=== PATIENT | male | born 1955 | race African-American/Black ===

== ENCOUNTER 2016-10-22 15:59 | Inpatient (IN) | payer OTHER ==
--- NOTE | 2016-10-22 18:45 | PDOC ---
History of Present Illness - History of Present Illness Initial Comments: 10/22/16 18:47 Patient is a 61 year old male with significant medical hx of DM, HLD, and HTN who is presenting to the ED with left second toe ulceration that he noticed today. The patient went to a clinic where he sees his chief communications officer and PCP to get his toenails clipped. When the chief communications officer found the ulcer, he referred the patient to the ED for possible IV abx. Denies fever, chills, or recent abx use. Patient does not remember his podiatrists name. PMD: Zac Encarnacion MD <Talita Valladares - Last Filed: 10/22/16 18:57> <Lizy Cullen - Last Filed: 10/22/16 23:02> - General Chief Complaint: Wound Stated Complaint: WOUND Past History <Talita Valladares - Last Filed: 10/22/16 18:57> - Past Medical History Anemia: No Asthma: No Cancer: No Cardiac Disorders: No CVA: No COPD: No CHF: No Dementia: No Diabetes: Yes GI Disorders: No Disorders: No HTN: Yes Hypercholesterolemia: Yes Liver Disease: No Seizures: No Thyroid Disease: No - Surgical History Abdominal Surgery: No Appendectomy: No Cardiac Surgery: No Cholecystectomy: No Lung Surgery: No Neurologic Surgery: No Orthopedic Surgery: No - Immunization History Immunization Up to Date: Yes - Psycho/Social/Smoking Cessation Hx Anxiety: No Suicidal Ideation: No Smoking History: Former smoker Have you smoked in the past 12 months: No Information on smoking cessation initiated: No Hx Alcohol Use: No Drug/Substance Use Hx: No Substance Use Type: Alcohol, Cocaine, Marijuana Hx Substance Use Treatment: No <Lizy Cullen - Last Filed: 10/22/16 23:02> - Past Medical History Allergies/Adverse Reactions: Allergies Allergy/AdvReac Type Severity Reaction Status Date / Time No Known Allergies Allergy Verified 10/22/16 16:01 Home Medications: Ambulatory Orders Insulin (Levemir) [Levemir Flexpen -] 6 units SQ BID 01/23/14 Aspirin [ASA -] 81 mg PO DAILY 10/22/16 Atorvastatin Ca [Lipitor] 40 mg PO HS 10/22/16 Hydrochlorothiazide [Hctz -] 25 mg PO DAILY 10/22/16 Ibuprofen [Motrin -] 400 mg PO PRN PRN 10/22/16 Losartan Potassium 50 mg PO DAILY 10/22/16 Metformin HCl [Glucophage] 1,000 mg PO BID 10/22/16 Metoprolol Succinate [Toprol Xl -] 25 mg PO DAILY 10/22/16 Review of Systems - Review of Systems Comments:: 10/22/16 18:48 GENERAL/CONSTITUTIONAL: No fever or chills. No weakness. HEAD, EYES, EARS, NOSE AND THROAT: No change in vision. No ear pain or discharge. No sore throat. CARDIOVASCULAR: No chest pain or shortness of breath. RESPIRATORY: No cough, wheezing, or hemoptysis. GASTROINTESTINAL: No nausea, vomiting, diarrhea or constipation. GENITOURINARY: No dysuria, frequency, or change in urination. MUSCULOSKELETAL: Left second toe ulcer. No joint or muscle swelling or pain. No neck or back pain. ENDOCRINE: No increased thirst. No abnormal weight change. SKIN: No rash NEUROLOGIC: No headache, vertigo, loss of consciousness, or change in strength/ sensation. <Talita Valladares - Last Filed: 10/22/16 18:57> *Physical Exam - Vital Signs Last Vital Signs Temp Pulse Resp BP Pulse Ox 97.9 F 95 H 20 151/88 100 10/22/16 16:03 10/22/16 16:03 10/22/16 16:03 10/22/16 16:03 10/22/16 16:03 - Physical Exam Comments: 10/22/16 18:51 GENERAL: Awake, alert, and fully oriented, in no acute distress HEAD: No signs of trauma EYES: PERRLA, EOMI, sclera anicteric, conjunctiva clear ENT: Auricles normal inspection, hearing grossly normal, nares patent, oropharynx clear without exudates. Moist mucosa NECK: Normal ROM, supple, no lymphadenopathy, JVD, or masses LUNGS: Breath sounds equal, clear to auscultation bilaterally. No wheezes, and no crackles HEART: Regular rate and rhythm, normal S1 and S2, no murmurs, rubs or gallops ABDOMEN: Soft, nontender, normoactive bowel sounds. No guarding, no rebound. No masses EXTREMITIES: Left second toe dorsal ulceration with some full erythema and warmth. Bilateral non-pitting pedal edema. 2+ pulses DP and PT bilaterally. Normal range of motion. No clubbing or cyanosis. NEUROLOGICAL: Cranial nerves II through XII grossly intact. Normal speech, normal gait SKIN: Warm, Dry, normal turgor, no rashes or lesions noted. HEMATOLOGIC/LYMPHATIC: No anemia, easy bleeding, or history of blood clots. ALLERGIC/IMMUNOLOGIC: No hives or skin allergy. <Talita Valladares - Last Filed: 10/22/16 18:57> - Vital Signs Last Vital Signs Temp Pulse Resp BP Pulse Ox 97.9 F 95 H 20 151/88 100 10/22/16 16:03 10/22/16 16:03 10/22/16 16:03 10/22/16 16:03 10/22/16 16:03 <Lizy Cullen - Last Filed: 10/22/16 23:02> ED Treatment Course - LABORATORY CBC & Chemistry Diagram: 10/22/16 19:05 10/22/16 19:05 <Lizy Cullen - Last Filed: 10/22/16 23:02> Medical Decision Making - Medical Decision Making 10/22/16 18:44 61 yo M with h/o DM, prior right foot great toe amputation, here today sent from chief communications officer office for concerns for left second toe with small foot ulcer. has had some foot redness and swelling. no feve or chills. no current antiobiotics. on exam small foot ulcer 0.5 x 0.5 cm, mild foot erythema, good pulses. plan : labs, abx, xray foot, will discuss with chief communications officer possible admittion. 10/22/16 22:34 d/w dr. aguilera, covering for dr encarnacion, unsure name of chief communications officer will provide in am. told to admit to hopsitalist. <Lizy Cullen - Last Filed: 10/22/16 23:02> *DC/Admit/Observation/Transfer - Attestations Scribe Attestion: 10/22/16 18:53 Documentation prepared by Talita Valladares, acting as medical doctor nuclear medicine for Lizy Cullen MD. <Talita Valladares - Last Filed: 10/22/16 18:57> - Discharge Dispostion Admit: Yes <Lizy Cullen - Last Filed: 10/22/16 23:02> Diagnosis at time of Disposition: Cellulitis, Ulcer of foot - Referrals Referrals: Zac Encarnacion [Primary Care Provider] -
[2016-10-22 19:14] LABS: EOSINOPHIL 1.3 % (0-4.5); MCH 28.1 pg (25.7-33.7); MCHC 32.6 g/dl (32.0-35.9); MEAN CELL VOLUME 86.3 fl (80-96); MEAN PLT VOLUME 8.4 fl (7.5-11.1); NEUTROPHILS 62.2 % (42.8-82.8); PLATELET COUNT 281 K/MM3 (134-434); RDW 12.6 % (11.9-15.9); WHITE BLOOD COUNT 7.6 K/mm3 (4.0-10.0)
[2016-10-22 19:48] LABS: ALBUMIN 3.3 g/dl (3.4-5.0); BILIRUBIN,TOTAL 0.4 mg/dL (0.2-1.0); CALCIUM 8.7 mg/dL (8.5-10.1); COCKROFT - GAULT 98.75; CREATININE 1.4 mg/dL (0.7-1.3); TOT PROT 6.9 g/dl (6.4-8.2)
[2016-10-22] MEDS ORDERED: VANCOMYCIN 1,000 MG in DEXTROSE 5%-WATER - 250 ML IVPB ONE (20:45)
[2016-10-22] MEDS ORDERED: PIPERACILLIN/TAZOB 3.375 GM/50 ML PRE-DOCKED IV ONE (20:45)
[2016-10-22] MEDS ORDERED: PIPERACILLIN/TAZOB 3.375 GM 50 ML IVPB ONE (21:01)
[2016-10-22] MEDS ORDERED: VANCOMYCIN 1 GRAM (PRE-DOCKED) 250 ML IVPB ONE (21:01)
--- NOTE | 2016-10-23 01:49 | HP ---
CHIEF COMPLAINT: Diabetic Ulcer to L- 2nd toe PCP: HISTORY OF PRESENT ILLNESS: This is a 61 y/o male with a PMHx of: HTN, HLD, DM, OA. Who presents to the ED with a diabetic ulcer to L- 2nd digit x? several days. Patient was sent in from the associate quality engineer's office for admission for IV ABX for a diabetic ulcer. Patient states" I'm on my feet a lot and my sneakers and shoes are a little tight." Patient reports having diabetic ulcer's in the past, which resulted in an amputation of his R- great toe. Patient denies fever, chills, SOB, CP, AP, N/V/D , dysuria. ER course was notable for: (1) No leukocytosis, afebrile (2) Glucose 126 (3) Recent Travel: None PAST MEDICAL HISTORY: See HPI PAST SURGICAL HISTORY: Amputation of R- Great Toe Social History: Smoking: Former 30 yrs ago Alcohol: Occasional- Beer Drugs: None Lives Independently, employed [employer] Family History: Father: Cardiac, Ulcer, Mother: Brain Tumor, DM Brother: DM Daughter: Bipolar, Anxiety Allergies No Known Allergies Allergy (Verified 10/22/16 16:01) HOME MEDICATIONS: Home Medications Medication Instructions Recorded Insulin (Levemir) [Levemir Flexpen 6 units SQ BID 01/23/14 -] Aspirin [ASA -] 81 mg PO DAILY 10/22/16 Atorvastatin Ca [Lipitor] 40 mg PO HS 10/22/16 Hydrochlorothiazide [Hctz -] 25 mg PO DAILY 10/22/16 Ibuprofen [Motrin -] 400 mg PO PRN PRN 10/22/16 Losartan Potassium 50 mg PO DAILY 10/22/16 Metformin HCl [Glucophage] 1,000 mg PO BID 10/22/16 Metoprolol Succinate [Toprol Xl -] 25 mg PO DAILY 10/22/16 REVIEW OF SYSTEMS CONSTITUTIONAL: Absent: fever, chills, diaphoresis, generalized weakness, malaise, loss of appetite, weight change HEENT: Absent: rhinorrhea, nasal congestion, throat pain, throat swelling, difficulty swallowing, mouth swelling, ear pain, eye pain, visual changes CARDIOVASCULAR: peripheral edema Absent: chest pain, syncope, palpitations, irregular heart rate, lightheadedness RESPIRATORY: Absent: cough, shortness of breath, dyspnea with exertion, orthopnea, wheezing, stridor, hemoptysis GASTROINTESTINAL: Absent: abdominal pain, abdominal distension, nausea, vomiting, diarrhea, constipation, melena, hematochezia GENITOURINARY: Absent: dysuria, frequency, urgency, hesitancy, hematuria, flank pain, genital pain MUSCULOSKELETAL: Absent: myalgia, arthralgia, joint swelling, back pain, neck pain SKIN: diabetic ulcer to Left toe #2 Absent: rash, itching, pallor HEMATOLOGIC/IMMUNOLOGIC: Absent: easy bleeding, easy bruising, lymphadenopathy, frequent infections ENDOCRINE: Absent: unexplained weight gain, unexplained weight loss, heat intolerance, cold intolerance NEUROLOGIC: Absent: headache, focal weakness or paresthesias, dizziness, unsteady gait, seizure, mental status changes, bladder or bowel incontinence PSYCHIATRIC: Absent: anxiety, depression, suicidal or homicidal ideation, hallucinations. PHYSICAL EXAMINATION GENERAL: Awake, alert, and fully oriented, in no acute distress. HEAD: Normal with no signs of trauma. EYES: Pupils equal, round and reactive to light, extraocular movements intact, sclera anicteric, conjunctiva clear. No lid lag. EARS, NOSE, THROAT: Ears normal, nares patent, oropharynx clear without exudates. Moist mucous membranes. NECK: Normal range of motion, supple without lymphadenopathy, JVD, or masses. LUNGS: Breath sounds equal, clear to auscultation bilaterally. No wheezes, and no crackles. No accessory muscle use. HEART: Regular rate and rhythm, normal S1 and S2 without murmur, rub or gallop. ABDOMEN: Soft, nontender, not distended, normoactive bowel sounds, no guarding, no rebound, no masses. No hepatomegaly or splenomegaly. MUSCULOSKELETAL: Normal range of motion at all joints. No bony deformities or tenderness. No CVA tenderness. UPPER EXTREMITIES: 2+ pulses, warm, well-perfused. No cyanosis. No clubbing. No peripheral edema. LOWER EXTREMITIES: 2+ pulses, warm, well-perfused. No calf tenderness. +2 pitting edema bilaterally below knee- feet NEUROLOGICAL: Cranial nerves II-XII intact. Normal speech. Gait not observed. PSYCHIATRIC: Cooperative. Good eye contact. Appropriate mood and affect. SKIN: Warm, dry, normal turgor, no rashes. Left second toe dorsal ulceration with some full erythema and warmth. Normal capillary refill. Laboratory Results - last 24 hr 10/22/16 10/22/16 10/22/16 19:05 19:05 19:05 WBC 7.6 RBC 3.97 L Hgb 11.2 L Hct 34.3 L MCV 86.3 MCHC 32.6 RDW 12.6 Plt Count 281 D MPV 8.4 Neutrophils % 62.2 Lymphocytes % 27.7 D Monocytes % 7.8 Eosinophils % 1.3 Basophils % 1.0 Sodium 139 Potassium 4.4 Chloride 106 Carbon Dioxide 23 Anion Gap 10 BUN 27 H D Creatinine 1.4 H Creat Clearance w eGFR 51.18 Random Glucose 126 H D Lactic Acid 1.239 Calcium 8.7 Total Bilirubin 0.4 AST 17 No NALT 29 Alkaline Phosphatase 86 Total Protein 6.9 Albumin 3.3 L ASSESSMENT/PLAN: This is a 61 y/o male with a PMHx of HTN,HLD, DM, OA. Admitted for Cellulitis Left 2nd toe, Diabetic Ulcer for further evaluation of their emergent condition. Plan: 1. ID: Cellulitis/ Diabetic Ulcer Left 2nd Toe - Blood Culture - No leukocytosis, afebrile - Started on Vancomycin, Zosyn in ED - Will continue - Appreciate ID consult - Monitor CBC - Monitor vitals - Wound care nurse 2. Card: HTN/HLD - Monitor BP - Continue home meds - Monitor renal function - Monitor LFTs 3. Endo: Diabetes Mellitus - Not Controlled - BGMs - ISS - HgbA1C in am 4. Musc: OA - Tylenol prn 5. FEN - Patient tolerates PO fluids - Replete lytes prn - Diabetic, Cardiac Prudent Diet 6. DVT Prophylaxis - OOB - SCDs - Heparin SQ Problem List - Problem (1) Cellulitis Code(s): L03.90 - CELLULITIS, UNSPECIFIED (2) Foot ulcer Code(s): L97.509 - NON-PRESSURE CHRONIC ULCER OTH PRT UNSP FOOT W UNSP SEVERITY (3) Diabetes Code(s): E11.9 - TYPE 2 DIABETES MELLITUS WITHOUT COMPLICATIONS (4) Diabetic foot Code(s): E11.8 - TYPE 2 DIABETES MELLITUS WITH UNSPECIFIED COMPLICATIONS (5) Hypertension Code(s): I10 - ESSENTIAL (PRIMARY) HYPERTENSION (6) HLD (hyperlipidemia) Code(s): E78.5 - HYPERLIPIDEMIA, UNSPECIFIED (7) DVT prophylaxis Code(s): UNZ6575 - Visit type - Emergency Visit Emergency Visit: Yes ED Registration Date: 10/22/16 Care time: The patient presented to the Emergency Department on the above date and was hospitalized for further evaluation of their emergent condition. - New Patient This patient is new to me today: Yes Date on this admission: 10/23/16 - Critical Care Critical Care patient: No
[2016-10-23 05:25] VITALS: BMI 40.0
[2016-10-23] MEDS ORDERED: VANCOMYCIN 1,000 MG in DEXTROSE 5%-WATER - 250 ML IVPB SCH (06:00)
[2016-10-23] MEDS ORDERED: VANCOMYCIN 1 GRAM (PRE-DOCKED) 1,000 MG/250 ML BAG IVPB ONE (06:15)
[2016-10-23] MEDS: HEPARIN NA (PORCINE) 5,000 UNITS/ML 1ML VIAL SQ SCH ×3 (06:21→21:34)
[2016-10-23] MEDS: INSULIN SLIDING SCALE (NOVOLOG) 1 VIAL SQ SCH ×3 (06:23→17:57)
[2016-10-23] MEDS ORDERED: PIPERACILLIN/TAZOB 3.375 GM/50 ML PRE-DOCKED IVPB ONE ×2 (06:45→10:00)
[2016-10-23 07:34] LABS: BASOPHIL 0.8 % (0-2.0); EOSINOPHIL 1.6 % (0-4.5); MCH 28.4 pg (25.7-33.7); MCHC 33.1 g/dl (32.0-35.9); MEAN CELL VOLUME 85.6 fl (80-96); MEAN PLT VOLUME 8.3 fl (7.5-11.1); NEUTROPHILS 65.6 % (42.8-82.8); PLATELET COUNT 259 K/MM3 (134-434); RDW 12.4 % (11.9-15.9); WHITE BLOOD COUNT 8.7 K/mm3 (4.0-10.0)
--- NOTE | 2016-10-23 09:40 | CONSULT ---
Consult Consult Specialty:: infectious diseases Reason for Consultation:: infected left foot 2nd toe - History of Present Illness Chief Complaint: pain and swelling of the toe History of Present Illness: This is a 61 y/o male with a PMHx of: HTN, HLD, DM, OA. Who presents to the admitted with a diabetic ulcer to L- 2nd digit several days. Patient was sent in from the body worker's office for admission for IV ABX for a diabetic ulcer. Patient states" I'm on my feet a lot and my sneakers and shoes are a little tight." Patient reports having diabetic ulcer's in the past, which resulted in an amputation of his R- great toe. according to the patient he has this problems of he leg since a long time also patient had issues with his right leg also patient has chronic venous insufficiency and has had leg issues off and on he always has edema over both his feet - History Source History Provided By: Patient Limitations to Obtaining History: No Limitations - Alcohol/Substance Use Hx Alcohol Use: No - Smoking History Smoking history: Former smoker Have you smoked in the past 12 months: No Home Medications - Allergies Allergies/Adverse Reactions: Allergies Allergy/AdvReac Type Severity Reaction Status Date / Time No Known Allergies Allergy Verified 10/22/16 16:01 - Home Medications Home Medications: Ambulatory Orders Insulin (Levemir) [Levemir Flexpen -] 6 units SQ BID 01/23/14 Aspirin [ASA -] 81 mg PO DAILY 10/22/16 Atorvastatin Ca [Lipitor] 40 mg PO HS 10/22/16 Hydrochlorothiazide [Hctz -] 25 mg PO DAILY 10/22/16 Ibuprofen [Motrin -] 400 mg PO PRN PRN 10/22/16 Losartan Potassium 50 mg PO DAILY 10/22/16 Metformin HCl [Glucophage] 1,000 mg PO BID 10/22/16 Metoprolol Succinate [Toprol Xl -] 25 mg PO DAILY 10/22/16 Review of Systems - Review of Systems Constitutional: reports: No Symptoms Eyes: reports: No Symptoms HENT: reports: No Symptoms Neck: reports: No Symptoms Cardiovascular: reports: No Symptoms Respiratory: reports: No Symptoms Gastrointestinal: reports: No Symptoms Genitourinary: reports: No Symptoms Musculoskeletal: reports: Other Integumentary: reports: Erythema, Wound Neurological: reports: No Symptoms Endocrine: reports: No Symptoms Hematology/Lymphatic: reports: No Symptoms Psychiatric: reports: No Symptoms Physical Exam Vital Signs: Vital Signs Temperature 98.0 F 10/23/16 05:20 Pulse Rate 80 10/23/16 05:20 Respiratory Rate 18 10/23/16 05:20 Blood Pressure 156/69 10/23/16 05:20 O2 Sat by Pulse Oximetry (%) 96 10/23/16 05:04 Constitutional: Yes: No Distress, Calm, Obese HENT: Yes: Atraumatic Neck: Yes: Supple Cardiovascular: Yes: Regular Rate and Rhythm Respiratory: Yes: Regular, CTA Bilaterally Gastrointestinal: Yes: Normal Bowel Sounds, Soft Musculoskeletal: Yes: Other Extremities: Yes: Other Edema: LLE: 2+, RLE: 2+ Peripheral Pulses WNL: (could not feel dp on both sides) Integumentary: Yes: Venous Stasis Changes, Other (ulcer on the 2nd toe left foot ,minimal erythema and draiange) Wound/Incision: Yes: Open to air Neurological: Yes: Alert, Oriented Psychiatric: Yes: Alert, Oriented Labs: CBC, BMP 10/23/16 06:30 Imaging - Results X-ray: Report Reviewed (official result awaited) Assessment/Plan Diabetic Ulcer Left 2nd Toe HTN/HLD : Diabetes Mellitus OA obesity plan started patient on unasyn wound care vascular should see the patient for blood supply rest as per primary team
[2016-10-23] MEDS ORDERED: HYDROCHLOROTHIAZIDE 25 MG TABLET (FP) PO SCH (10:00)
[2016-10-23] MEDS ORDERED: PIPERACILLIN/TAZOB 3.375 GM/50 ML PRE-DOCKED IVPB SCH (10:00)
[2016-10-23] MEDS: LOSARTAN POTASSIUM 50 MG TABLET (FP) PO SCH (10:13)
[2016-10-23] MEDS: METOPROLOL SUCCINATE 25 MG TAB.SR.24H (FP) PO SCH (10:13)
[2016-10-23] MEDS: ASPIRIN 81 MG CHEWABLE TABLETS PO SCH (10:13)
[2016-10-23] MEDS: AMPICILLIN NA/SULBACTAM NA 3 GM in SODIUM CHLORIDE 100 ML IVPB SCH ×2 (12:15→19:58)
--- NOTE | 2016-10-23 16:14 | EKG ---
Test Reason : Blood Pressure : / mmHG Vent. Rate : 078 BPM Atrial Rate : 078 BPM P-R Int : 208 ms QRS Dur : 084 ms QT Int : 400 ms P-R-T Axes : 082 -45 051 degrees QTc Int : 456 ms POOR DATA QUALITY, INTERPRETATION MAY BE ADVERSELY AFFECTED NORMAL SINUS RHYTHM LEFT AXIS DEVIATION PULMONARY DISEASE PATTERN SEPTAL INFARCT , AGE UNDETERMINED INFERIOR INFARCT , AGE UNDETERMINED ABNORMAL ECG WHEN COMPARED WITH ECG OF 15-NOV-2013 17:48, SEPTAL INFARCT IS NOW PRESENT NO SIGNIFICANT CHANGE WAS FOUND Confirmed by MIKAL CHILDS MD ([id number]) on 10/23/2016 4:14:38 PM Referred By: Confirmed By:MIKAL CHILDS MD
--- NOTE | 2016-10-23 17:19 | PN ---
Physical Exam: SUBJECTIVE: Patient seen and examined. He was sitting up in bed, denies any pain to his left second toe. OBJECTIVE: Vital Signs Period Temp Pulse Resp BP Sys/Herron Pulse Ox Last 24 Hr 97.6 F-98.0 F 79-80 18-18 152-158/69-100 96-96 GENERAL: Awake, alert, and fully oriented, in no acute distress. HEAD: Normal with no signs of trauma. EYES: Pupils equal, round and reactive to light, extraocular movements intact, sclera anicteric, conjunctiva clear. No lid lag. EARS, NOSE, THROAT: Ears normal, nares patent, oropharynx clear without exudates. Moist mucous membranes. NECK: Normal range of motion, supple without lymphadenopathy, JVD, or masses. LUNGS: Breath sounds equal, clear to auscultation bilaterally. No wheezes, and no crackles. No accessory muscle use. HEART: Regular rate and rhythm ABDOMEN: Soft, nontender, not distended, normoactive bowel sounds, no guarding, no rebound, no masses. No hepatomegaly or splenomegaly. MUSCULOSKELETAL: Normal range of motion at all joints. No bony deformities or tenderness. No CVA tenderness. LOWER EXTREMITIES: +2 pitting edema bilaterally below knee>feet - diabetic discolored ulceration on left second toe NEUROLOGICAL: Normal speech. Gait not observed. PSYCHIATRIC: Cooperative. Good eye contact. Appropriate mood and affect. Laboratory Results - last 24 hr 10/23/16 10/23/16 10/23/16 06:21 06:30 12:09 WBC 8.7 RBC 3.83 L Hgb 10.8 L Hct 32.8 L MCV 85.6 MCHC 33.1 RDW 12.4 Plt Count 259 MPV 8.3 Neutrophils % 65.6 Lymphocytes % 23.2 Monocytes % 8.8 Eosinophils % 1.6 Basophils % 0.8 POC Glucometer 132 161 Active Medications Generic Name Dose Route Start Last Admin Trade Name Freq PRN Reason Stop Dose Admin Aspirin 81 mg 10/23/16 10:00 10/23/16 10:13 Asa - PO 81 mg DAILY GERARDO Administration Atorvastatin Calcium 40 mg 10/23/16 22:00 Lipitor - PO HS GERARDO Heparin Sodium (Porcine) 5,000 unit 10/23/16 06:00 10/23/16 06:21 Heparin - SQ 5,000 unit TID GERARDO Administration Ampicillin Sodium/Sulbactam 100 mls @ 200 mls/hr 10/23/16 10:00 10/23/16 12:15 Sodium 3 gm/ Sodium Chloride IVPB 200 mls/hr Q8H-IV GERARDO Administration Insulin Aspart 1 vial 10/23/16 07:00 10/23/16 12:14 Novolog Vial Sliding Scale - SQ 2 units TIDAC GERARDO Administration Protocol Losartan Potassium 50 mg 10/23/16 10:00 10/23/16 10:13 Cozaar - PO 50 mg DAILY GERARDO Administration Metoprolol Succinate 25 mg 10/23/16 10:00 10/23/16 10:13 Toprol Xl - PO 25 mg DAILY GERARDO Administration ASSESSMENT/PLAN: Patient is a 61 year old male with a significant medical history of hypertension , hyperlipidemia, diabetes and right great toe amputation. He was sent from his accredited pharmacy technician office for admission for antibiotics for a left second toe ulcer and discoloration. Patient reports having diabetic ulcer's in the past, with amputation of his right great toe. Patient denies fever, chills or shortness of breath. ID: Left second diabetic toe ulceration and cellulitis, +slough Assessment/Plan: Started on Unasyn by ID Monitor vitals and WBC Given Vanco and Zosyn in ED Fast Food Cashier and vascular consulted Left great toe with discoloration Cardiology: Hypertension Assessment/Plan: monitor BP On Cozaar 50mg daily, Metoprolol 25mg daily Hyperlipidemia Assessment/Plan: On Lipitor Endocrine: Diabetes Mellitus Assessment/Plan: Novolog sliding scale Will order [id number] Renal: CHARLES - Creat 1.4, baseline 1.1 Will hydrate with NS @75cc and monitor F.E.N. Fluids: tolerating PO. on ivf for CHARLES Electrolytes: monitor lytes Nutrition: diabetic diet Prophylaxis: DVT Prophy: Heparin BID GI: Protonix 40mg daily Dispositon: Requires inpatient hospitalization. Full Code. Visit type - Emergency Visit Emergency Visit: Yes ED Registration Date: 10/22/16 Care time: The patient presented to the Emergency Department on the above date and was hospitalized for further evaluation of their emergent condition. - New Patient This patient is new to me today: Yes Date on this admission: 10/23/16 - Critical Care Critical Care patient: No - Discharge Referral Referred to [facility] Med P.C.: No
--- NOTE | 2016-10-23 17:53 | CONSULT ---
Consult - Alcohol/Substance Use Hx Alcohol Use: No - Smoking History Smoking history: Former smoker Have you smoked in the past 12 months: No Home Medications - Allergies Allergies/Adverse Reactions: Allergies Allergy/AdvReac Type Severity Reaction Status Date / Time No Known Allergies Allergy Verified 10/22/16 16:01 - Home Medications Home Medications: Ambulatory Orders Insulin (Levemir) [Levemir Flexpen -] 6 units SQ BID 01/23/14 Aspirin [ASA -] 81 mg PO DAILY 10/22/16 Atorvastatin Ca [Lipitor] 40 mg PO HS 10/22/16 Hydrochlorothiazide [Hctz -] 25 mg PO DAILY 10/22/16 Ibuprofen [Motrin -] 400 mg PO PRN PRN 10/22/16 Losartan Potassium 50 mg PO DAILY 10/22/16 Metformin HCl [Glucophage] 1,000 mg PO BID 10/22/16 Metoprolol Succinate [Toprol Xl -] 25 mg PO DAILY 10/22/16 Physical Exam Vital Signs: Vital Signs Temperature 98.5 F 10/23/16 17:36 Pulse Rate 83 10/23/16 17:36 Respiratory Rate 20 10/23/16 17:36 Blood Pressure 151/88 10/23/16 17:36 O2 Sat by Pulse Oximetry (%) 96 10/23/16 05:04 Labs: CBC, BMP 10/23/16 06:30 Assessment/Plan Vascular Surgery Patient is a 61 year old male with significant medical hx of DM, HLD, and HTN who is presenting to the ED with left second toe ulceration that he noticed today. The patient went to a clinic where he sees his crowning hammer operator and PCP to get his toenails clipped. When the crowning hammer operator found the ulcer, he referred the patient to the ED for possible IV abx. Denies fever, chills, or recent abx use. Patient does not remember his podiatrists name. PMD: Zac Encarnacion MD PE Head - NC/AT Lung - CTA heart - RRR abd - soft,nt,nd, ext - left second toe ulcer with slough No palpable pulses. A/P Left second toe ulcer with slough No palpable pulses. Currently the Cr is 1.4. Please hydrate and we can either get a CTA or do a angiogram with intervention. Will see ang to see if the Cr is improving. Emma to ulcer daily Esa Mead DO
[2016-10-23] MEDS ORDERED: SODIUM CHLORIDE 1,000 ML IV SCH (18:45)
[2016-10-23] MEDS: COLLAGENASE CLOSTRIDIUM HIST. 30 GRAMS TUBE TP SCH (19:59)
[2016-10-23] MEDS: SODIUM CHLORIDE 1,000 ML IV SCH (20:01)
[2016-10-23] MEDS: ATORVASTATIN CA 40 MG TABLET (FP) PO SCH (21:32)
[2016-10-24] MEDS: AMPICILLIN NA/SULBACTAM NA 3 GM in SODIUM CHLORIDE 100 ML IVPB SCH ×3 (01:17→17:34)
[2016-10-24] MEDS: HEPARIN NA (PORCINE) 5,000 UNITS/ML 1ML VIAL SQ SCH ×3 (06:02→21:28)
[2016-10-24] MEDS: INSULIN SLIDING SCALE (NOVOLOG) 1 VIAL SQ SCH ×3 (06:04→17:33)
[2016-10-24 08:44] LABS: ANION GAP 11 (8-16); CALCIUM 8.7 mg/dL (8.5-10.1); CO2 25 mmol/L (21-32); COCKROFT - GAULT 122.66; CREATININE 1.2 mg/dL (0.7-1.3); GLUCOSE,RANDOM 141 mg/dL (74-106)
[2016-10-24] MEDS ORDERED: PT OWN MED DRAWER 7, Y5N ONE ×2 (09:22→17:23)
[2016-10-24] MEDS: PANTOPRAZOLE 40 MG TABLET (FP) PO SCH (09:24)
[2016-10-24] MEDS: LOSARTAN POTASSIUM 50 MG TABLET (FP) PO SCH (09:24)
[2016-10-24] MEDS: METOPROLOL SUCCINATE 25 MG TAB.SR.24H (FP) PO SCH (09:24)
[2016-10-24] MEDS: ASPIRIN 81 MG CHEWABLE TABLETS PO SCH (09:24)
[2016-10-24] MEDS: COLLAGENASE CLOSTRIDIUM HIST. 30 GRAMS TUBE TP SCH (09:25)
[2016-10-24 10:08] LABS: BASOPHIL 0.6 % (0-2.0); EOSINOPHIL 1.3 % (0-4.5); MCH 28.7 pg (25.7-33.7); MCHC 33.8 g/dl (32.0-35.9); MEAN PLT VOLUME 8.6 fl (7.5-11.1); NEUTROPHILS 68.8 % (42.8-82.8); PLATELET COUNT 285 K/MM3 (134-434); RDW 12.6 % (11.9-15.9); WHITE BLOOD COUNT 8.4 K/mm3 (4.0-10.0)
--- NOTE | 2016-10-24 10:09 | PN ---
Physical Exam: SUBJECTIVE: Patient seen and examined. State that he is starting to have pain, discomfort of the left foot. As per patient, tylenol is not relieving his pain/discomfort OBJECTIVE: Will order Motrin x 1 and monitor Left lower ext +edema, no redness. Right ankle with more edema Doppler for bilateral lower ext to rule out DVT Creatinine improved with hydration 1.7>1.2 Vital Signs Period Temp Pulse Resp BP Sys/Herron Pulse Ox Last 24 Hr 97.7 F-98.5 F 80-83 18-20 137-151/70-88 GENERAL: Awake, alert, and fully oriented, in no acute distress. HEAD: Normal with no signs of trauma. EYES: Pupils equal, round and reactive to light, extraocular movements intact, sclera anicteric, conjunctiva clear. No lid lag. EARS, NOSE, THROAT: Ears normal, nares patent, oropharynx clear without exudates. Moist mucous membranes. NECK: Normal range of motion, supple without lymphadenopathy, JVD, or masses. LUNGS: Breath sounds equal, clear to auscultation bilaterally. No wheezes, and no crackles. No accessory muscle use. HEART: Regular rate and rhythm ABDOMEN: Soft, nontender, not distended, normoactive bowel sounds, no guarding, no rebound, no masses. No hepatomegaly or splenomegaly. MUSCULOSKELETAL: Normal range of motion at all joints. No bony deformities or tenderness. No CVA tenderness. LOWER EXTREMITIES: +3 pitting edema of right leg>foot, +2 pitting edema of left leg >foot. +diabetic discolored ulceration on left second toe, amputation of right foot great toe. NEUROLOGICAL: Normal speech. Gait not observed. PSYCHIATRIC: Cooperative. Good eye contact. Appropriate mood and affect. Laboratory Results - last 24 hr 10/23/16 10/23/16 10/24/16 12:09 17:56 05:47 Sodium Potassium Chloride Carbon Dioxide Anion Gap BUN Creatinine POC Glucometer 161 164 154 Random Glucose Calcium 10/24/16 07:30 Sodium 140 Potassium 4.1 Chloride 104 Carbon Dioxide 25 Anion Gap 11 BUN 19 H D Creatinine 1.2 POC Glucometer Random Glucose 141 H Calcium 8.7 Active Medications Generic Name Dose Route Start Last Admin Trade Name Freq PRN Reason Stop Dose Admin Aspirin 81 mg 10/23/16 10:00 10/24/16 09:24 Asa - PO 81 mg DAILY GERARDO Administration Atorvastatin Calcium 40 mg 10/23/16 22:00 10/23/16 21:32 Lipitor - PO 40 mg HS GERARDO Administration Collagenase 1 applic 10/23/16 18:00 10/24/16 09:25 Santyl - TP 1 applic DAILY GERARDO Administration Heparin Sodium (Porcine) 5,000 unit 10/23/16 06:00 10/24/16 06:02 Heparin - SQ 5,000 unit TID GERARDO Administration Ampicillin Sodium/Sulbactam 100 mls @ 200 mls/hr 10/23/16 10:00 10/24/16 09:24 Sodium 3 gm/ Sodium Chloride IVPB 200 mls/hr Q8H-IV GERARDO Administration Sodium Chloride 1,000 mls @ 75 mls/hr 10/23/16 18:45 10/23/16 20:01 Normal Saline - IV 75 mls/hr ASDIR GERARDO Administration Insulin Aspart 1 vial 10/23/16 07:00 10/24/16 06:04 Novolog Vial Sliding Scale - SQ 2 units TIDAC GERARDO Administration Protocol Losartan Potassium 50 mg 10/23/16 10:00 10/24/16 09:24 Cozaar - PO 50 mg DAILY GERARDO Administration Metoprolol Succinate 25 mg 10/23/16 10:00 10/24/16 09:24 Toprol Xl - PO 25 mg DAILY GERARDO Administration Pantoprazole Sodium 40 mg 10/24/16 10:00 10/24/16 09:24 Protonix - PO 40 mg DAILY GERARDO Administration ASSESSMENT/PLAN: Patient is a 61 year old male with a significant medical history of hypertension , hyperlipidemia, diabetes and right great toe amputation. He was sent from his osteologist office for admission for antibiotics for a left second toe ulcer and discoloration. Patient reports having diabetic ulcer's in the past, with amputation of his right great toe. Patient denies fever, chills or shortness of breath. Imaging: Vascular studty: DVT of bilateral lower ext. negative ID: Left second diabetic toe ulceration and cellulitis, +slough Assessment/Plan: Left foot 2nd toe with discoloration, diabetic ulcer, on Santyl Amputated great toe of the right foot Started on Unasyn by ID on 10/23 WBC within normal limits, remains afebrile Negative for DVT of bilateral lower extremities Vice President [employer] consulted Vascular following Cardiology: Hypertension Assessment/Plan: monitor BP On Cozaar 50mg daily, Metoprolol 25mg daily Hyperlipidemia Assessment/Plan: On Lipitor Endocrine: Diabetes Mellitus Assessment/Plan: Novolog sliding scale Will order [id number] Renal: CHARLES - Creat 1.2, baseline 1.1 Will hydrate with NS @75cc and monitor F.E.N. Fluids: tolerating PO. on ivf for CHARLES Electrolytes: monitor lytes Nutrition: diabetic diet Prophylaxis: DVT Prophy: Heparin BID GI: Protonix 40mg daily Dispositon: Requires inpatient hospitalization. Full Code. Visit type - Emergency Visit Emergency Visit: Yes ED Registration Date: 10/22/16 Care time: The patient presented to the Emergency Department on the above date and was hospitalized for further evaluation of their emergent condition. - New Patient This patient is new to me today: No - Critical Care Critical Care patient: No - Discharge Referral Referred to [facility] Med P.C.: No
[2016-10-24] MEDS ORDERED: IBUPROFEN 400 MG TABLET (FP) PO ONE ×2 (10:45→14:00)
[2016-10-24 10:53] LABS: ALBUMIN 3.2 g/dl (3.4-5.0); ALK PHOS 87 U/L (45-117); BILIRUBIN,TOTAL 0.7 mg/dL (0.2-1.0); SGOT/AST 15 U/L (15-37); SGPT/ALT 21 U/L (12-78); TOT PROT 6.8 g/dl (6.4-8.2)
--- NOTE | 2016-10-24 17:14 | PN ---
Progress Note, Physician History of Present Illness: stable no new issues - Current Medication List Current Medications: Active Medications Aspirin (Asa -) 81 mg PO DAILY [facility] Last Admin: 10/24/16 09:24 Dose: 81 mg Atorvastatin Calcium (Lipitor -) 40 mg PO HS [facility] Last Admin: 10/23/16 21:32 Dose: 40 mg Collagenase (Santyl -) 1 applic TP DAILY [facility] Last Admin: 10/24/16 09:25 Dose: 1 applic Heparin Sodium (Porcine) (Heparin -) 5,000 unit SQ TID [facility] Last Admin: 10/24/16 13:43 Dose: 5,000 unit Ampicillin Sodium/Sulbactam (Sodium 3 gm/ Sodium Chloride) 100 mls @ 200 mls/ hr IVPB Q8H-IV [facility] Last Admin: 10/24/16 09:24 Dose: 200 mls/hr Sodium Chloride (Normal Saline -) 1,000 mls @ 75 mls/hr IV ASDIR [facility] Last Admin: 10/23/16 20:01 Dose: 75 mls/hr Insulin Aspart (Novolog Vial Sliding Scale -) 1 vial SQ TIDAC [facility] PRN Reason: Protocol Last Admin: 10/24/16 12:40 Dose: Not Given Losartan Potassium (Cozaar -) 50 mg PO DAILY [facility] Last Admin: 10/24/16 09:24 Dose: 50 mg Metoprolol Succinate (Toprol Xl -) 25 mg PO DAILY [facility] Last Admin: 10/24/16 09:24 Dose: 25 mg Pantoprazole Sodium (Protonix -) 40 mg PO DAILY [facility] Last Admin: 10/24/16 09:24 Dose: 40 mg - Objective Vital Signs: Vital Signs Temperature 97.9 F 10/24/16 16:45 Pulse Rate 76 10/24/16 16:45 Respiratory Rate 18 10/24/16 16:45 Blood Pressure 141/89 10/24/16 16:45 O2 Sat by Pulse Oximetry (%) 96 10/23/16 10:00 Constitutional: Yes: No Distress, Calm Cardiovascular: Yes: Regular Rate and Rhythm Respiratory: Yes: Regular, CTA Bilaterally Gastrointestinal: Yes: Normal Bowel Sounds, Soft Musculoskeletal: Yes: Other Extremities: Yes: Other Edema: LLE: 1+, RLE: 1+ Peripheral Pulses: Left Doralis Pedis: 0, Right Dorsalis Pedis: 0 Wound/Incision: Yes: Other Neurological: Yes: Alert, Oriented Psychiatric: Yes: Alert, Oriented Labs: CBC, BMP 10/24/16 07:00 10/24/16 07:30 Assessment/Plan Diabetic Ulcer Left 2nd Toe HTN/HLD : Diabetes Mellitus OA obesity pvd plan vascular note noted agree with the plan continue abx for now rest as per primary team
[2016-10-24] MEDS: ATORVASTATIN CA 40 MG TABLET (FP) PO SCH (21:28)
[2016-10-25] MEDS ORDERED: PT OWN MED DRAWER 7, Y5N ONE ×3 (00:59→16:59)
[2016-10-25] MEDS: AMPICILLIN NA/SULBACTAM NA 3 GM in SODIUM CHLORIDE 100 ML IVPB SCH ×3 (01:08→17:01)
[2016-10-25] MEDS: INSULIN SLIDING SCALE (NOVOLOG) 1 VIAL SQ SCH ×3 (06:07→16:56)
[2016-10-25] MEDS: SODIUM CHLORIDE 1,000 ML IV SCH (06:32)
[2016-10-25] MEDS: HEPARIN NA (PORCINE) 5,000 UNITS/ML 1ML VIAL SQ SCH ×3 (06:32→23:02)
[2016-10-25 07:52] LABS: BASOPHIL 0.8 % (0-2.0); EOSINOPHIL 2.5 % (0-4.5); MCH 28.5 pg (25.7-33.7); MCHC 33.3 g/dl (32.0-35.9); MEAN CELL VOLUME 85.5 fl (80-96); MEAN PLT VOLUME 8.6 fl (7.5-11.1); NEUTROPHILS 59.4 % (42.8-82.8); PLATELET COUNT 275 K/MM3 (134-434); RDW 12.4 % (11.9-15.9); WHITE BLOOD COUNT 6.4 K/mm3 (4.0-10.0)
[2016-10-25 08:32] LABS: BILIRUBIN,TOTAL 0.5 mg/dL (0.2-1.0); SGOT/AST 12 U/L (15-37); SGPT/ALT 19 U/L (12-78); TOT PROT 6.4 g/dl (6.4-8.2)
[2016-10-25 08:35] LABS: ALK PHOS 80 U/L (45-117); ANION GAP 14 (8-16); CALCIUM 8.2 mg/dL (8.5-10.1); CO2 23 mmol/L (21-32); COCKROFT - GAULT 133.81; CREATININE 1.1 mg/dL (0.7-1.3); GLUCOSE,RANDOM 140 mg/dL (74-106)
[2016-10-25] MEDS: PANTOPRAZOLE 40 MG TABLET (FP) PO SCH (09:48)
[2016-10-25] MEDS: LOSARTAN POTASSIUM 50 MG TABLET (FP) PO SCH (09:48)
[2016-10-25] MEDS: ASPIRIN 81 MG CHEWABLE TABLETS PO SCH (09:48)
[2016-10-25] MEDS: METOPROLOL SUCCINATE 50 MG TAB.SR.24H (FP) PO SCH ×2 (09:49→11:34)
[2016-10-25] MEDS: COLLAGENASE CLOSTRIDIUM HIST. 30 GRAMS TUBE TP SCH (09:49)
--- NOTE | 2016-10-25 10:15 | PN ---
Physical Exam: SUBJECTIVE: Patient seen and examined. States he is feeling down since being hospitalized. "i cant provided for my family being in here" Wants to go home tomorrow. OBJECTIVE: Creatinine improved with IVF IVF stopped secondary to hypertension Assured patient we are working on a safe d/c plan for him but he will need to have vascular and ID clearance prior to d/c Vital Signs Period Temp Pulse Resp BP Sys/Herron Pulse Ox Last 24 Hr 97 F-98.7 F 76-90 18-20 131-161/71-105 99 GENERAL: Awake, alert, and fully oriented, in no acute distress. HEAD: Normal with no signs of trauma. EYES: Pupils equal, round and reactive to light, extraocular movements intact, sclera anicteric, conjunctiva clear. No lid lag. EARS, NOSE, THROAT: Ears normal, nares patent, oropharynx clear without exudates. Moist mucous membranes. NECK: Normal range of motion, supple without lymphadenopathy, JVD, or masses. LUNGS: Breath sounds equal, clear to auscultation bilaterally. No wheezes, and no crackles. No accessory muscle use. HEART: Regular rate and rhythm ABDOMEN: Soft, nontender, not distended, normoactive bowel sounds, no guarding, no rebound, no masses. No hepatomegaly or splenomegaly. MUSCULOSKELETAL: Normal range of motion at all joints. No bony deformities or tenderness. No CVA tenderness. LOWER EXTREMITIES: +3 pitting edema of right leg>foot, +2 pitting edema of left leg >foot. +diabetic discolored ulceration on left second toe, amputation of right foot great toe. NEUROLOGICAL: Normal speech. Gait not observed. PSYCHIATRIC: Cooperative. Good eye contact. Appropriate mood and affect. Laboratory Results - last 24 hr 10/24/16 10/24/16 10/24/16 07:00 07:30 12:39 WBC 8.4 RBC 4.13 Hgb 11.9 D Hct 35.1 L MCV 85.0 MCHC 33.8 RDW 12.6 Plt Count 285 MPV 8.6 Neutrophils % 68.8 Lymphocytes % 22.0 Monocytes % 7.3 Eosinophils % 1.3 Basophils % 0.6 Sodium Potassium Chloride Carbon Dioxide Anion Gap BUN Creatinine Creat Clearance w eGFR Y POC Glucometer 149 Random Glucose Hemoglobin A1c % Calcium Total Bilirubin 0.7 D AST 15 ALT 21 D Alkaline Phosphatase 87 Total Protein 6.8 Albumin 3.2 L 10/24/16 10/25/16 10/25/16 16:51 05:54 07:00 WBC 6.4 RBC 3.98 L Hgb 11.3 L Hct 34.0 L MCV 85.5 MCHC 33.3 RDW 12.4 Plt Count 275 MPV 8.6 Neutrophils % 59.4 Lymphocytes % 28.4 D Monocytes % 8.9 Eosinophils % 2.5 D Basophils % 0.8 Sodium Potassium Chloride Carbon Dioxide Anion Gap BUN Creatinine Creat Clearance w eGFR POC Glucometer 194 145 Random Glucose Hemoglobin A1c % Calcium Total Bilirubin AST ALT Alkaline Phosphatase Total Protein Albumin 10/25/16 10/25/16 07:00 07:00 WBC RBC Hgb Hct MCV MCHC RDW Plt Count MPV Neutrophils % Lymphocytes % Monocytes % Eosinophils % Basophils % Sodium 141 Potassium 4.1 Chloride 104 Carbon Dioxide 23 Anion Gap 14 BUN 17 Creatinine 1.1 Creat Clearance w eGFR > 60 POC Glucometer Random Glucose 140 H Hemoglobin A1c % 8.6 H D Calcium 8.2 L Total Bilirubin 0.5 D AST 12 L ALT 19 Alkaline Phosphatase 80 Total Protein 6.4 Albumin 3.0 L Active Medications Generic Name Dose Route Start Last Admin Trade Name Freq PRN Reason Stop Dose Admin Aspirin 81 mg 10/23/16 10:00 10/25/16 09:48 Asa - PO 81 mg DAILY GERARDO Administration Atorvastatin Calcium 40 mg 10/23/16 22:00 10/24/16 21:28 Lipitor - PO 40 mg HS GERARDO Administration Collagenase 1 applic 10/23/16 18:00 10/25/16 09:49 Santyl - TP 1 applic DAILY GERARDO Administration Heparin Sodium (Porcine) 5,000 unit 10/23/16 06:00 10/25/16 06:32 Heparin - SQ 5,000 unit TID GERARDO Administration Ampicillin Sodium/Sulbactam 100 mls @ 200 mls/hr 10/23/16 10:00 10/25/16 09:48 Sodium 3 gm/ Sodium Chloride IVPB 200 mls/hr Q8H-IV GERARDO Administration Insulin Aspart 1 vial 10/23/16 07:00 10/25/16 06:07 Novolog Vial Sliding Scale - SQ Not Given TIDAC [facility] Protocol Losartan Potassium 50 mg 10/23/16 10:00 10/25/16 09:48 Cozaar - PO 50 mg DAILY GERARDO Administration Metoprolol Succinate 50 mg 10/25/16 08:30 10/25/16 09:49 Toprol Xl - PO 50 mg DAILY GERARDO Administration Pantoprazole Sodium 40 mg 10/24/16 10:00 10/25/16 09:48 Protonix - PO 40 mg DAILY GERARDO Administration ASSESSMENT/PLAN: Patient is a 61 year old male with a significant medical history of hypertension , hyperlipidemia, diabetes and right great toe amputation. 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 Patient reports having diabetic ulcer's in the past, with amputation of his right great toe. Patient denies fever, chills or shortness of breath. Imaging: Vascular studty: DVT of bilateral lower ext. negative ID: Left second diabetic toe ulceration and cellulitis, +slough Assessment/Plan: Left foot 2nd toe with discoloration, anterior toe diabetic ulcer, on Santyl BID Amputated great toe of the right foot Started on Unasyn by ID on 10/23 WBC within normal limits, remains afebrile Negative for DVT of bilateral lower extremities Hydroelectric Plant Maintainer consulted and saw patient Vascular following for possible CTA/angio Cardiology: Hypertension - chronic Assessment/Plan: Elevated BP On Cozaar 50mg daily, Metoprolol increased [id number] to 50mg daily Monitor BP, IVF discontinued Hyperlipidemia Assessment/Plan: On Lipitor Endocrine: Diabetes Mellitus Assessment/Plan: Novolog sliding scale HmgA1c 8.6 Renal: CHARLES - Creat 1.2, baseline 1.1 Assessment/Plan: d/c ivf secondary to hypertension Renal function stable F.E.N. Fluids: tolerating PO. on ivf for CHARLES Electrolytes: monitor lytes Nutrition: diabetic diet Prophylaxis: DVT Prophy: Heparin BID GI: Protonix 40mg daily Dispositon: Requires inpatient hospitalization. Full Code. Visit type - Emergency Visit Emergency Visit: Yes ED Registration Date: 10/22/16 Care time: The patient presented to the Emergency Department on the above date and was hospitalized for further evaluation of their emergent condition. - New Patient This patient is new to me today: No - Critical Care Critical Care patient: No - Discharge Referral Referred to [facility] Med P.C.: No
--- NOTE | 2016-10-25 10:52 | CONSULT ---
Consult - text type - Consultation Consultation Note: Podiatry Consult: Pleasant 61 year old DM M presents for admission from PCP's office for L 2nd toe ulcer non-healing. Patient is a former smoker. Denies F/V/N/C/SOB. Does not recall how long ulcer has been there. Has a history of R great toe amputation. Does not he has element of circulation problems. PMHx: DM, HTN, HLP, former smoker Meds: noted in chart ALL: NKMA MARLENI: L foot: pedal pulses non-palpable, TG wnl, CFT brisk to toes. L 2nd toe dorsal IPJ ulcer with fibrotic base, no probing to bone, no purulence, no fluctuance, no erythema, no ascending cellulitis, no signs of active infection. WBC: 6.4 L foot XR: no bony destruction to suggest OM Imp: 61 year old DM M with L 2nd toe ulcer, PVD 1. Continue local wound care with santyl daily to L 2nd toe 2. For vascular intervention 3. No podiatric surgical intervention needed, should heal well once circulation addressed 4. Thank you for the courtesy of this consultation. Shahnaz Mueller DPM
[2016-10-25] MEDS: ATORVASTATIN CA 40 MG TABLET (FP) PO SCH (23:02)
[2016-10-26] MEDS ORDERED: PT OWN MED DRAWER 7, Y5N ONE ×3 (02:24→17:31)
[2016-10-26] MEDS: AMPICILLIN NA/SULBACTAM NA 3 GM in SODIUM CHLORIDE 100 ML IVPB SCH ×3 (02:37→17:36)
[2016-10-26] MEDS: INSULIN SLIDING SCALE (NOVOLOG) 1 VIAL SQ SCH ×3 (06:08→17:35)
[2016-10-26] MEDS: HEPARIN NA (PORCINE) 5,000 UNITS/ML 1ML VIAL SQ SCH ×3 (06:09→21:24)
[2016-10-26 07:53] LABS: BASOPHIL 0.8 % (0-2.0); EOSINOPHIL 1.8 % (0-4.5); MCH 28.5 pg (25.7-33.7); MCHC 33.4 g/dl (32.0-35.9); MEAN CELL VOLUME 85.3 fl (80-96); MEAN PLT VOLUME 8.6 fl (7.5-11.1); NEUTROPHILS 64.4 % (42.8-82.8); PLATELET COUNT 272 K/MM3 (134-434); RDW 12.5 % (11.9-15.9); WHITE BLOOD COUNT 7.6 K/mm3 (4.0-10.0)
[2016-10-26 08:39] LABS: ALK PHOS 78 U/L (45-117); ANION GAP 12 (8-16); BILIRUBIN,TOTAL 0.5 mg/dL (0.2-1.0); CALCIUM 8.3 mg/dL (8.5-10.1); CO2 24 mmol/L (21-32); COCKROFT - GAULT 133.81; CREATININE 1.1 mg/dL (0.7-1.3); GLUCOSE,RANDOM 139 mg/dL (74-106); SGOT/AST 16 U/L (15-37); SGPT/ALT 20 U/L (12-78); TOT PROT 6.5 g/dl (6.4-8.2)
[2016-10-26] MEDS: LOSARTAN POTASSIUM 50 MG TABLET (FP) PO SCH (09:42)
[2016-10-26] MEDS: ASPIRIN 81 MG CHEWABLE TABLETS PO SCH (09:42)
[2016-10-26] MEDS: POLYETHYLENE GLYCOL 3350 119 GM BTL PO SCH (09:44)
[2016-10-26] MEDS: METOPROLOL SUCCINATE 50 MG TAB.SR.24H (FP) PO SCH (09:44)
[2016-10-26] MEDS: PANTOPRAZOLE 40 MG TABLET (FP) PO SCH (09:44)
[2016-10-26] MEDS: COLLAGENASE CLOSTRIDIUM HIST. 30 GRAMS TUBE TP SCH (10:49)
--- NOTE | 2016-10-26 13:39 | PN ---
Physical Exam: SUBJECTIVE: Patient seen and examined. Denies pain, discomfort, states he feels well. OBJECTIVE: patient anxious about how long he will be on antibiotics, has had PICC line before Appears well Left second toe wrapped in sterile dressing bun/creat stable off IVF Vital Signs Period Temp Pulse Resp BP Sys/Herron Pulse Ox Last 24 Hr 98.1 F-98.7 F 82-96 16-18 141-161/84-100 99 GENERAL: Awake, alert, and fully oriented, in no acute distress. HEAD: Normal with no signs of trauma. EYES: Pupils equal, round and reactive to light, extraocular movements intact, sclera anicteric, conjunctiva clear. No lid lag. EARS, NOSE, THROAT: Ears normal, nares patent, oropharynx clear without exudates. Moist mucous membranes. NECK: Normal range of motion, supple without lymphadenopathy, JVD, or masses. LUNGS: Breath sounds equal, clear to auscultation bilaterally. No wheezes, and no crackles. No accessory muscle use. HEART: Regular rate and rhythm ABDOMEN: Soft, nontender, not distended, normoactive bowel sounds, no guarding, no rebound, no masses. No hepatomegaly or splenomegaly. MUSCULOSKELETAL: Normal range of motion at all joints. No bony deformities or tenderness. No CVA tenderness. LOWER EXTREMITIES: +3 pitting edema of right leg>foot, +2 pitting edema of left leg >foot. +diabetic discolored ulceration on left second toe, amputation of right foot great toe. NEUROLOGICAL: Normal speech. Gait not observed. PSYCHIATRIC: Cooperative. Good eye contact. Appropriate mood and affect. Laboratory Results - last 24 hr 10/25/16 10/26/16 10/26/16 16:36 05:45 06:30 WBC 7.6 RBC 3.90 L Hgb 11.1 L Hct 33.3 L MCV 85.3 MCHC 33.4 RDW 12.5 Plt Count 272 MPV 8.6 Neutrophils % 64.4 Lymphocytes % 24.1 Monocytes % 8.9 Eosinophils % 1.8 Basophils % 0.8 Sodium Potassium Chloride Carbon Dioxide Anion Gap BUN Creatinine Creat Clearance w eGFR POC Glucometer 138 134 Random Glucose Calcium Total Bilirubin AST ALT Alkaline Phosphatase Total Protein Albumin 10/26/16 10/26/16 06:30 11:24 WBC RBC Hgb Hct MCV MCHC RDW Plt Count MPV Neutrophils % Lymphocytes % Monocytes % Eosinophils % Basophils % Sodium 141 Potassium 4.0 Chloride 105 Carbon Dioxide 24 Anion Gap 12 BUN 16 Creatinine 1.1 Creat Clearance w eGFR > 60 POC Glucometer 198 Random Glucose 139 H Calcium 8.3 L Total Bilirubin 0.5 AST 16 D ALT 20 Alkaline Phosphatase 78 Total Protein 6.5 Albumin 3.0 L Active Medications Generic Name Dose Route Start Last Admin Trade Name Mkq PRN Reason Stop Dose Admin Aspirin 81 mg 10/23/16 10:00 10/26/16 09:42 Asa - PO 81 mg DAILY GERARDO Administration Atorvastatin Calcium 40 mg 10/23/16 22:00 10/25/16 23:02 Lipitor - PO 40 mg HS GERARDO Administration Collagenase 1 applic 10/23/16 18:00 10/26/16 10:49 Santyl - TP 1 applic DAILY GERARDO Administration Heparin Sodium (Porcine) 5,000 unit 10/23/16 06:00 10/26/16 06:09 Heparin - SQ 5,000 unit TID GERARDO Administration Ampicillin Sodium/Sulbactam 100 mls @ 200 mls/hr 10/23/16 10:00 10/26/16 09:44 Sodium 3 gm/ Sodium Chloride IVPB 200 mls/hr Q8H-IV GERARDO Administration Insulin Aspart 1 vial 10/23/16 07:00 10/26/16 11:27 Novolog Vial Sliding Scale - SQ 2 units TIDAC GERARDO Administration Protocol Losartan Potassium 50 mg 10/23/16 10:00 10/26/16 09:42 Cozaar - PO 50 mg DAILY GERARDO Administration Metoprolol Succinate 50 mg 10/25/16 08:30 10/26/16 09:44 Toprol Xl - PO 50 mg DAILY GERARDO Administration Pantoprazole Sodium 40 mg 10/24/16 10:00 10/26/16 09:44 Protonix - PO 40 mg DAILY GERARDO Administration Polyethylene Glycol 17 gm 10/26/16 10:00 10/26/16 09:44 Miralax (For Daily Use) - PO 17 gm DAILY GERARDO Administration ASSESSMENT/PLAN: Patient is a 61 year old male with a significant medical history of hypertension , hyperlipidemia, diabetes and right great toe amputation. 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 Patient reports having diabetic ulcer's in the past, with amputation of his right great toe. Patient denies fever, chills or shortness of breath. Imaging: Vascular studty: DVT of bilateral lower ext. negative ID: Left second diabetic toe ulceration and cellulitis, +slough Assessment/Plan: Left foot 2nd toe with discoloration, anterior toe diabetic ulcer, on Santyl BID Amputated great toe of the right foot Started on Unasyn by ID on 10/23 WBC within normal limits, remains afebrile Negative for DVT of bilateral lower extremities Director [employer] consulted and saw patient Vascular following for possible CTA/angio Cardiology: Hypertension - chronic Assessment/Plan: Elevated BP On Cozaar 50mg daily, Metoprolol increased [id number] to 50mg daily Monitor BP, IVF discontinued Hyperlipidemia Assessment/Plan: On Lipitor Endocrine: Diabetes Mellitus Assessment/Plan: Novolog sliding scale HmgA1c 8.6 Renal: CHARLES - Creat 1.1 @ baseline Assessment/Plan: d/c ivf secondary to hypertension Renal function stable F.E.N. Fluids: tolerating PO Electrolytes: monitor lytes Nutrition: diabetic diet Prophylaxis: DVT Prophy: Heparin BID GI: Protonix 40mg daily Dispositon: Requires inpatient hospitalization. Full Code. Visit type - Emergency Visit Emergency Visit: Yes ED Registration Date: 10/22/16 Care time: The patient presented to the Emergency Department on the above date and was hospitalized for further evaluation of their emergent condition. - New Patient This patient is new to me today: No - Critical Care Critical Care patient: No - Discharge Referral Referred to [facility] Med P.C.: No
--- NOTE | 2016-10-26 15:51 | PN ---
Progress Note, Physician History of Present Illness: stable no new issue podiatry note noted - Current Medication List Current Medications: Active Medications Aspirin (Asa -) 81 mg PO DAILY [facility] Last Admin: 10/26/16 09:42 Dose: 81 mg Atorvastatin Calcium (Lipitor -) 40 mg PO HS [facility] Last Admin: 10/25/16 23:02 Dose: 40 mg Collagenase (Santyl -) 1 applic TP DAILY [facility] Last Admin: 10/26/16 10:49 Dose: 1 applic Heparin Sodium (Porcine) (Heparin -) 5,000 unit SQ TID [facility] Last Admin: 10/26/16 13:47 Dose: 5,000 unit Ampicillin Sodium/Sulbactam (Sodium 3 gm/ Sodium Chloride) 100 mls @ 200 mls/ hr IVPB Q8H-IV [facility] Last Admin: 10/26/16 09:44 Dose: 200 mls/hr Insulin Aspart (Novolog Vial Sliding Scale -) 1 vial SQ TIDAC [facility] PRN Reason: Protocol Last Admin: 10/26/16 11:27 Dose: 2 units Losartan Potassium (Cozaar -) 50 mg PO DAILY [facility] Last Admin: 10/26/16 09:42 Dose: 50 mg Metoprolol Succinate (Toprol Xl -) 50 mg PO DAILY [facility] Last Admin: 10/26/16 09:44 Dose: 50 mg Pantoprazole Sodium (Protonix -) 40 mg PO DAILY [facility] Last Admin: 10/26/16 09:44 Dose: 40 mg Polyethylene Glycol (Miralax (For Daily Use) -) 17 gm PO DAILY [facility] Last Admin: 10/26/16 09:44 Dose: 17 gm - Objective Vital Signs: Vital Signs Temperature 98.3 F 10/26/16 14:00 Pulse Rate 83 10/26/16 14:00 Respiratory Rate 18 10/26/16 14:00 Blood Pressure 149/88 10/26/16 14:00 O2 Sat by Pulse Oximetry (%) 99 10/25/16 21:00 Constitutional: Yes: No Distress, Calm HENT: Yes: Atraumatic Cardiovascular: Yes: Regular Rate and Rhythm Respiratory: Yes: Regular, CTA Bilaterally Gastrointestinal: Yes: Normal Bowel Sounds, Soft Musculoskeletal: Yes: Other Extremities: Yes: Other Integumentary: Yes: Venous Stasis Changes, Other Wound/Incision: Yes: Open to air, Other Neurological: Yes: Alert, Oriented Psychiatric: Yes: Alert, Oriented Labs: CBC, BMP 10/26/16 06:30 10/26/16 06:30 Assessment/Plan Diabetic Ulcer Left 2nd Toe HTN/HLD : Diabetes Mellitus OA obesity pvd plan final plan awaited agree with the plan will change to oral tomorrow rest as per primary
[2016-10-26] MEDS: ATORVASTATIN CA 40 MG TABLET (FP) PO SCH (21:24)
[2016-10-27] MEDS ORDERED: PT OWN MED DRAWER 7, Y5N ONE ×3 (01:41→17:23)
[2016-10-27] MEDS: AMPICILLIN NA/SULBACTAM NA 3 GM in SODIUM CHLORIDE 100 ML IVPB SCH ×3 (01:48→18:38)
[2016-10-27] MEDS: INSULIN SLIDING SCALE (NOVOLOG) 1 VIAL SQ SCH ×3 (06:25→17:34)
[2016-10-27] MEDS: HEPARIN NA (PORCINE) 5,000 UNITS/ML 1ML VIAL SQ SCH ×2 (06:25→14:21)
[2016-10-27 08:23] LABS: BASOPHIL 0.7 % (0-2.0); EOSINOPHIL 1.6 % (0-4.5); MCH 28.3 pg (25.7-33.7); MCHC 32.7 g/dl (32.0-35.9); MEAN CELL VOLUME 86.5 fl (80-96); MEAN PLT VOLUME 8.7 fl (7.5-11.1); NEUTROPHILS 68.1 % (42.8-82.8); PLATELET COUNT 278 K/MM3 (134-434); RDW 12.8 % (11.9-15.9); WHITE BLOOD COUNT 7.8 K/mm3 (4.0-10.0)
[2016-10-27 08:50] LABS: ALBUMIN 3.1 g/dl (3.4-5.0); ALK PHOS 82 U/L (45-117); ANION GAP 10 (8-16); BILIRUBIN,TOTAL 0.6 mg/dL (0.2-1.0); CALCIUM 8.5 mg/dL (8.5-10.1); CO2 24 mmol/L (21-32); COCKROFT - GAULT 122.66; CREATININE 1.2 mg/dL (0.7-1.3); GLUCOSE,RANDOM 140 mg/dL (74-106); SGOT/AST 18 U/L (15-37); SGPT/ALT 23 U/L (12-78); TOT PROT 6.6 g/dl (6.4-8.2)
--- NOTE | 2016-10-27 08:54 | PN ---
Progress Note (short form) - Note Progress Note: Vascular Surgery Pt seen and examined. Cr now 1.1 Will do left lower ext angiogram, angioplasty ang at 11am. NPO past midnight Esa jones DO
--- NOTE | 2016-10-27 09:06 | PN ---
Progress Note, Physician History of Present Illness: stable no new issues plan for angio tomorrow - Current Medication List Current Medications: Active Medications Aspirin (Asa -) 81 mg PO DAILY [facility] Last Admin: 10/26/16 09:42 Dose: 81 mg Atorvastatin Calcium (Lipitor -) 40 mg PO HS [facility] Last Admin: 10/26/16 21:24 Dose: 40 mg Collagenase (Santyl -) 1 applic TP DAILY [facility] Last Admin: 10/26/16 10:49 Dose: 1 applic Heparin Sodium (Porcine) (Heparin -) 5,000 unit SQ TID [facility] Last Admin: 10/27/16 06:25 Dose: 5,000 unit Ampicillin Sodium/Sulbactam (Sodium 3 gm/ Sodium Chloride) 100 mls @ 200 mls/ hr IVPB Q8H-IV [facility] Last Admin: 10/27/16 01:48 Dose: 200 mls/hr Insulin Aspart (Novolog Vial Sliding Scale -) 1 vial SQ TIDAC [facility] PRN Reason: Protocol Last Admin: 10/27/16 06:25 Dose: Not Given Losartan Potassium (Cozaar -) 50 mg PO DAILY [facility] Last Admin: 10/26/16 09:42 Dose: 50 mg Metoprolol Succinate (Toprol Xl -) 50 mg PO DAILY [facility] Last Admin: 10/26/16 09:44 Dose: 50 mg Pantoprazole Sodium (Protonix -) 40 mg PO DAILY [facility] Last Admin: 10/26/16 09:44 Dose: 40 mg Polyethylene Glycol (Miralax (For Daily Use) -) 17 gm PO DAILY [facility] Last Admin: 10/26/16 09:44 Dose: 17 gm - Objective Vital Signs: Vital Signs Temperature 97.9 F 10/27/16 05:00 Pulse Rate 83 10/27/16 05:00 Respiratory Rate 18 10/27/16 05:00 Blood Pressure 165/96 10/27/16 05:00 O2 Sat by Pulse Oximetry (%) 99 10/26/16 21:00 Constitutional: Yes: No Distress, Calm Cardiovascular: Yes: Regular Rate and Rhythm Respiratory: Yes: Regular, CTA Bilaterally Gastrointestinal: Yes: Normal Bowel Sounds, Soft Musculoskeletal: Yes: Other Extremities: Yes: Other Edema: LLE: 1+, RLE: 1+ Peripheral Pulses: Left Doralis Pedis: 0, Right Dorsalis Pedis: 0 Wound/Incision: Yes: Dressing Dry and Intact Neurological: Yes: Alert, Oriented Psychiatric: Yes: Alert, Oriented Labs: CBC, BMP 10/27/16 06:30 10/27/16 06:30 Assessment/Plan Diabetic Ulcer Left 2nd Toe HTN/HLD : Diabetes Mellitus OA obesity pvd plan patient for OR tomorrow continue current mgmt post OR will switch to oral abx rest as per primary team
[2016-10-27] MEDS: ASPIRIN 81 MG CHEWABLE TABLETS PO SCH (09:28)
[2016-10-27] MEDS: LOSARTAN POTASSIUM 50 MG TABLET (FP) PO SCH (09:28)
[2016-10-27] MEDS: POLYETHYLENE GLYCOL 3350 119 GM BTL PO SCH (09:29)
[2016-10-27] MEDS: PANTOPRAZOLE 40 MG TABLET (FP) PO SCH (09:30)
[2016-10-27] MEDS: METOPROLOL SUCCINATE 50 MG TAB.SR.24H (FP) PO SCH (09:30)
[2016-10-27] MEDS: COLLAGENASE CLOSTRIDIUM HIST. 30 GRAMS TUBE TP SCH (11:28)
--- NOTE | 2016-10-27 14:34 | PN ---
Physical Exam: SUBJECTIVE: Patient seen and examined. He denies any pain or shortness of breath. OBJECTIVE: For an angiogram/angioplasty with Dr. Mead tomorrow. Creatinine stable Heparin to be held tonight for anticipated procedure Will gently hydrate overnight while NPO Vital Signs Period Temp Pulse Resp BP Sys/Herron Pulse Ox Last 24 Hr 97.3 F-99.4 F 77-100 18-20 134-165/76-111 99 GENERAL: Awake, alert, and fully oriented, in no acute distress. HEAD: Normal with no signs of trauma. EYES: Pupils equal, round and reactive to light, extraocular movements intact, sclera anicteric, conjunctiva clear. No lid lag. EARS, NOSE, THROAT: Ears normal, nares patent, oropharynx clear without exudates. Moist mucous membranes. NECK: Normal range of motion, supple without lymphadenopathy, JVD, or masses. LUNGS: Breath sounds equal, clear to auscultation bilaterally. No wheezes, and no crackles. No accessory muscle use. HEART: Regular rate and rhythm ABDOMEN: Soft, nontender, not distended, normoactive bowel sounds, no guarding, no rebound, no masses. No hepatomegaly or splenomegaly. MUSCULOSKELETAL: Normal range of motion at all joints. No bony deformities or tenderness. No CVA tenderness. LOWER EXTREMITIES: +3 pitting edema of right leg>foot, +2 pitting edema of left leg >foot. +diabetic discolored ulceration on left second toe, amputation of right foot great toe. NEUROLOGICAL: Normal speech. Gait not observed. PSYCHIATRIC: Cooperative. Good eye contact. Appropriate mood and affect. Laboratory Results - last 24 hr 10/26/16 10/27/16 10/27/16 17:35 05:58 06:30 WBC 7.8 RBC 3.95 L Hgb 11.2 L Hct 34.2 L MCV 86.5 MCHC 32.7 RDW 12.8 Plt Count 278 MPV 8.7 Neutrophils % 68.1 Lymphocytes % 20.7 Monocytes % 8.9 Eosinophils % 1.6 Basophils % 0.7 Sodium Potassium Chloride Carbon Dioxide Anion Gap BUN Creatinine Creat Clearance w eGFR POC Glucometer 150 140 Random Glucose Calcium Total Bilirubin AST ALT Alkaline Phosphatase Total Protein Albumin 10/27/16 10/27/16 06:30 11:25 WBC RBC Hgb Hct MCV MCHC RDW Plt Count MPV Neutrophils % Lymphocytes % Monocytes % Eosinophils % Basophils % Sodium 139 Potassium 4.1 Chloride 105 Carbon Dioxide 24 Anion Gap 10 BUN 15 Creatinine 1.2 Creat Clearance w eGFR > 60 POC Glucometer 185 Random Glucose 140 H Calcium 8.5 Total Bilirubin 0.6 AST 18 ALT 23 Alkaline Phosphatase 82 Total Protein 6.6 Albumin 3.1 L Active Medications Generic Name Dose Route Start Last Admin Trade Name Mkq PRN Reason Stop Dose Admin Aspirin 81 mg 10/23/16 10:00 10/27/16 09:28 Asa - PO 81 mg DAILY [facility] Administration Atorvastatin Calcium 40 mg 10/23/16 22:00 10/26/16 21:24 Lipitor - PO 40 mg HS G[facility]O Administration Collagenase 1 applic 10/23/16 18:00 10/27/16 11:28 Santyl - TP 1 applic DAILY [facility] Administration Heparin Sodium (Porcine) 5,000 unit 10/23/16 06:00 10/27/16 14:21 Heparin - SQ 10/28/16 00:00 5,000 unit TID G[facility]O Administration Ampicillin Sodium/Sulbactam 100 mls @ 200 mls/hr 10/23/16 10:00 10/27/16 09:30 Sodium 3 gm/ Sodium Chloride IVPB 200 mls/hr Q8H-IV [facility] Administration Insulin Aspart 1 vial 10/23/16 07:00 10/27/16 11:28 Novolog Vial Sliding Scale - SQ 2 units TIDAC G[facility]O Administration Protocol Losartan Potassium 50 mg 10/23/16 10:00 10/27/16 09:28 Cozaar - PO 50 mg DAILY [facility] Administration Metoprolol Succinate 50 mg 10/25/16 08:30 10/27/16 09:30 Toprol Xl - PO 50 mg DAILY [facility]O Administration Pantoprazole Sodium 40 mg 10/24/16 10:00 10/27/16 09:30 Protonix - PO 40 mg DAILY [facility] Administration Polyethylene Glycol 17 gm 10/26/16 10:00 10/27/16 09:29 Miralax (For Daily Use) - PO 17 gm DAILY [facility] Administration ASSESSMENT/PLAN: Patient is a 61 year old male with a significant medical history of hypertension , hyperlipidemia, diabetes and right great toe amputation. He was sent from his [facility] office for admission for antibiotics for a left second toe ulcer and discoloration. Patient reports having diabetic ulcer's in the past, with amputation of his right great toe. Patient denies fever, chills or shortness of breath. Imaging: Vascular studty: DVT of bilateral lower ext. negative ID: Left second diabetic toe ulceration and cellulitis, +slough Assessment/Plan: Left foot 2nd toe with discoloration, anterior toe diabetic ulcer, on Santyl BID Amputated great toe of the right foot Started on Unasyn by ID on 10/23 WBC within normal limits, remains afebrile Negative for DVT of bilateral lower extremities Film Color Tester consulted and saw patient Vascular will proceed with angio in a.m. NPO @ midnight, please give cardiac meds with a sip of water in a.m. prior to procedure. Heparin held tonight Gentle hydration with NS @42cc/hr Cardiology: Hypertension - chronic Assessment/Plan: On Cozaar 50mg daily, Metoprolol increased from 25mg to 50mg daily Monitor BP Hyperlipidemia Assessment/Plan: On Lipitor Endocrine: Diabetes Mellitus Assessment/Plan: Novolog sliding scale HmgA1c 8.6 Renal: CHARLES - Creat 1.2 @ baseline Assessment/Plan: Renal function stable Will gently hydrate overnight F.E.N. Fluids: NS @ 42cc/hr Electrolytes: monitor lytes Nutrition: NPO @ midnight, otherwise; diabetic diet Prophylaxis: DVT Prophy: Heparin on hold for tonight, scds bilaterally GI: Protonix 40mg daily Dispositon: Requires inpatient hospitalization. Full Code. Visit type - Emergency Visit Emergency Visit: Yes ED Registration Date: 10/22/16 Care time: The patient presented to the Emergency Department on the above date and was hospitalized for further evaluation of their emergent condition. - New Patient This patient is new to me today: No - Critical Care Critical Care patient: No - Discharge Referral Referred to [facility] No
[2016-10-27] MEDS ORDERED: SODIUM CHLORIDE 1,000 ML IV SCH (14:45)
[2016-10-27] MEDS: ATORVASTATIN CA 40 MG TABLET (FP) PO SCH (21:53)
[2016-10-28] MEDS: AMPICILLIN NA/SULBACTAM NA 3 GM in SODIUM CHLORIDE 100 ML IVPB SCH ×3 (01:55→17:08)
[2016-10-28] MEDS: INSULIN SLIDING SCALE (NOVOLOG) 1 VIAL SQ SCH ×3 (06:51→21:19)
[2016-10-28 07:58] LABS: EOSINOPHIL 2.1 % (0-4.5); MCH 28.5 pg (25.7-33.7); MCHC 33.4 g/dl (32.0-35.9); MEAN CELL VOLUME 85.5 fl (80-96); MEAN PLT VOLUME 8.6 fl (7.5-11.1); PLATELET COUNT 285 K/MM3 (134-434); WHITE BLOOD COUNT 7.1 K/mm3 (4.0-10.0)
[2016-10-28] MEDS ORDERED: PT OWN MED DRAWER 7, Y5N ONE ×2 (09:12→16:40)
[2016-10-28] MEDS: METOPROLOL SUCCINATE 50 MG TAB.SR.24H (FP) PO SCH (09:14)
[2016-10-28] MEDS: ASPIRIN 81 MG CHEWABLE TABLETS PO SCH (09:14)
[2016-10-28] MEDS: LOSARTAN POTASSIUM 50 MG TABLET (FP) PO SCH (09:14)
[2016-10-28] MEDS: PANTOPRAZOLE 40 MG TABLET (FP) PO SCH (09:14)
[2016-10-28] MEDS: POLYETHYLENE GLYCOL 3350 119 GM BTL PO SCH (09:15)
[2016-10-28] MEDS: COLLAGENASE CLOSTRIDIUM HIST. 30 GRAMS TUBE TP SCH (09:16)
[2016-10-28 09:17] LABS: ALBUMIN 3.4 g/dl (3.4-5.0); ALK PHOS 98 U/L (45-117); ANION GAP 11 (8-16); BILIRUBIN,TOTAL 0.6 mg/dL (0.2-1.0); CO2 24 mmol/L (21-32); COCKROFT - GAULT 122.66; CREATININE 1.2 mg/dL (0.7-1.3); GLUCOSE,RANDOM 137 mg/dL (74-106); SGOT/AST 22 U/L (15-37); SGPT/ALT 31 U/L (12-78); TOT PROT 7.3 g/dl (6.4-8.2)
--- NOTE | 2016-10-28 10:28 | PN ---
Physical Exam: SUBJECTIVE: Patient seen and examined. He has no acute complaints, he is feeling tired. He is waiting for his procedure. OBJECTIVE: Vital Signs Period Temp Pulse Resp BP Sys/Herron Pulse Ox Last 24 Hr 98.0 F-98.9 F 74-100 18-20 134-152/79-97 99 PE Neuro: alert, awake, cn 2-12intact Pulm: CTAB CV: s1 s2 rrr no mrg Abd: s nt nd +bs Ext: + 3 pitting edema bilaterally, R great toe amputation, L second toe ulcer, dressing CDI CBCD WBC 7.1 K/mm3 (4.0-10.0) 10/28/16 06:00 RBC 4.03 M/mm3 (4.00-5.60) 10/28/16 06:00 Hgb 11.5 GM/dL (11.7-16.9) L 10/28/16 06:00 Hct 34.5 % (35.4-49) L 10/28/16 06:00 MCV 85.5 fl (80-96) 10/28/16 06:00 MCHC 33.4 g/dl (32.0-35.9) 10/28/16 06:00 RDW 13.0 % (11.9-15.9) 10/28/16 06:00 Plt Count 285 K/MM3 (134-434) 10/28/16 06:00 MPV 8.6 fl (7.5-11.1) 10/28/16 06:00 CMP Sodium 139 mmol/L (136-145) 10/28/16 06:00 Potassium 4.2 mmol/L (3.5-5.1) 10/28/16 06:00 Chloride 104 mmol/L (98-107) 10/28/16 06:00 Carbon Dioxide 24 mmol/L (21-32) 10/28/16 06:00 Anion Gap 11 (8-16) 10/28/16 06:00 BUN 15 mg/dL (7-18) 10/28/16 06:00 Creatinine 1.2 mg/dL (0.7-1.3) 10/28/16 06:00 Creat Clearance w eGFR > 60 (>60) 10/28/16 06:00 Calcium 9.0 mg/dL (8.5-10.1) 10/28/16 06:00 Total Bilirubin 0.6 mg/dL (0.2-1.0) 10/28/16 06:00 AST 22 U/L (15-37) D 10/28/16 06:00 ALT 31 U/L (12-78) D 10/28/16 06:00 Alkaline Phosphatase 98 U/L (45-117) 10/28/16 06:00 Total Protein 7.3 g/dl (6.4-8.2) 10/28/16 06:00 Albumin 3.4 g/dl (3.4-5.0) 10/28/16 06:00 10/25/16 07:00 Hemoglobin A1c % 8.6 H D Active Medications Generic Name Dose Route Start Last Admin Trade Name Freq PRN Reason Stop Dose Admin Aspirin 81 mg 10/23/16 10:00 10/28/16 09:14 Asa - PO 81 mg DAILY [facility] Administration Atorvastatin Calcium 40 mg 10/23/16 22:00 10/27/16 21:53 Lipitor - PO 40 mg HS G[facility]ARDO Administration Collagenase 1 applic 10/23/16 18:00 10/28/16 09:16 Santyl - TP 1 applic DAILY [facility] Administration Ampicillin Sodium/Sulbactam 100 mls @ 200 mls/hr 10/23/16 10:00 10/28/16 10:04 Sodium 3 gm/ Sodium Chloride IVPB 200 mls/hr Q8H-IV [facility] Administration Sodium Chloride 1,000 mls @ 42 mls/hr 10/27/16 14:45 10/27/16 15:34 Normal Saline - IV 42 mls/hr ASDIR GERARDO Administration Insulin Aspart 1 vial 10/23/16 07:00 10/28/16 06:51 Novolog Vial Sliding Scale - SQ Not Given TIDAC G[facility]O Protocol Losartan Potassium 50 mg 10/23/16 10:00 10/28/16 09:14 Cozaar - PO 50 mg DAILY GERARDO Administration Metoprolol Succinate 50 mg 10/25/16 08:30 10/28/16 09:14 Toprol Xl - PO 50 mg DAILY G[facility]ARDO Administration Pantoprazole Sodium 40 mg 10/24/16 10:00 10/28/16 09:14 Protonix - PO 40 mg DAILY G[facility]O Administration Polyethylene Glycol 17 gm 10/26/16 10:00 10/28/16 09:15 Miralax (For Daily Use) - PO Not Given DAILY [facility]O Assessment: 61 year old male with HTN, HLD, DM II, Right great toe amputation, admitted from [facility] for left second toe ulceration. Plan: 1. Left second toe diabetic ulceration/cellulitis - For angiogram/angioplasty today - Continue Ampicillin q8 (10/23-) - Santyl daily - ID to transition to PO following surgical procedure 2. HTN - Currently controlled - Cozaar 50mg daily - ASA daily - Continue increased dose Metoprolol 50mg daily 3. HLD - Lipitor 40mg HS 4. DM II - Levemir 6units BID - ISS, BGM ACHS - Hold PO metformin 5. PPX - DVT: hold heparin for angio - GI: stop protonix Visit type - Emergency Visit Emergency Visit: Yes ED Registration Date: 10/22/16 Care time: The patient presented to the Emergency Department on the above date and was hospitalized for further evaluation of their emergent condition. - New Patient This patient is new to me today: Yes Date on this admission: 10/28/16 - Critical Care Critical Care patient: No
[2016-10-28] MEDS ORDERED: HEPARIN NA (PORCINE) 5,000 UNITS/ML 1ML VIAL ONE (10:37)
[2016-10-28] MEDS ORDERED: LIDOCAINE HCL 1%, 10 MG/ML (20ML VIAL) ONE (10:37)
[2016-10-28] MEDS ORDERED: INSULIN SLIDING SCALE (NOVOLOG) 1 VIAL SQ SCH (11:00)
[2016-10-28] MEDS ORDERED: MIDAZOLAM HCL 2 MG/2 ML SINGLE DOSE VIAL ONE (11:32)
[2016-10-28] MEDS ORDERED: PROPOFOL 20 ML ONE ×4 (11:32→13:06)
[2016-10-28] MEDS ORDERED: ceFAZolin SODIUM 1 GM VIAL IVPB ONE (11:45)
[2016-10-28] MEDS ORDERED: LIDOCAINE HCL 1%, 10 MG/ML (20ML VIAL) IJ ONE (12:00)
--- NOTE | 2016-10-28 12:02 | PN ---
Progress Note, Physician History of Present Illness: stable no new issues patient going for angiogram angioplasty - Current Medication List Current Medications: Active Medications Aspirin (Asa -) 81 mg PO DAILY [facility] Last Admin: 10/28/16 09:14 Dose: 81 mg Atorvastatin Calcium (Lipitor -) 40 mg PO HS [facility] Last Admin: 10/27/16 21:53 Dose: 40 mg Collagenase (Santyl -) 1 applic TP DAILY [facility] Last Admin: 10/28/16 09:16 Dose: 1 applic Ampicillin Sodium/Sulbactam (Sodium 3 gm/ Sodium Chloride) 100 mls @ 200 mls/ hr IVPB Q8H-IV [facility] Last Admin: 10/28/16 10:04 Dose: 200 mls/hr Sodium Chloride (Normal Saline -) 1,000 mls @ 42 mls/hr IV [facility] Last Admin: 10/27/16 15:34 Dose: 42 mls/hr Insulin Aspart (Novolog Vial Sliding Scale -) 1 vial SQ ACHS [facility] PRN Reason: Protocol Insulin Detemir (Levemir Vial) 6 units SQ BID@0700,2200 [facility] Losartan Potassium (Cozaar -) 50 mg PO DAILY [facility] Last Admin: 10/28/16 09:14 Dose: 50 mg Metoprolol Succinate (Toprol Xl -) 50 mg PO DAILY [facility] Last Admin: 10/28/16 09:14 Dose: 50 mg Polyethylene Glycol (Miralax (For Daily Use) -) 17 gm PO DAILY [facility] Last Admin: 10/28/16 09:15 Dose: Not Given - Objective Vital Signs: Vital Signs Temperature 98.9 F 10/28/16 07:08 Pulse Rate 82 10/28/16 07:08 Respiratory Rate 20 10/28/16 07:08 Blood Pressure 152/97 10/28/16 07:08 O2 Sat by Pulse Oximetry (%) 99 10/27/16 21:00 Constitutional: Yes: No Distress, Calm Cardiovascular: Yes: Regular Rate and Rhythm Respiratory: Yes: Regular, CTA Bilaterally Gastrointestinal: Yes: Normal Bowel Sounds, Soft Musculoskeletal: Yes: Other Extremities: Yes: Other Wound/Incision: Yes: Other (healing) Neurological: Yes: Alert, Oriented Psychiatric: Yes: Alert, Oriented Labs: CBC, BMP 10/28/16 06:00 10/28/16 06:00 Assessment/Plan Diabetic Ulcer Left 2nd Toe HTN/HLD : Diabetes Mellitus OA obesity pvd plan continue abx await for final plan after angio findings
[2016-10-28] MEDS ORDERED: ceFAZolin SODIUM 1 GM VIAL ONE (12:21)
[2016-10-28] MEDS ORDERED: ONDANSETRON 4 MG/2 ML VIAL IVPUSH PRN ×2 (13:44→13:55)
[2016-10-28] MEDS ORDERED: LACTATED RINGERS SOLUTION 1,000 ML IV SCH ×2 (13:45→13:55)
--- NOTE | 2016-10-28 13:46 | OP ---
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
[2016-10-28] MEDS ORDERED: PIPERACILLIN/TAZOB 3.375 GM/50 ML PRE-DOCKED IVPB ONE (13:55)
[2016-10-28] MEDS: SODIUM CHLORIDE 1,000 ML IV SCH (16:13)
[2016-10-28] MEDS: CLOPIDOGREL BISULFATE 75 MG TABLET (FP) PO SCH (17:08)
[2016-10-28] MEDS ORDERED: LABETALOL HCL 5 MG/1 ML (100MG/20 ML VIAL) IVPUSH ONE (17:12)
[2016-10-28] MEDS: INSULIN DETEMIR 100 UNITS/ML MDV SQ SCH (21:18)
[2016-10-28] MEDS: HEPARIN NA (PORCINE) 5,000 UNITS/ML 1ML VIAL SQ SCH (21:19)
[2016-10-28] MEDS ORDERED: INSULIN DETEMIR 100 UNITS/ML MDV SQ SCH (22:00)
[2016-10-28] MEDS ORDERED: ATORVASTATIN CA 40 MG TABLET (FP) PO SCH (22:00)
[2016-10-29] MEDS: AMPICILLIN NA/SULBACTAM NA 3 GM in SODIUM CHLORIDE 100 ML IVPB SCH ×2 (01:43→09:12)
[2016-10-29] MEDS: INSULIN DETEMIR 100 UNITS/ML MDV SQ SCH (06:25)
[2016-10-29] MEDS: INSULIN SLIDING SCALE (NOVOLOG) 1 VIAL SQ SCH ×2 (06:25→11:32)
[2016-10-29] MEDS: HEPARIN NA (PORCINE) 5,000 UNITS/ML 1ML VIAL SQ SCH ×2 (06:25→14:10)
[2016-10-29 08:30] LABS: CALCIUM 8.4 mg/dL (8.5-10.1)
[2016-10-29 08:33] LABS: COCKROFT - GAULT 133.81; CREATININE 1.1 mg/dL (0.7-1.3)
[2016-10-29] MEDS ORDERED: INSULIN (NOVOLOG) ASPART 100 UNITS/ML 10ML VIAL ONE (08:53)
[2016-10-29] MEDS ORDERED: INSULIN (NOVOLOG MIX 70/30) 100 UNITS/ML MDV SQ ONE (08:54)
[2016-10-29] MEDS ORDERED: INSULIN DETEMIR 100 UNITS/ML MDV SQ ONE (08:54)
[2016-10-29] MEDS: CLOPIDOGREL BISULFATE 75 MG TABLET (FP) PO SCH (09:13)
[2016-10-29] MEDS: COLLAGENASE CLOSTRIDIUM HIST. 30 GRAMS TUBE TP SCH (09:14)
[2016-10-29] MEDS ORDERED: COLLAGENASE CLOSTRIDIUM HIST. 30 GRAMS TUBE TP SCH (10:00)
[2016-10-29] MEDS ORDERED: POLYETHYLENE GLYCOL 3350 119 GM BTL PO SCH (10:00)
[2016-10-29] MEDS ORDERED: METOPROLOL SUCCINATE 50 MG TAB.SR.24H (FP) PO SCH (10:00)
[2016-10-29] MEDS ORDERED: ASPIRIN 81 MG CHEWABLE TABLETS PO SCH (10:00)
[2016-10-29] MEDS ORDERED: LOSARTAN POTASSIUM 50 MG TABLET (FP) PO SCH (10:00)
--- NOTE | 2016-10-29 14:28 | DS ---
Physical Exam: SUBJECTIVE: Patient seen and examined OBJECTIVE: Vital Signs Period Temp Pulse Resp BP Sys/Herron Pulse Ox Last 24 Hr 97.8 F-99 F 68-81 14-20 128-179/60-101 100-100 PHYSICAL EXAM GENERAL: The patient is awake, alert, and fully oriented, in no acute distress. HEAD: Normal with no signs of trauma. EYES: PERRL, extraocular movements intact, sclera anicteric, conjunctiva clear. ENT: Ears normal, nares patent, oropharynx clear without exudates, moist mucous membranes. NECK: Trachea midline, full range of motion, supple. LUNGS: Breath sounds equal, clear to auscultation bilaterally, no wheezes, no crackles, no accessory muscle use. HEART: Regular rate and rhythm, S1, S2 without murmur, rub or gallop. ABDOMEN: Soft, nontender, nondistended, normoactive bowel sounds, no guarding, no rebound, no hepatosplenomegaly, no masses. EXTREMITIES: 2+ pulses, warm, well-perfused, no edema. NEUROLOGICAL: Cranial nerves II through XII grossly intact. Normal speech, gait not observed. PSYCH: Normal mood, normal affect. SKIN: Warm, dry, normal turgor, no rashes or lesions noted. LABS Laboratory Results - last 24 hr 10/28/16 10/28/16 10/28/16 15:02 17:11 21:18 Sodium Potassium Chloride Carbon Dioxide Anion Gap BUN Creatinine POC Glucometer 133 200 217 Random Glucose Calcium 10/29/16 10/29/16 06:24 07:00 Sodium 141 Potassium 3.9 Chloride 106 Carbon Dioxide 23 Anion Gap 12 BUN 16 Creatinine 1.1 POC Glucometer 141 Random Glucose 134 H Calcium 8.4 L HOSPITAL COURSE: Date of Admission:10/22/16 Date of Discharge: 10/29/16 Minutes to complete discharge: 35 Discharge Summary Reason For Visit: CELLULITIS Current Active Problems Cellulitis (Acute) DVT prophylaxis (Acute) Foot ulcer (Acute) HLD (hyperlipidemia) (Acute) Condition: Stable - Instructions Diet, Activity, Other Instructions: Please return to the ED for any new, persistent, or worsening symptoms. Follow up with your PCP in 1 week Follow up with Dr. Mead November 05 @ 1:30pm Resume home medications as directed on home discharge list New medication: Plavix 75mg daily Increase in metoprolol xl dose: 50mg daily Take antibiotics as directed and until completed Referrals: Zac Encarnacion [Primary Care Provider] - Esa Mead MD [Staff Physician] - Disposition: HOME - Home Medications Comprehensive Discharge Medication List: Ambulatory Orders Insulin (Levemir) [Levemir Flexpen -] 6 units SQ BID 01/23/14 Aspirin [ASA -] 81 mg PO DAILY 10/22/16 Atorvastatin Ca [Lipitor] 40 mg PO HS 10/22/16 Hydrochlorothiazide [Hctz -] 25 mg PO DAILY 10/22/16 Losartan Potassium 50 mg PO DAILY 10/22/16 Metformin HCl [Glucophage] 1,000 mg PO BID 10/22/16 Clopidogrel Bisulfate [Plavix -] 75 mg PO DAILY #30 tablet 10/29/16 Collagenase Clostridium Hist. [Santyl -] 1 applic TP DAILY #1 tube 10/29/16 Metoprolol Succinate [Toprol XL -] 50 mg PO DAILY #30 tab 10/29/16 - Discharge Referral Referred to [facility] No
[2016-10-29 14:31] VITALS: BP 138/70; PULSE 80; TEMP 98.2
--- NOTE | 2016-10-29 15:01 | PN ---
Progress Note, Physician History of Present Illness: patient had angio done by vascular patient going to follow up with vascular patient is refusing any more work up says he knows it all and god will decide further he thinks his infection is not that bad and does not need anything special wound is looking better - Current Medication List Current Medications: Active Medications Aspirin (Asa -) 81 mg PO DAILY [facility] Last Admin: 10/29/16 09:12 Dose: 81 mg Atorvastatin Calcium (Lipitor -) 40 mg PO HS [facility] Last Admin: 10/28/16 21:19 Dose: 40 mg Clopidogrel Bisulfate (Plavix -) 75 mg PO DAILY [facility] Last Admin: 10/29/16 09:13 Dose: 75 mg Collagenase (Santyl -) 1 applic TP DAILY [facility] Last Admin: 10/29/16 09:14 Dose: 1 applic Fentanyl (Sublimaze Injection -) 25 mcg IVPUSH [id number] PRN PRN Reason: PAIN Stop: 10/31/16 13:45 Heparin Sodium (Porcine) (Heparin -) 5,000 unit SQ TID [facility] Last Admin: 10/29/16 06:25 Dose: 5,000 unit Ampicillin Sodium/Sulbactam (Sodium 3 gm/ Sodium Chloride) 100 mls @ 200 mls/ hr IVPB Q8H-IV [facility] Last Admin: 10/29/16 09:12 Dose: 200 mls/hr Sodium Chloride (Normal Saline -) 1,000 mls @ 42 mls/hr IV ASDIR [facility] Last Admin: 10/28/16 16:13 Dose: Not Given Insulin Aspart (Novolog Vial Sliding Scale -) 1 vial SQ ACHS [facility] PRN Reason: Protocol Last Admin: 10/29/16 11:32 Dose: Not Given Insulin Detemir (Levemir Vial) 6 units SQ BID@0700,2200 [facility] Last Admin: 10/29/16 06:25 Dose: 6 units Losartan Potassium (Cozaar -) 50 mg PO DAILY [facility] Last Admin: 10/29/16 09:13 Dose: 50 mg Metoprolol Succinate (Toprol Xl -) 50 mg PO DAILY [facility] Last Admin: 10/29/16 09:13 Dose: 50 mg Polyethylene Glycol (Miralax (For Daily Use) -) 17 gm PO DAILY [facility] Last Admin: 10/29/16 09:13 Dose: 17 gm - Objective Vital Signs: Vital Signs Temperature 98.2 F 10/29/16 14:28 Pulse Rate 80 10/29/16 14:28 Respiratory Rate 18 10/29/16 14:28 Blood Pressure 138/70 10/29/16 14:28 O2 Sat by Pulse Oximetry (%) 100 10/28/16 15:30 Constitutional: Yes: No Distress Cardiovascular: Yes: Regular Rate and Rhythm Respiratory: Yes: Regular, CTA Bilaterally Gastrointestinal: Yes: Normal Bowel Sounds, Soft Musculoskeletal: Yes: Other Extremities: Yes: Other Integumentary: Yes: Other Wound/Incision: Yes: Other (healing well) Neurological: Yes: Alert, Oriented Labs: CBC, BMP 10/28/16 06:00 10/29/16 07:00 Assessment/Plan Diabetic Ulcer Left 2nd Toe HTN/HLD : Diabetes Mellitus OA obesity pvd plan can be switched to oral abx augmentin 500 mg twice a day for another 5 days needs wound care a he can follow up with vascular and his primary doctor
[2016-10-29] MEDS: SODIUM CHLORIDE 1,000 ML IV SCH (15:09)
--- NOTE | 2016-10-29 15:21 | DS ---
Physical Exam: SUBJECTIVE: Patient seen and examined. He feels fine, he wants to go home, he refuses a MRI. He says he will follow up with Dr. Jones. OBJECTIVE: Vital Signs Period Temp Pulse Resp BP Sys/Herron Pulse Ox Last 24 Hr 97.8 F-99 F 68-81 14-20 128-140/70-94 98-100 PE Neuro: alert, awake, cn 2-12intact Pulm: CTAB CV: s1 s2 rrr no mrg Abd: s nt nd +bs Ext: + 3 pitting edema bilaterally, R great toe amputation, L second toe ulcer, slough Laboratory Results - last 24 hr 10/28/16 10/28/16 10/28/16 15:02 17:11 21:18 Sodium Potassium Chloride Carbon Dioxide Anion Gap BUN Creatinine POC Glucometer 133 200 217 Random Glucose Calcium 10/29/16 10/29/16 06:24 07:00 Sodium 141 Potassium 3.9 Chloride 106 Carbon Dioxide 23 Anion Gap 12 BUN 16 Creatinine 1.1 POC Glucometer 141 Random Glucose 134 H Calcium 8.4 L HOSPITAL COURSE: Date of Admission:10/22/16 Date of Discharge: 10/29/16 Minutes to complete discharge: 35 Discharge Summary Reason For Visit: CELLULITIS Current Active Problems Cellulitis (Acute) DVT prophylaxis (Acute) Foot ulcer (Acute) HLD (hyperlipidemia) (Acute) Hospital Course: Initial Hospital Course: Briefly, this 61 year old male with a PMHx of: HTN, HLD, DM, OA presented to the ED with a diabetic ulcer to [address] for several days. 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 Patient states" I'm on my feet a lot and my sneakers and shoes are a little tight." Patient reports having diabetic ulcer's in the past, which resulted in an amputation of his R- great toe and an angiogram at that time. 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 Plan: 1. Left second toe diabetic ulceration/cellulitis - Aortogram, LLE angiogram, anterior tibial artery atherectomy with angioplasty 10/28 - s/p IV Ampicillin q8 (10/23-10/29 - Home with PO augmentin 500mg BID x5 days - Started on Plavix 75mg daily - Santyl daily - Wound care appt for 11/05 @1330 2. HTN - Currently controlled - Cozaar 50mg daily - ASA daily - Continue increased dose Metoprolol 50mg daily 3. HLD - Lipitor 40mg HS 4. DM II - Levemir 6units BID - Restart metformin Dispo: - Home with above plan and abx - Pt to f/u with Dr. jones in wound care, MRI And hyperbarrics to be decided at that time Condition: Stable - Instructions Diet, Activity, Other Instructions: Please return to the ED for any new, persistent, or worsening symptoms. Follow up with your PCP in 1 week Follow up with Dr. Jones November 05 @ 1:30pm Resume home medications as directed on home discharge list New medication: Plavix 75mg daily Increase in metoprolol xl dose: 50mg daily Take antibiotics as directed and until completed Referrals: Zac Encarnacion [Primary Care Provider] - sEa Jones MD [Staff Physician] - Disposition: HOME - Home Medications Comprehensive Discharge Medication List: Ambulatory Orders Insulin (Levemir) [Levemir Flexpen -] 6 units SQ BID 01/23/14 Aspirin [ASA -] 81 mg PO DAILY 10/22/16 Atorvastatin Ca [Lipitor] 40 mg PO HS 10/22/16 Hydrochlorothiazide [Hctz -] 25 mg PO DAILY 10/22/16 Losartan Potassium 50 mg PO DAILY 10/22/16 Metformin HCl [Glucophage] 1,000 mg PO BID 10/22/16 Amoxicillin/Potassium Clav [Augmentin 500-125 Tablet] 1 each PO BID #10 tablet 10/29/16 Clopidogrel Bisulfate [Plavix -] 75 mg PO DAILY #30 tablet 10/29/16 Collagenase Clostridium Hist. [Santyl -] 1 applic TP DAILY #1 tube 10/29/16 Metoprolol Succinate [Toprol XL -] 50 mg PO DAILY #30 tab 10/29/16 This patient is new to me today: No Emergency Visit: Yes ED Registration Date: 10/22/16 Care time: The patient presented to the Emergency Department on the above date and was hospitalized for further evaluation of their emergent condition. Critical Care patient: No - Discharge Referral Referred to [facility] Yes Physician Referral: Esa Jones DO ([facility])
--- NOTE | 2016-11-03 13:36 | OP ---
DATE OF OPERATION: 10/28/2016 PROCEDURE: 1. Aortogram. 2. Left lower extremity angiogram. 3. Tibial artery atherectomy with angioplasty. PREOPERATIVE DIAGNOSIS:: Left foot ulcer. POSTOPERATIVE DIAGNOSIS: Left foot ulcer. SURGEON: Esa Vega DO ANESTHESIA: Fractional BLOOD LOSS: 50 mL INDICATION: The patient is a 61-year-old male who comes in with a second toe ulcer on his left foot. He did not have any palpable pulses and it was decided that he would need an angiogram. The patient was consented for the procedure, understanding all risks, benefits, alternatives. He was then taken to the operating room. DESCRIPTION OF PROCEDURE: Once in the operating room, he was placed on the operating room in supine manner. The areas of the right and left groin were prepped and draped in a sterile surgical manner. We then injected 10 mL 0.5% over the right common femoral artery. We then took a micropuncture needle and punctured the right common femoral artery, . A micropuncture sheath was inserted. An additional 5-Turkmen sheath was inserted. A 0.035 floppy guidewire was then placed in the aorta via fluoroscopy and an Omni flush catheter was placed up in the aorta. We then shot an aortogram by hand injection, showing that the aorta and the iliac arteries were without any disease. We then took a 0.035 stiff guidewire and placed it up and over to the left common femoral artery, following it with the Omni flush catheter. We then shot an angiogram of the left lower extremity, showing that the common femoral artery, the profunda, the SFA and the popliteal artery were patent. 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 Especially, the anterior tibial artery was diseased in multiple areas going into the foot. At this point, we placed a 0.035 stiff guidewire into the SFA. We removed the Omni flush catheter and placed a 6 x 55 crossover sheath. We then placed a Quick-Cross catheter down into the popliteal artery. We then selectively cannulated the anterior tibial artery. We were able to take the wire down and exchange it for a ViperWire. We then used a over the atherectomy device and performed atherectomy of the entire anterior tibial artery from its origin to the distal calf. We then used a 2.5 x 220 Bard tibial balloon and performed angioplasty of the entire anterior tibial artery. We then shot a lesion angiogram showing that the anterior tibial artery was now completely open and patent all the way down into the foot and there was good runoff into the foot. At this point, we brought our sheath up and over. A StarClose device was successfully deployed in the right common femoral artery. Pressures were . There was no bleeding. and Dermabond was placed. The patient tolerated the procedure with no complication. The patient was transferred to the PACU in stable condition where he had a palpable dorsalis pedis pulse. ESA VEGA DO [id number]
== END 2016-10-29 15:44 | disposition home or self-care (01) | DRG 173 ==
LOC: JER 15:59 → JERBED 23:03 → UNDOADMIN 23:37 → J8W 10-23 04:50
PROVIDERS: ADMIT Internal Medicine; ATTEND Nurse Practitioner Acute Care
PROC: 047Q0ZZ Dilation of Left Anterior Tibial Artery, Open Approach (ICD-10-PCS; principal; 2016-10-27)
PROC: 04CQ0ZZ Extirpation of Matter from Left Anterior Tibial Artery, Open Approach (ICD-10-PCS; 2016-10-28)
PROC: B41DYZZ Fluoroscopy of Aorta and Bilateral Lower Extremity Arteries using Other Contrast (ICD-10-PCS; 2016-10-28)
DX: E11.51 Type 2 diabetes mellitus with diabetic peripheral angiopathy without gangrene (principal); E11.621 Type 2 diabetes mellitus with foot ulcer; L97.529 Non-pressure chronic ulcer of other part of left foot with unspecified severity; I10 Essential (primary) hypertension; E78.5 Hyperlipidemia, unspecified; L03.116 Cellulitis of left lower limb; E66.9 Obesity, unspecified; Z68.41 Body mass index [BMI] 40.0-44.9, adult; N17.9 Acute kidney failure, unspecified
CPT/HCPCS: 36415; 73630-TC-LT; 76001-TC; 80048; 80053; 83036; 83605; 85025; 87040; 93005; 93010; 93970-TC; 94760; 99285-25; J1644

== ENCOUNTER 2017-01-14 19:53 | Inpatient (IN) | payer SELFPAY ==
--- NOTE | 2017-01-14 20:31 | PDOC ---
*Physical Exam - Vital Signs Last Vital Signs Temp Pulse Resp BP Pulse Ox 97.5 F L 85 20 155/79 99 01/14/17 20:03 01/14/17 20:03 01/14/17 20:03 01/14/17 20:03 01/14/17 20:03 ED Treatment Course - LABORATORY CBC & Chemistry Diagram: 01/14/17 20:55 01/14/17 20:55 Medical Decision Making - Medical Decision Making 01/14/17 22:43 Agree with DATA ASSISTANT's excellent evaluation, assessment, and plan. 61 M with PMH DM, HTN, hyperlipedemia, right great toe amputation, now with confirmed osteomyelitis of L 2nd toe, presenting to ER from medical file clerk's office due to worsening appearance of wound. - labs + cultures - IV abx - admit *DC/Admit/Observation/Transfer Diagnosis at time of Disposition: Osteomyelitis - Referrals Referrals: Zac Encarnacion [Primary Care Provider] - - Attestations Physician Attestion: 01/14/17 22:48 I, Dr. Rahul Malloy MD, attest that this document has been prepared under my direction and personally reviewed by me in its entirety. I further attest, that it accurately reflects all work, treatment, procedures and medical decision -making performed by me.
[2017-01-14] MEDS ORDERED: VANCOMYCIN 2,000 MG in DEXTROSE 5%-WATER - 250 ML IVPB ONE (20:50)
[2017-01-14] MEDS ORDERED: PIPERACILLIN/TAZOB 3.375 GM/50 ML PRE-DOCKED IV ONE (20:50)
--- NOTE | 2017-01-14 21:00 | PDOC ---
History of Present Illness - General Chief Complaint: Wound Infection Stated Complaint: TOE INFECTION Time Seen by Provider: 01/14/17 20:26 History Source: Patient Exam Limitations: No Limitations - History of Present Illness Initial Comments: 01/14/17 20:55 This is a 61 yo man with PMH DM, HTN, hyperlipedemia, right great toe amputation who presents today with worsening wound on left 2nd toe. He states he attends wound care here with Dr. Mead, who sent pt for MRI on 01/12. MRI revealed osteo of left 2nd toe. 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 He was evaluated by his audit tech Dr. Pagan today who refered pt to ER. He denies pain, fevers, chills, nausea, vomiting or discharge from his wound. Timing/Duration: getting worse Associated Symptoms: reports: denies symptoms Past History - Past Medical History Allergies/Adverse Reactions: Allergies Allergy/AdvReac Type Severity Reaction Status Date / Time No Known Allergies Allergy Verified 01/14/17 20:02 Home Medications: Ambulatory Orders Insulin (Levemir) [Levemir Flexpen -] 6 units SQ BID 01/23/14 Aspirin [ASA -] 81 mg PO DAILY 10/22/16 Atorvastatin Ca [Lipitor] 40 mg PO HS 10/22/16 Hydrochlorothiazide [Hctz -] 25 mg PO DAILY 10/22/16 Losartan Potassium 50 mg PO DAILY 10/22/16 Metformin HCl [Glucophage] 1,000 mg PO BID 10/22/16 Clopidogrel Bisulfate [Plavix -] 75 mg PO DAILY #30 tablet 10/29/16 Collagenase Clostridium Hist. [Santyl -] 1 applic TP DAILY #1 tube 10/29/16 Metoprolol Succinate [Toprol XL -] 50 mg PO DAILY #30 tab 10/29/16 Anemia: No Asthma: No Cancer: No Cardiac Disorders: No CVA: No COPD: No CHF: No Dementia: No Diabetes: Yes GI Disorders: No Disorders: No HTN: Yes Hypercholesterolemia: Yes Liver Disease: No Seizures: No Thyroid Disease: No - Surgical History Abdominal Surgery: No Appendectomy: No Cardiac Surgery: No Cholecystectomy: No Lung Surgery: No Neurologic Surgery: No Orthopedic Surgery: No - Immunization History Immunization Up to Date: Yes - Psycho/Social/Smoking Cessation Hx Anxiety: No Suicidal Ideation: No Smoking History: Never smoked Have you smoked in the past 12 months: No Information on smoking cessation initiated: No Hx Alcohol Use: No Drug/Substance Use Hx: No Substance Use Type: None Hx Substance Use Treatment: No Review of Systems - Review of Systems Able to Perform ROS?: Yes Is the patient limited Iraqi proficient: No Constitutional: No: Symptoms Reported HEENTM: No: Symptoms Reported Respiratory: No: Symptoms reported Cardiac (ROS): No: Symptoms Reported ABD/GI: No: Symptoms Reported : No: Symptoms Reported Musculoskeletal: Yes: See HPI Integumentary: Yes: See HPI Neurological: No: Symptoms reported *Physical Exam - Vital Signs Last Vital Signs Temp Pulse Resp BP Pulse Ox 97.5 F L 85 20 155/79 99 01/14/17 20:03 01/14/17 20:03 01/14/17 20:03 01/14/17 20:03 01/14/17 20:03 - Physical Exam General Appearance: Yes: Appropriately Dressed. No: Apparent Distress HEENT: positive: LINETTE, Normal ENT Inspection, Normal Voice, TMs Normal, Pharynx Normal, Other (poor dentition) Neck: positive: Trachea midline, Supple Respiratory/Chest: positive: Lungs Clear, Normal Breath Sounds. negative: Chest Tender, Respiratory Distress, Accessory Muscle Use Cardiovascular: positive: Regular Rhythm, Regular Rate, S1, S2, Edema (+2 extending to knees). negative: JVD, Murmur Vascular Pulses: Carotid (R): 2+, Carotid (L): 2+, Dorsalis-Pedis (R): 2+, Doralis-Pedis (L): 2+ Gastrointestinal/Abdominal: positive: Normal Bowel Sounds, Soft. negative: Tender, Organomegaly Musculoskeletal: positive: Normal Inspection. negative: CVA Tenderness Extremity: positive: Normal Range of Motion Integumentary: positive: Other (3cm x2cm wound to dorsum of left 2nd toe with the distal 2/3 covered in eschar. exposed bone present. thick yellow discharge present. ) Neurologic: positive: hand stemmer II-XII NML intact, Fully Oriented, Alert, Normal Mood/ Affect, Motor Strength 5/5 ED Treatment Course - LABORATORY CBC & Chemistry Diagram: 01/14/17 20:55 01/14/17 20:55 Medical Decision Making - Medical Decision Making 01/14/17 21:00 A/P: This is a 61 yo man with PMH DM, HTN, hyperlipedemia, right great toe amputation who presents today with worsening wound on left 2nd toe. He states he attends wound care here with Dr. Mead, who sent pt for MRI on 01/12. MRI revealed osteo of left 2nd toe. 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 He was evaluated by his audit tech Dr. Pagan today who refered pt to ER. He denies pain, fevers, chills, nausea, vomiting or discharge from his wound. Wound is located on the dorsal surface of left 2nd toe at the PIP. Exposed bone is present. Eschar present distal to open wound on dorsal surface of toe. Dx: Osteomyelitis - wound cx - blood cx - urine cx - CBC, CMP, coags, lactate - vanc - zosyn - admit 01/14/17 23:04 Case d/w with hospitalist TRACY Castro. Will admit. *DC/Admit/Observation/Transfer Diagnosis at time of Disposition: Osteomyelitis Qualifiers: Osteomyelitis type: other acute Osteomyelitis location: other site Qualified Code(s): M86.18 - Other acute osteomyelitis, other site - Discharge Dispostion Condition at time of disposition: Stable Admit: Yes Decision to Admit order Date/Time: 01/14/17 23:05 - Referrals Referrals: Zac Encarnacion [Primary Care Provider] -
[2017-01-14 21:09] LABS: BASOPHIL 0.7 % (0-2.0); EOSINOPHIL 1.2 % (0-4.5); MCH 26.6 pg (25.7-33.7); MCHC 32.8 g/dl (32.0-35.9); MEAN CELL VOLUME 81.2 fl (80-96); MEAN PLT VOLUME 7.9 fl (7.5-11.1); NEUTROPHILS 63.6 % (42.8-82.8); PLATELET COUNT 390 K/MM3 (134-434); RDW 13.9 % (11.9-15.9)
[2017-01-14] MEDS ORDERED: PIPERACILLIN/TAZOB 3.375 GM 50 ML IVPB ONE (21:11)
[2017-01-14 21:23] LABS: INR 1.12 (0.82-1.09); PROTHROMBIN TIME (PATIENT) 12.4 SEC (9.98-11.88)
[2017-01-14 21:39] LABS: ALBUMIN 3.2 g/dl (3.4-5.0); ANION GAP 8 (8-16); BILIRUBIN,TOTAL 0.4 mg/dL (0.2-1.0); CALCIUM 8.9 mg/dL (8.5-10.1); CO2 24 mmol/L (21-32); CREATININE 1.6 mg/dL (0.7-1.3); GLUCOSE,RANDOM 145 mg/dL (74-106); SGOT/AST 9 U/L (15-37); SGPT/ALT 16 U/L (12-78); TOT PROT 7.5 g/dl (6.4-8.2)
[2017-01-14 21:40] LABS: ALK PHOS 84 U/L (45-117)
[2017-01-14] MEDS ORDERED: VANCOMYCIN 2,000 MG in DEXTROSE 5%-WATER - 500 ML IVPB ONE (22:00)
[2017-01-14] MEDS ORDERED: SODIUM CHLORIDE 1,000 ML IV SCH (22:15)
[2017-01-14 22:31] LABS: URINE APPEARANCE CLEAR; URINE BILIRUBIN NEGATIVE (NEGATIVE); URINE BLOOD 1+ (NEGATIVE); URINE COLOR YELLOW; URINE GLUCOSE (UA) NEGATIVE (NEGATIVE); URINE KETONE NEGATIVE (NEGATIVE); URINE LEUK ESTERASE NEGATIVE (NEGATIVE); URINE NITRITE NEGATIVE (NEGATIVE); URINE UROBILINOGEN NEGATIVE mg/dL (0.2-1.0)
[2017-01-14 22:40] LABS: URINE PROTEIN 1+ (NEGATIVE)
[2017-01-14 22:50] LABS: URINE HYALINE CAST 11 /lpf; URINE MUCUS RARE; URINE RBC 5 /hpf (0-3); URINE WBC 1 /hpf (3-5)
--- NOTE | 2017-01-14 23:09 | HP ---
CHIEF COMPLAINT: Left toe #2 infection PCP: Dr. Devan Encarnacion HISTORY OF PRESENT ILLNESS: This is a 61 y/o male with a past medical history of Diabetes Mellitus, R great toe amputation. 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 Patient recently had a MRI that showed osteomyelitis and was scheduled for a PICC line. He reports going to the wound center weekly, including Hyperbarics. Patient denies fever, chills, cough, SOB, CP, AP, N/V/D, constipaton, dysuria. ER course was notable for: (1) No leukocytosis, afebrile (2) ESR 81, CRP 1.9 (3) CHARLES - BUN 29, Cr 1.6 Recent Travel: None PAST MEDICAL HISTORY: Diabetes Mellitus Hypertension Hyperlipidemia PAST SURGICAL HISTORY: Amputation of R- great toe Social History: Smoking: Never Alcohol: None Drugs: None Lives with S.O., employed Family History: Allergies No Known Allergies Allergy (Verified 01/14/17 20:02) HOME MEDICATIONS: Home Medications Medication Instructions Recorded Insulin (Levemir) [Levemir Flexpen 6 units SQ BID 01/23/14 -] Aspirin [ASA -] 81 mg PO DAILY 10/22/16 Atorvastatin Ca [Lipitor] 40 mg PO HS 10/22/16 Hydrochlorothiazide [Hctz -] 25 mg PO DAILY 10/22/16 Losartan Potassium 50 mg PO DAILY 10/22/16 Metformin HCl [Glucophage] 1,000 mg PO BID 10/22/16 Clopidogrel Bisulfate [Plavix -] 75 mg PO DAILY #30 tablet 10/29/16 Collagenase Clostridium Hist. 1 applic TP DAILY #1 tube 10/29/16 [Santyl -] Metoprolol Succinate [Toprol XL -] 50 mg PO DAILY #30 tab 10/29/16 REVIEW OF SYSTEMS CONSTITUTIONAL: Absent: fever, chills, diaphoresis, generalized weakness, malaise, loss of appetite, weight change HEENT: Absent: rhinorrhea, nasal congestion, throat pain, throat swelling, difficulty swallowing, mouth swelling, ear pain, eye pain, visual changes CARDIOVASCULAR: Absent: chest pain, syncope, palpitations, irregular heart rate, lightheadedness , peripheral edema RESPIRATORY: Absent: cough, shortness of breath, dyspnea with exertion, orthopnea, wheezing, stridor, hemoptysis GASTROINTESTINAL: Absent: abdominal pain, abdominal distension, nausea, vomiting, diarrhea, constipation, melena, hematochezia GENITOURINARY: Absent: dysuria, frequency, urgency, hesitancy, hematuria, flank pain, genital pain MUSCULOSKELETAL: Absent: myalgia, arthralgia, joint swelling, back pain, neck pain SKIN: diabetic ulcer to left toe #2 Absent: rash, itching, pallor HEMATOLOGIC/IMMUNOLOGIC: Absent: easy bleeding, easy bruising, lymphadenopathy, frequent infections ENDOCRINE: Absent: unexplained weight gain, unexplained weight loss, heat intolerance, cold intolerance NEUROLOGIC: Absent: headache, focal weakness or paresthesias, dizziness, unsteady gait, seizure, mental status changes, bladder or bowel incontinence PSYCHIATRIC: Absent: anxiety, depression, suicidal or homicidal ideation, hallucinations. PHYSICAL EXAMINATION Vital Signs - 24 hr 01/14/17 20:03 Temperature 97.5 F L Pulse Rate 85 Respiratory 20 Rate Blood Pressure 155/79 O2 Sat by Pulse 99 Oximetry (%) GENERAL: Obese, awake, alert, and fully oriented, in no acute distress. HEAD: Normal with no signs of trauma. EYES: Pupils equal, round and reactive to light, extraocular movements intact, sclera anicteric, conjunctiva clear. No lid lag. EARS, NOSE, THROAT: Ears normal, nares patent, oropharynx clear without exudates. Moist mucous membranes. Poor Dentition NECK: Normal range of motion, supple without lymphadenopathy, JVD, or masses. LUNGS: Breath sounds equal, clear to auscultation bilaterally. No wheezes, and no crackles. No accessory muscle use. HEART: Regular rate and rhythm, normal S1 and S2 without murmur, rub or gallop. ABDOMEN: Soft, nontender, not distended, normoactive bowel sounds, no guarding, no rebound, no masses. No hepatomegaly or splenomegaly. MUSCULOSKELETAL: Normal range of motion at all joints. No bony deformities or tenderness. No CVA tenderness. UPPER EXTREMITIES: 2+ pulses, warm, well-perfused. No cyanosis. No clubbing. No peripheral edema. LOWER EXTREMITIES: 2+ pulses, warm, well-perfused. No calf tenderness. +1 R>L pitting peripheral edema from below knees- feet. NEUROLOGICAL: Cranial nerves II-XII intact. Normal speech. Gait not observed. PSYCHIATRIC: Cooperative. Good eye contact. Appropriate mood and affect. SKIN: Warm, dry, normal turgor, no rashes. Normal capillary refill. (3cm x2cm wound to dorsum of left 2nd toe with the distal 2/3 covered in eschar. exposed bone present. thick yellow discharge noted. ) Laboratory Results - last 24 hr 01/14/17 01/14/17 01/14/17 20:48 20:55 20:55 WBC 9.0 RBC 4.01 Hgb 10.7 L Hct 32.6 L MCV 81.2 MCH 26.6 MCHC 32.8 RDW 13.9 Plt Count 390 D MPV 7.9 Neutrophils % 63.6 Lymphocytes % 25.7 Monocytes % 8.8 Eosinophils % 1.2 Basophils % 0.7 ESR INR 1.12 Sodium Potassium Chloride Carbon Dioxide Anion Gap BUN Creatinine Creat Clearance w eGFR Random Glucose Lactic Acid Calcium Total Bilirubin AST ALT Alkaline Phosphatase C-Reactive Protein Total Protein Albumin Urine Color Yellow Urine Appearance Clear Urine pH 5.0 Urine Protein 1+ H Urine Glucose (UA) Negative Urine Ketones Negative Urine Blood 1+ H Urine Nitrite Negative Urine Bilirubin Negative Urine Urobilinogen Negative Ur Leukocyte Esterase Negative Urine RBC 5 Urine WBC 1 Ur Epithelial Cells Rare Hyaline Casts 11 Urine Mucus Rare 01/14/17 01/14/17 01/14/17 20:55 20:55 20:55 WBC RBC Hgb Hct MCV MCH MCHC RDW Plt Count MPV Neutrophils % Lymphocytes % Monocytes % Eosinophils % Basophils % ESR INR Sodium 136 Potassium 4.5 Chloride 104 Carbon Dioxide 24 Anion Gap 8 BUN 29 H D Creatinine 1.6 H D Creat Clearance w eGFR 43.87 Random Glucose 145 H Lactic Acid 1.2 Calcium 8.9 Total Bilirubin 0.4 D AST 9 L D ALT 16 D Alkaline Phosphatase 84 C-Reactive Protein 1.9 H Total Protein 7.5 Albumin 3.2 L Urine Color Urine Appearance Urine pH Urine Protein Urine Glucose (UA) Urine Ketones Urine Blood Urine Nitrite Urine Bilirubin Urine Urobilinogen Ur Leukocyte Esterase Urine RBC Urine WBC Ur Epithelial Cells Hyaline Casts Urine Mucus 01/14/17 20:55 WBC RBC Hgb Hct MCV MCH MCHC RDW Plt Count MPV Neutrophils % Lymphocytes % Monocytes % Eosinophils % Basophils % ESR 81 H INR Sodium Potassium Chloride Carbon Dioxide Anion Gap BUN Creatinine Creat Clearance w eGFR Random Glucose Lactic Acid Calcium Total Bilirubin AST ALT Alkaline Phosphatase C-Reactive Protein Total Protein Albumin Urine Color Urine Appearance Urine pH Urine Protein Urine Glucose (UA) Urine Ketones Urine Blood Urine Nitrite Urine Bilirubin Urine Urobilinogen Ur Leukocyte Esterase Urine RBC Urine WBC Ur Epithelial Cells Hyaline Casts Urine Mucus ASSESSMENT/PLAN: This is a 61 y/o male with a PMHx of: HTN, HLD, DM, R- Great toe amputation ( 2013). Admitted for Osteomyelitis for further evaluation of their emergent condition. Problem List - Problem (1) Osteomyelitis Assessment/Plan: - Admit M/S - MRI left foot 01/12/17- osteomyelitis - Was receiving wound care for Diabetic Ulcer left toe #2, now worse sent in from Podiatry for IV ABX - Vancomycin and Zosyn given in ED - Continue Vancomycin and Zosyn - Appreciate ID Consult - Appreciate Vascular Consult - Wound Care Nurse - Wound, Blood Cultures pending - No leukocytosis, afebrile - Monitor CBC - Monitor vitals Code(s): M86.9 - OSTEOMYELITIS, UNSPECIFIED (2) Diabetic foot Assessment/Plan: - See above Code(s): E11.8 - TYPE 2 DIABETES MELLITUS WITH UNSPECIFIED COMPLICATIONS (3) Diabetes Assessment/Plan: - BGMs - ISS - Hold Metformin secondary to CHARLES - Diabetic Diet Code(s): E11.9 - TYPE 2 DIABETES MELLITUS WITHOUT COMPLICATIONS (4) Hypertension Assessment/Plan: - Controlled - Monitor BP - Continue Lopressor - Hold HCTZ, Losartan secondary to CHARLES - Monitor renal function - Low Na Diet Code(s): I10 - ESSENTIAL (PRIMARY) HYPERTENSION (5) HLD (hyperlipidemia) Assessment/Plan: - Continue Lipitor Code(s): E78.5 - HYPERLIPIDEMIA, UNSPECIFIED (6) DVT prophylaxis Assessment/Plan: - OOB - Heparin SQ Code(s): [id number] - Visit type - Emergency Visit Emergency Visit: Yes ED Registration Date: 01/14/17 Care time: The patient presented to the Emergency Department on the above date and was hospitalized for further evaluation of their emergent condition. - New Patient This patient is new to me today: Yes Date on this admission: 01/14/17 - Critical Care Critical Care patient: No
[2017-01-15] MEDS ORDERED: HEPARIN NA (PORCINE) 5,000 UNITS/ML 1ML VIAL ONE
[2017-01-15] MEDS: HEPARIN NA (PORCINE) 5,000 UNITS/ML 1ML VIAL SQ SCH ×4 (00:08→21:21)
[2017-01-15 01:06] VITALS: BMI 36.3
[2017-01-15] MEDS ORDERED: DEXTROSE 5%-WATER - 50 ML IVPB ONE ×3 (05:12→20:08)
[2017-01-15] MEDS ORDERED: PIPERACILLIN/TAZOBACTAM 3.375 GM VIAL IVPB ONE ×3 (05:12→20:08)
[2017-01-15] MEDS: INSULIN SLIDING SCALE (NOVOLOG) 1 VIAL SQ SCH ×4 (06:36→21:21)
[2017-01-15] MEDS ORDERED: PIPERACILLIN/TAZOB 3.375 GM 3.375 GM in DEXTROSE 5%-WATER - 50 ML IVPB ONE (07:00)
[2017-01-15 07:22] LABS: ANION GAP 10 (8-16); CO2 23 mmol/L (21-32); CREATININE 1.1 mg/dL (0.7-1.3); GLUCOSE,RANDOM 139 mg/dL (74-106)
[2017-01-15 07:26] LABS: BASOPHIL 0.6 % (0-2.0); EOSINOPHIL 1.9 % (0-4.5); MCH 26.1 pg (25.7-33.7); MCHC 32.3 g/dl (32.0-35.9); MEAN CELL VOLUME 80.9 fl (80-96); MEAN PLT VOLUME 8.1 fl (7.5-11.1); NEUTROPHILS 65.2 % (42.8-82.8); PLATELET COUNT 388 K/MM3 (134-434); RDW 13.8 % (11.9-15.9); WHITE BLOOD COUNT 7.8 K/mm3 (4.0-10.0)
--- NOTE | 2017-01-15 08:40 | CONSULT ---
Consult Consult Specialty:: Vascular Surgery - History of Present Illness History of Present Illness: 61 year old former patient of mine who has been treated at the wound center for months with a non-healing wound of the left 2nd toe. He has had an angioplasty of the left AT in October and HBO treatments without improvement. He was admitted from wound care with pals for more IV antibiotics. He has had no vascular imaging after the angio procedure. He has pain in the foot. MRI suggests ongoing osteomyelitis of the left 2nd toe and 1st metatarsal. - History Source History Provided By: Patient, Medical Record Limitations to Obtaining History: No Limitations - Past Medical History Cardio/Vascular: Yes: HTN Endocrine: Yes: Diabetes Mellitus - Past Surgical History Additional Surgical History: Right tibial angioplasty, 1st toe amputation 2014 - Alcohol/Substance Use Hx Alcohol Use: No - Smoking History Smoking history: Former smoker Have you smoked in the past 12 months: No Home Medications - Allergies Allergies/Adverse Reactions: Allergies Allergy/AdvReac Type Severity Reaction Status Date / Time No Known Allergies Allergy Verified 01/14/17 20:02 - Home Medications Home Medications: Ambulatory Orders Insulin (Levemir) [Levemir Flexpen -] 6 units SQ BID 01/23/14 Aspirin [ASA -] 81 mg PO DAILY 10/22/16 Atorvastatin Ca [Lipitor] 40 mg PO HS 10/22/16 Hydrochlorothiazide [Hctz -] 25 mg PO DAILY 10/22/16 Losartan Potassium 50 mg PO DAILY 10/22/16 Metformin HCl [Glucophage] 1,000 mg PO BID 10/22/16 Clopidogrel Bisulfate [Plavix -] 75 mg PO DAILY #30 tablet 10/29/16 Collagenase Clostridium Hist. [Santyl -] 1 applic TP DAILY #1 tube 10/29/16 Metoprolol Succinate [Toprol XL -] 50 mg PO DAILY #30 tab 10/29/16 Physical Exam Vital Signs: Vital Signs Temperature 97.8 F 01/15/17 07:46 Pulse Rate 89 01/15/17 07:46 Respiratory Rate 18 01/15/17 07:46 Blood Pressure 137/78 01/15/17 07:46 O2 Sat by Pulse Oximetry (%) 100 01/15/17 01:09 Constitutional: Yes: Obese Eyes: Yes: WNL HENT: Yes: WNL Neck: Yes: Supple Cardiovascular: Yes: Regular Rate and Rhythm Respiratory: Yes: Regular Gastrointestinal: Yes: Soft Extremities: Yes: Cool (Left foot.), Other (Necrotic wound with exposed bone of left 2nd toe distal phalanges.) Edema: Yes Peripheral Pulses WNL: No Labs: CBC, BMP 01/15/17 06:05 01/15/17 06:05 Problem List - Problems (1) Osteomyelitis Assessment/Plan: Toe does not appear salvageable and should be amputated once distal flow is evaluated. Code(s): M86.9 - OSTEOMYELITIS, UNSPECIFIED Qualifiers: Osteomyelitis type: chronic, with draining sinus Osteomyelitis location : foot Laterality: left Qualified Code(s): M86.472 - Chronic osteomyelitis with draining sinus, left ankle and foot (2) Ischemic foot Assessment/Plan: Left foot is cool with no palpable pulse. Prior angio procedure does not appear to have improved the flow to the distal foot and the toe wound has not healed in 3 months. Reevaluation of the distal flow is needed and plans for aterial bypass for limb salvage should be considered. Recent studies suggest that bypass is superior to angio revascularization in this setting. Code(s): I99.8 - OTHER DISORDER OF CIRCULATORY SYSTEM
[2017-01-15] MEDS: CLOPIDOGREL BISULFATE 75 MG TABLET (FP) PO SCH (09:19)
[2017-01-15] MEDS: METOPROLOL SUCCINATE 50 MG TAB.SR.24H (FP) PO SCH (09:19)
[2017-01-15] MEDS: ASPIRIN 81 MG CHEWABLE TABLETS PO SCH (09:19)
[2017-01-15] MEDS: COLLAGENASE CLOSTRIDIUM HIST. 30 GRAMS TUBE TP SCH (09:19)
--- NOTE | 2017-01-15 09:24 | EKG ---
Test Reason : Blood Pressure : / mmHG Vent. Rate : 075 BPM Atrial Rate : 075 BPM P-R Int : 190 ms QRS Dur : 088 ms QT Int : 400 ms P-R-T Axes : 037 -45 029 degrees QTc Int : 446 ms NORMAL SINUS RHYTHM LEFT AXIS DEVIATION INFERIOR INFARCT (CITED ON OR BEFORE 23-OCT-2016) ANTEROSEPTAL INFARCT (CITED ON OR BEFORE 23-OCT-2016) ABNORMAL ECG WHEN COMPARED WITH ECG OF 23-OCT-2016 03:45, NO SIGNIFICANT CHANGE WAS FOUND Confirmed by ROMINA BARTLETT MD ([id number]) on 01/15/2017 9:24:25 AM Referred By: Confirmed By:ROMINA BARTLETT MD
[2017-01-15] MEDS ORDERED: VANCOMYCIN 1 GRAM (PRE-DOCKED) 1,000 MG/250 ML BAG IVPB ONE (10:00)
[2017-01-15] MEDS ORDERED: LOSARTAN POTASSIUM 50 MG TABLET (FP) PO SCH (10:00)
[2017-01-15] MEDS ORDERED: VANCOMYCIN 1,000 MG in DEXTROSE 5%-WATER - 250 ML IVPB SCH (10:00)
--- NOTE | 2017-01-15 13:26 | PN ---
Physical Exam: SUBJECTIVE: Patient seen and examined. He denies abdominal pain or discomfort. OBJECTIVE: Vital Signs Period Temp Pulse Resp BP Sys/Herron Pulse Ox Last 24 Hr 97.6 F-97.8 F 72-89 18-20 121-147/78-91 100-100 GENERAL: Awake, alert, and fully oriented, in no acute distress. HEAD: Normal with no signs of trauma. EYES: Pupils equal, round and reactive to light, extraocular movements intact, sclera anicteric, conjunctiva clear. No lid lag. EARS, NOSE, THROAT: Ears normal, nares patent, oropharynx clear without exudates. Moist mucous membranes. NECK: Normal range of motion, supple without lymphadenopathy, JVD, or masses. LUNGS: Breath sounds equal, clear to auscultation bilaterally. No wheezes, and no crackles. No accessory muscle use. HEART: Regular rate and rhythm ABDOMEN: Soft, nontender, not distended, normoactive bowel sounds, no guarding, no rebound, no masses. No hepatomegaly or splenomegaly. MUSCULOSKELETAL: Normal range of motion at all joints. No bony deformities or tenderness. No CVA tenderness. LOWER EXTREMITIES: +3 pitting edema of right leg>foot, +3 pitting edema of left leg >foot. +diabetic discolored ulceration on left second toe, amputation of right foot great toe. NEUROLOGICAL: Normal speech. Gait not observed. PSYCHIATRIC: Cooperative. Good eye contact. Appropriate mood and affect. Laboratory Results - last 24 hr 01/15/17 01/15/17 01/15/17 05:33 06:05 06:05 WBC 7.8 RBC 3.87 L Hgb 10.1 L Hct 31.3 L MCV 80.9 MCH 26.1 MCHC 32.3 RDW 13.8 Plt Count 388 MPV 8.1 Neutrophils % 65.2 Lymphocytes % 23.3 Monocytes % 9.0 Eosinophils % 1.9 Basophils % 0.6 Sodium 138 Potassium 4.2 Chloride 105 Carbon Dioxide 23 Anion Gap 10 BUN 22 H D Creatinine 1.1 D POC Glucometer 134 Random Glucose 139 H Hemoglobin A1c % Calcium 9.0 01/15/17 01/15/17 06:05 11:17 WBC RBC Hgb Hct MCV MCH MCHC RDW Plt Count MPV Neutrophils % Lymphocytes % Monocytes % Eosinophils % Basophils % Sodium Potassium Chloride Carbon Dioxide Anion Gap BUN Creatinine POC Glucometer 182 Random Glucose Hemoglobin A1c % 8.5 H D Calcium Active Medications Generic Name Dose Route Start Last Admin Trade Name Tyler PRN Reason Stop Dose Admin Aspirin 81 mg 01/15/17 10:00 01/15/17 09:19 Asa - PO 81 mg DAILY GERARDO Administration Atorvastatin Calcium 40 mg 01/15/17 22:00 Lipitor - PO HS GERARDO Clopidogrel Bisulfate 75 mg 01/15/17 10:00 01/15/17 09:19 Plavix - PO 75 mg DAILY GERARDO Administration Collagenase 1 applic 01/15/17 10:00 01/15/17 09:19 Santyl - TP 1 applic DAILY GERARDO Administration Heparin Sodium (Porcine) 5,000 unit 01/14/17 23:45 01/15/17 05:35 Heparin - SQ 5,000 unit TID GERARDO Administration Sodium Chloride 1,000 mls @ 125 mls/hr 01/14/17 22:15 01/14/17 22:22 Normal Saline - IV 125 mls/hr ASDIR GERARDO Administration Vancomycin HCl 1,000 mg/ 250 mls @ 200 mls/hr 01/15/17 10:00 Dextrose IVPB Q12H [facility] Insulin Aspart 1 vial 01/15/17 07:00 01/15/17 11:48 Novolog Vial Sliding Scale - SQ 2 units ACHS GERARDO Administration Protocol Metoprolol Succinate 50 mg 01/15/17 10:00 01/15/17 09:19 Toprol Xl - PO 50 mg DAILY GERARDO Administration Oxycodone HCl 5 mg 01/15/17 10:31 Roxicodone - PO Q6H PRN PAIN Piperacillin Sod/Tazobactam Sod 3.375 gm 01/15/17 04:00 Zosyn 3.375gm Ivpb (Pre-Docked) IVPB Q8H-IV GERARDO Protocol ASSESSMENT/PLAN: Patient is a 61 year old male with a significant medical history of hypertension , hyperlipidemia, diabetes and right great toe amputation. 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 Patient reports having diabetic ulcer's in the past, with amputation of his right great toe. Patient denies fever, chills or shortness of breath. Imagin01/15/2017: Vascular lower ext. ultrasound pending ID: Left second diabetic toe ulceration and cellulitis, +slough - acute on chronic Assessment/Plan: Left foot 2nd toe with discoloration, anterior toe diabetic ulcer, no palpable pulses to left foot, but foot is warm to touch on Santyl daily Started on Zosyn by ID WBC within normal limits, remains afebrile Seen by vascular today, vascular study pending Cardiology: Hypertension - chronic Assessment/Plan: On Metoprolol 50mg daily, HCTZ on hold /2 to renal fx Monitor BP Hyperlipidemia Assessment/Plan: On Lipitor Endocrine: Diabetes Mellitus Assessment/Plan: Novolog sliding scale Monitor BGMs Renal: CHARLES - Creat 1.6 on 01/14, baseline ~ 1.2 Assessment/Plan: Renal function now stable 1.6>1.1 continue to hold HCTZ F.E.N. Fluids: NS @ 75cc/hr Electrolytes: monitor lytes Nutrition: diabetic diet Prophylaxis: DVT Prophy: Heparin GI: Protonix 40mg daily Dispositon: Requires inpatient hospitalization. Full Code. Visit type - Emergency Visit Emergency Visit: Yes ED Registration Date: 01/14/17 Care time: The patient presented to the Emergency Department on the above date and was hospitalized for further evaluation of their emergent condition. - New Patient This patient is new to me today: No - Critical Care Critical Care patient: No - Discharge Referral Referred to [facility] Med P.C.: No
[2017-01-15] MEDS: oxyCODONE HCL 5 MG TABLET PO PRN (13:40)
--- NOTE | 2017-01-15 14:20 | CONSULT ---
Consult Consult Specialty:: infectious diseases Reason for Consultation:: osteo of the foot left - History of Present Illness History of Present Illness: 61 y/o male with a PMHx of: HTN, HLD, DM, OA. 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 Patient denies fever, chills, cough, SOB, CP, AP, N/V/D, constipaton, dysuria. - History Source History Provided By: Patient Limitations to Obtaining History: No Limitations - Past Medical History Cardio/Vascular: Yes: HTN Endocrine: Yes: Diabetes Mellitus - Past Surgical History Additional Surgical History: Right tibial angioplasty, 1st toe amputation 2014 - Alcohol/Substance Use Hx Alcohol Use: No - Smoking History Smoking history: Former smoker Have you smoked in the past 12 months: No Home Medications - Allergies Allergies/Adverse Reactions: Allergies Allergy/AdvReac Type Severity Reaction Status Date / Time No Known Allergies Allergy Verified 01/14/17 20:02 - Home Medications Home Medications: Ambulatory Orders Insulin (Levemir) [Levemir Flexpen -] 6 units SQ BID 01/23/14 Aspirin [ASA -] 81 mg PO DAILY 10/22/16 Atorvastatin Ca [Lipitor] 40 mg PO HS 10/22/16 Hydrochlorothiazide [Hctz -] 25 mg PO DAILY 10/22/16 Losartan Potassium 50 mg PO DAILY 10/22/16 Metformin HCl [Glucophage] 1,000 mg PO BID 10/22/16 Clopidogrel Bisulfate [Plavix -] 75 mg PO DAILY #30 tablet 10/29/16 Collagenase Clostridium Hist. [Santyl -] 1 applic TP DAILY #1 tube 10/29/16 Metoprolol Succinate [Toprol XL -] 50 mg PO DAILY #30 tab 10/29/16 Review of Systems - Review of Systems Constitutional: reports: No Symptoms Eyes: reports: No Symptoms HENT: reports: No Symptoms Neck: reports: No Symptoms Cardiovascular: reports: No Symptoms Respiratory: reports: No Symptoms Gastrointestinal: reports: No Symptoms Genitourinary: reports: No Symptoms Musculoskeletal: reports: Other Integumentary: reports: Other Neurological: reports: No Symptoms Endocrine: reports: No Symptoms Hematology/Lymphatic: reports: No Symptoms Psychiatric: reports: No Symptoms Physical Exam Vital Signs: Vital Signs Temperature 97.8 F 01/15/17 07:46 Pulse Rate 89 01/15/17 07:46 Respiratory Rate 18 01/15/17 07:46 Blood Pressure 137/78 01/15/17 07:46 O2 Sat by Pulse Oximetry (%) 100 01/15/17 09:00 Constitutional: Yes: Well Nourished, No Distress, Calm HENT: Yes: Atraumatic Cardiovascular: Yes: Regular Rate and Rhythm Respiratory: Yes: Regular, CTA Bilaterally Gastrointestinal: Yes: Normal Bowel Sounds, Soft Musculoskeletal: Yes: WNL Extremities: Yes: Other Wound/Incision: Yes: Other (wound to dorsum of left 2nd toe with t eschar. exposed bone present. yellow discharge was noted) Neurological: Yes: Alert, Oriented Psychiatric: Yes: Alert, Oriented Labs: CBC, BMP 01/15/17 06:05 01/15/17 06:05 Imaging - Results Ultrasound: Report Reviewed, Image Reviewed MRI: Report Reviewed, Image Reviewed Assessment/Plan Problem List - Problem (1) Osteomyelitis Code(s): M86.9 - OSTEOMYELITIS, UNSPECIFIED (2) Diabetic foot Code(s): E11.8 - TYPE 2 DIABETES MELLITUS WITH UNSPECIFIED COMPLICATIONS (3) Diabetes Code(s): E11.9 - TYPE 2 DIABETES MELLITUS WITHOUT COMPLICATIONS (4) Hypertension Code(s): I10 - ESSENTIAL (PRIMARY) HYPERTENSION (5) HLD (hyperlipidemia) Code(s): E78.5 - HYPERLIPIDEMIA, UNSPECIFIED this patient has been receiving hyperbaric for couple of weeks patient has osteo there are two ways of going about it either the patient needs amputation or we can try to give abx for 4-6 weeks he has multibacterial positive from his wound cx i am going to treat it plan we can do amputation we can get a bone biopsy after stopping abx for 4d hours or we will treat for 4-6 weeks with zosyn i ave started him on zosyn once a plan is finalized we will go accordingly
[2017-01-15] MEDS ORDERED: PIPERACILLIN/TAZOB 3.375 GM 3.375 GM in DEXTROSE 5%-WATER - 50 ML IVPB SCH (15:00)
[2017-01-15] MEDS: SODIUM CHLORIDE 1,000 ML IV SCH (16:30)
[2017-01-15] MEDS: PIPERACILLIN/TAZOB 3.375 GM 3.375 GM in DEXTROSE 5%-WATER - 50 ML IVPB SCH (20:15)
[2017-01-15] MEDS: ATORVASTATIN CA 40 MG TABLET (FP) PO SCH (21:21)
[2017-01-16] MEDS ORDERED: DEXTROSE 5%-WATER - 50 ML IVPB ONE ×3 (01:10→16:28)
[2017-01-16] MEDS ORDERED: PIPERACILLIN/TAZOBACTAM 3.375 GM VIAL IVPB ONE ×3 (01:10→16:28)
[2017-01-16] MEDS: PIPERACILLIN/TAZOB 3.375 GM 3.375 GM in DEXTROSE 5%-WATER - 50 ML IVPB SCH ×3 (01:18→17:11)
[2017-01-16] MEDS: PIPERACILLIN/TAZOB 3.375 GM/50 ML PRE-DOCKED IVPB SCH (03:30)
[2017-01-16] MEDS: INSULIN SLIDING SCALE (NOVOLOG) 1 VIAL SQ SCH ×4 (06:15→21:11)
[2017-01-16] MEDS: HEPARIN NA (PORCINE) 5,000 UNITS/ML 1ML VIAL SQ SCH ×3 (06:16→21:11)
[2017-01-16] MEDS: SODIUM CHLORIDE 1,000 ML IV SCH ×2 (06:17→22:55)
[2017-01-16 08:24] LABS: BASOPHIL 0.8 % (0-2.0); EOSINOPHIL 1.3 % (0-4.5); MCH 26.6 pg (25.7-33.7); MEAN CELL VOLUME 80.5 fl (80-96); MEAN PLT VOLUME 8.2 fl (7.5-11.1); NEUTROPHILS 71.9 % (42.8-82.8); PLATELET COUNT 437 K/MM3 (134-434); RDW 14.2 % (11.9-15.9); WHITE BLOOD COUNT 8.9 K/mm3 (4.0-10.0)
[2017-01-16 08:37] LABS: ALBUMIN 3.3 g/dl (3.4-5.0); ANION GAP 10 (8-16); CALCIUM 9.1 mg/dL (8.5-10.1); CO2 23 mmol/L (21-32); CREATININE 1.2 mg/dL (0.7-1.3); GLUCOSE,RANDOM 138 mg/dL (74-106); SGOT/AST 10 U/L (15-37); SGPT/ALT 15 U/L (12-78)
[2017-01-16 08:39] LABS: ALK PHOS 84 U/L (45-117); BILIRUBIN,TOTAL 0.7 mg/dL (0.2-1.0); TOT PROT 7.9 g/dl (6.4-8.2)
[2017-01-16] MEDS: METOPROLOL SUCCINATE 50 MG TAB.SR.24H (FP) PO SCH (10:32)
[2017-01-16] MEDS: CLOPIDOGREL BISULFATE 75 MG TABLET (FP) PO SCH (10:32)
[2017-01-16] MEDS: ASPIRIN 81 MG CHEWABLE TABLETS PO SCH (10:32)
--- NOTE | 2017-01-16 11:39 | PN ---
Physical Exam: SUBJECTIVE: Patient seen and examined, denies any discomfort or pain. States pain managed with Oxycodone 5mg. OBJECTIVE: Vital Signs Period Temp Pulse Resp BP Sys/Herron Pulse Ox Last 24 Hr 97.4 F-98.6 F 78-87 16-18 113-133/62-84 100 GENERAL: Awake, alert, and fully oriented, in no acute distress. HEAD: Normal with no signs of trauma. EYES: Pupils equal, round and reactive to light, extraocular movements intact, sclera anicteric, conjunctiva clear. No lid lag. EARS, NOSE, THROAT: Ears normal, nares patent, oropharynx clear without exudates. Moist mucous membranes. NECK: Normal range of motion, supple without lymphadenopathy, JVD, or masses. LUNGS: Breath sounds equal, clear to auscultation bilaterally. No wheezes, and no crackles. No accessory muscle use. HEART: Regular rate and rhythm ABDOMEN: Soft, nontender, not distended, normoactive bowel sounds, no guarding, no rebound, no masses. No hepatomegaly or splenomegaly. MUSCULOSKELETAL: Normal range of motion at all joints. No bony deformities or tenderness. No CVA tenderness. LOWER EXTREMITIES: +3 pitting edema of right leg>foot, +3 pitting edema of left leg >foot. +diabetic discolored ulceration on left second toe, amputation of right foot great toe. NEUROLOGICAL: Normal speech. Gait not observed. PSYCHIATRIC: Cooperative. Good eye contact. Appropriate mood and affect. Laboratory Results - last 24 hr 01/15/17 01/15/17 01/15/17 06:05 11:17 16:33 WBC RBC Hgb Hct MCV MCH MCHC RDW Plt Count MPV Neutrophils % Lymphocytes % Monocytes % Eosinophils % Basophils % Sodium Potassium Chloride Carbon Dioxide Anion Gap BUN Creatinine Creat Clearance w eGFR POC Glucometer 182 154 Random Glucose Hemoglobin A1c % 8.5 H D Calcium Total Bilirubin AST ALT Alkaline Phosphatase Total Protein Albumin 01/15/17 01/16/17 01/16/17 21:20 06:14 07:30 WBC 8.9 RBC 4.24 Hgb 11.3 L D Hct 34.1 L MCV 80.5 MCH 26.6 MCHC 33.0 RDW 14.2 Plt Count 437 H MPV 8.2 Neutrophils % 71.9 Lymphocytes % 18.9 Monocytes % 7.1 Eosinophils % 1.3 Basophils % 0.8 Sodium Potassium Chloride Carbon Dioxide Anion Gap BUN Creatinine Creat Clearance w eGFR POC Glucometer 175 145 Random Glucose Hemoglobin A1c % Calcium Total Bilirubin AST ALT Alkaline Phosphatase Total Protein Albumin 01/16/17 07:30 WBC RBC Hgb Hct MCV MCH MCHC RDW Plt Count MPV Neutrophils % Lymphocytes % Monocytes % Eosinophils % Basophils % Sodium 137 Potassium 4.4 Chloride 104 Carbon Dioxide 23 Anion Gap 10 BUN 18 Creatinine 1.2 Creat Clearance w eGFR > 60 POC Glucometer Random Glucose 138 H Hemoglobin A1c % Calcium 9.1 Total Bilirubin 0.7 D AST 10 L ALT 15 Alkaline Phosphatase 84 Total Protein 7.9 Albumin 3.3 L Active Medications Generic Name Dose Route Start Last Admin Trade Name Freq PRN Reason Stop Dose Admin Aspirin 81 mg 01/15/17 10:00 01/16/17 10:32 Asa - PO 81 mg DAILY GERARDO Administration Atorvastatin Calcium 40 mg 01/15/17 22:00 01/15/17 21:21 Lipitor - PO 40 mg HS GERARDO Administration Clopidogrel Bisulfate 75 mg 01/15/17 10:00 01/16/17 10:32 Plavix - PO 75 mg DAILY GERARDO Administration Collagenase 1 applic 01/15/17 10:00 01/15/17 09:19 Santyl - TP 1 applic DAILY GERARDO Administration Heparin Sodium (Porcine) 5,000 unit 01/14/17 23:45 01/16/17 06:16 Heparin - SQ 5,000 unit TID GERARDO Administration Sodium Chloride 1,000 mls @ 75 mls/hr 01/15/17 15:42 01/16/17 06:17 Normal Saline - IV 75 mls/hr ASDIR GERARDO Administration Piperacillin Sod/Tazobactam 50 mls @ 100 mls/hr 01/15/17 21:00 01/16/17 10:32 Sod 3.375 gm/ Dextrose IVPB 100 mls/hr Q8H-IV GERARDO Administration Protocol Insulin Aspart 1 vial 01/16/17 11:00 Novolog Vial Sliding Scale - SQ ACHS GERARDO Protocol Metoprolol Succinate 50 mg 01/15/17 10:00 01/16/17 10:32 Toprol Xl - PO 50 mg DAILY GERARDO Administration Oxycodone HCl 5 mg 01/15/17 10:31 01/15/17 13:40 Roxicodone - PO 5 mg Q6H PRN Administration PAIN ASSESSMENT/PLAN: Patient is a 61 year old male with a significant medical history of hypertension , hyperlipidemia, diabetes and right great toe amputation. 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 Patient reports having diabetic ulcer's in the past, with amputation of his right great toe. Patient denies fever, chills or shortness of breath. Imagin01/15/2017: Vascular lower ext. ultrasound pending ID: Left second diabetic toe ulceration and cellulitis, +slough - acute on chronic Assessment/Plan: Left foot 2nd toe with discoloration, anterior toe diabetic ulcer, no palpable pulses to left foot, but foot is warm to touch on Santyl daily Started on Zosyn (01/15 - ) by ID WBC within normal limits, remains afebrile Multibacterial positive from his wound cx Blood and urine cultures negative to date Seen by vascular, vascular study pending Distal flow to be evaluated May need amputation vs. arterial bypass for limb salvage Cardiology: Hypertension - chronic Assessment/Plan: On Metoprolol 50mg daily, HCTZ on hold /2 to renal fx Monitor BP Hyperlipidemia Assessment/Plan: On Lipitor Endocrine: Diabetes Mellitus Assessment/Plan: Novolog sliding scale Monitor BGMs Renal: CHARLES - Assessment/Plan: Renal function now stable continue to hold HCTZ F.E.N. Fluids: NS @ 75cc/hr Electrolytes: monitor lytes Nutrition: diabetic diet Prophylaxis: DVT Prophy: Heparin GI: Protonix 40mg daily Dispositon: Requires inpatient hospitalization. Full Code. Visit type - Emergency Visit Emergency Visit: Yes ED Registration Date: 01/14/17 Care time: The patient presented to the Emergency Department on the above date and was hospitalized for further evaluation of their emergent condition. - New Patient This patient is new to me today: No - Critical Care Critical Care patient: No - Discharge Referral Referred to [facility] Med P.C.: No
--- NOTE | 2017-01-16 12:53 | PN ---
Progress Note, Physician History of Present Illness: patient stable no new issues awaiting for final plan to be in place - Current Medication List Current Medications: Active Medications Aspirin (Asa -) 81 mg PO DAILY [facility] Last Admin: 01/16/17 10:32 Dose: 81 mg Atorvastatin Calcium (Lipitor -) 40 mg PO HS [facility] Last Admin: 01/15/17 21:21 Dose: 40 mg Clopidogrel Bisulfate (Plavix -) 75 mg PO DAILY [facility] Last Admin: 01/16/17 10:32 Dose: 75 mg Collagenase (Santyl -) 1 applic TP DAILY [facility] Last Admin: 01/15/17 09:19 Dose: 1 applic Heparin Sodium (Porcine) (Heparin -) 5,000 unit SQ TID [facility] Last Admin: 01/16/17 06:16 Dose: 5,000 unit Sodium Chloride (Normal Saline -) 1,000 mls @ 75 mls/hr IV ASDIR [facility] Last Admin: 01/16/17 06:17 Dose: 75 mls/hr Piperacillin Sod/Tazobactam (Sod 3.375 gm/ Dextrose) 50 mls @ 100 mls/hr IVPB Q8H-IV [facility] PRN Reason: Protocol Last Admin: 01/16/17 10:32 Dose: 100 mls/hr Insulin Aspart (Novolog Vial Sliding Scale -) 1 vial SQ ACHS [facility] PRN Reason: Protocol Last Admin: 01/16/17 11:48 Dose: 4 units Metoprolol Succinate (Toprol Xl -) 50 mg PO DAILY [facility] Last Admin: 01/16/17 10:32 Dose: 50 mg Oxycodone HCl (Roxicodone -) 5 mg PO Q6H PRN PRN Reason: PAIN Last Admin: 01/15/17 13:40 Dose: 5 mg - Objective Vital Signs: Vital Signs Temperature 97.4 F L 01/16/17 06:00 Pulse Rate 88 01/16/17 12:00 Respiratory Rate 16 01/16/17 12:00 Blood Pressure 140/90 01/16/17 12:00 O2 Sat by Pulse Oximetry (%) 100 01/15/17 21:00 Constitutional: Yes: No Distress, Calm Cardiovascular: Yes: Regular Rate and Rhythm Respiratory: Yes: Regular, CTA Bilaterally Gastrointestinal: Yes: Normal Bowel Sounds, Soft Musculoskeletal: Yes: Other Extremities: Yes: Other Wound/Incision: Yes: Dressing Dry and Intact Neurological: Yes: Alert, Oriented Psychiatric: Yes: Alert, Oriented Labs: CBC, BMP 01/16/17 07:30 01/16/17 07:30 INR, PTT INR 1.12 (0.82-1.09) 01/14/17 20:55 Assessment/Plan Problem List - Problem (1) Osteomyelitis Code(s): M86.9 - OSTEOMYELITIS, UNSPECIFIED (2) Diabetic foot Code(s): E11.8 - TYPE 2 DIABETES MELLITUS WITH UNSPECIFIED COMPLICATIONS (3) Diabetes Code(s): E11.9 - TYPE 2 DIABETES MELLITUS WITHOUT COMPLICATIONS (4) Hypertension Code(s): I10 - ESSENTIAL (PRIMARY) HYPERTENSION (5) HLD (hyperlipidemia) Code(s): E78.5 - HYPERLIPIDEMIA, UNSPECIFIED this patient has been receiving hyperbaric for couple of weeks plan continue abx continue to monitor await for final plan rest as per primary
[2017-01-16] MEDS: COLLAGENASE CLOSTRIDIUM HIST. 30 GRAMS TUBE TP SCH (14:10)
[2017-01-16] MEDS: ATORVASTATIN CA 40 MG TABLET (FP) PO SCH (21:11)
[2017-01-17] MEDS ORDERED: DEXTROSE 5%-WATER - 50 ML IVPB ONE ×3 (01:13→16:41)
[2017-01-17] MEDS ORDERED: PIPERACILLIN/TAZOBACTAM 3.375 GM VIAL IVPB ONE ×3 (01:13→16:41)
[2017-01-17] MEDS: PIPERACILLIN/TAZOB 3.375 GM 3.375 GM in DEXTROSE 5%-WATER - 50 ML IVPB SCH ×3 (01:15→17:30)
[2017-01-17] MEDS: HEPARIN NA (PORCINE) 5,000 UNITS/ML 1ML VIAL SQ SCH ×3 (06:23→21:17)
[2017-01-17] MEDS: INSULIN SLIDING SCALE (NOVOLOG) 1 VIAL SQ SCH ×4 (06:24→21:16)
[2017-01-17 08:02] LABS: EOSINOPHIL 1.6 % (0-4.5); MCH 26.5 pg (25.7-33.7); MCHC 32.8 g/dl (32.0-35.9); MEAN CELL VOLUME 80.9 fl (80-96); MEAN PLT VOLUME 7.7 fl (7.5-11.1); NEUTROPHILS 68.7 % (42.8-82.8); PLATELET COUNT 378 K/MM3 (134-434); WHITE BLOOD COUNT 8.5 K/mm3 (4.0-10.0)
[2017-01-17 08:30] LABS: ALBUMIN 2.9 g/dl (3.4-5.0); ALK PHOS 71 U/L (45-117); ANION GAP 11 (8-16); BILIRUBIN,TOTAL 0.6 mg/dL (0.2-1.0); CALCIUM 8.8 mg/dL (8.5-10.1); CO2 23 mmol/L (21-32); CREATININE 1.1 mg/dL (0.7-1.3); GLUCOSE,RANDOM 141 mg/dL (74-106); SGOT/AST 9 U/L (15-37); SGPT/ALT 13 U/L (12-78); TOT PROT 7.1 g/dl (6.4-8.2)
[2017-01-17] MEDS: CLOPIDOGREL BISULFATE 75 MG TABLET (FP) PO SCH (11:04)
[2017-01-17] MEDS: METOPROLOL SUCCINATE 50 MG TAB.SR.24H (FP) PO SCH (11:04)
[2017-01-17] MEDS: ASPIRIN 81 MG CHEWABLE TABLETS PO SCH (11:04)
[2017-01-17] MEDS: COLLAGENASE CLOSTRIDIUM HIST. 30 GRAMS TUBE TP SCH (11:06)
--- NOTE | 2017-01-17 11:46 | PN ---
Physical Exam: SUBJECTIVE: Patient seen and examined at the bedside. He denies any chest pain, foot discomfort or shortness of breath. I spoke to patient's primary RN and reviewed nurses notes regarding patient episodes of angry outbursts directed at our staff. When I attempted to speak to him about this outburst or to further investigate, he refused to speak to me about it further. States "I feel OK, lets talk about how long I will be in here and about my foot ". When I again asked him, he refused to talk to me further and again re-directed the conversation. Consulted psyche. OBJECTIVE: Vital Signs Period Temp Pulse Resp BP Sys/Herron Pulse Ox Last 24 Hr 97.3 F-98.4 F 80-91 16-20 127-142/65-90 100 GENERAL: Awake, alert, and fully oriented, in no acute distress. HEAD: Normal with no signs of trauma. EYES: Pupils equal, round and reactive to light, extraocular movements intact, sclera anicteric, conjunctiva clear. No lid lag. EARS, NOSE, THROAT: Ears normal, nares patent, oropharynx clear without exudates. Moist mucous membranes. NECK: Normal range of motion, supple without lymphadenopathy, JVD, or masses. LUNGS: Breath sounds equal, clear to auscultation bilaterally. No wheezes, and no crackles. No accessory muscle use. HEART: Regular rate and rhythm ABDOMEN: Soft, nontender, not distended, normoactive bowel sounds, no guarding, no rebound, no masses. No hepatomegaly or splenomegaly. MUSCULOSKELETAL: Normal range of motion at all joints. No bony deformities or tenderness. No CVA tenderness. LOWER EXTREMITIES: +3 pitting edema of right leg>foot, +3 pitting edema of left leg >foot. +diabetic discolored ulceration on left second toe, amputation of right foot great toe. NEUROLOGICAL: Normal speech. Gait not observed. PSYCHIATRIC: Cooperative. Good eye contact. Appropriate mood and affect. Laboratory Results - last 24 hr 01/16/17 01/16/17 01/17/17 17:08 21:09 06:22 WBC RBC Hgb Hct MCV MCH MCHC RDW Plt Count MPV Neutrophils % Lymphocytes % Monocytes % Eosinophils % Basophils % Sodium Potassium Chloride Carbon Dioxide Anion Gap BUN Creatinine Creat Clearance w eGFR POC Glucometer 130 198 143 Random Glucose Calcium Total Bilirubin AST ALT Alkaline Phosphatase Total Protein Albumin 08/13/17 08/13/17 08/13/17 06:30 06:30 11:04 WBC 8.5 RBC 3.84 L Hgb 10.2 L Hct 31.1 L MCV 80.9 MCH 26.5 MCHC 32.8 RDW 14.0 Plt Count 378 MPV 7.7 Neutrophils % 68.7 Lymphocytes % 19.7 Monocytes % 9.0 Eosinophils % 1.6 Basophils % 1.0 Sodium 139 Potassium 4.1 Chloride 105 Carbon Dioxide 23 Anion Gap 11 BUN 16 Creatinine 1.1 Creat Clearance w eGFR > 60 POC Glucometer 210 Random Glucose 141 H Calcium 8.8 Total Bilirubin 0.6 AST 9 L ALT 13 Alkaline Phosphatase 71 Total Protein 7.1 Albumin 2.9 L Active Medications Generic Name Dose Route Start Last Admin Trade Name Freq PRN Reason Stop Dose Admin Aspirin 81 mg 01/15/17 10:00 01/17/17 11:04 Asa - PO 81 mg DAILY GERARDO Administration Atorvastatin Calcium 40 mg 01/15/17 22:00 01/16/17 21:11 Lipitor - PO 40 mg HS GERARDO Administration Clopidogrel Bisulfate 75 mg 01/15/17 10:00 01/17/17 11:04 Plavix - PO 75 mg DAILY GERARDO Administration Collagenase 1 applic 01/15/17 10:00 01/17/17 11:06 Santyl - TP 1 applic DAILY GERARDO Administration Heparin Sodium (Porcine) 5,000 unit 01/14/17 23:45 01/17/17 06:23 Heparin - SQ 5,000 unit TID GERARDO Administration Piperacillin Sod/Tazobactam 50 mls @ 100 mls/hr 01/15/17 21:00 01/17/17 11:04 Sod 3.375 gm/ Dextrose IVPB 100 mls/hr Q8H-IV GERARDO Administration Protocol Insulin Aspart 1 vial 01/16/17 11:00 01/17/17 11:06 Novolog Vial Sliding Scale - SQ 4 units ACHS GERARDO Administration Protocol Metoprolol Succinate 50 mg 01/15/17 10:00 01/17/17 11:04 Toprol Xl - PO 50 mg DAILY GERARDO Administration Oxycodone HCl 5 mg 01/15/17 10:31 01/15/17 13:40 Roxicodone - PO 5 mg Q6H PRN Administration PAIN ASSESSMENT/PLAN: Patient is a 61 year old male with a significant medical history of hypertension , hyperlipidemia, diabetes and right great toe amputation. 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 Patient reports having diabetic ulcer's in the past, with amputation of his right great toe. Patient denies fever, chills or shortness of breath. Imagin01/15/2017: Vascular lower ext. ultrasound pending ID: Left second diabetic toe ulceration and cellulitis, +slough - acute on chronic Assessment/Plan: Left foot 2nd toe with discoloration, anterior toe diabetic ulcer, no palpable pulses to left foot, but foot is warm to touch on Santyl daily Started on Zosyn (01/15 - ) by ID WBC within normal limits, remains afebrile Multibacterial positive from his wound cx Blood and urine cultures negative to date For angiogram in a.m. Cardiology: Hypertension - chronic Assessment/Plan: On Metoprolol 50mg daily, HCTZ on hold 2/2 to renal fx Monitor BP Hyperlipidemia Assessment/Plan: On Lipitor Endocrine: Diabetes Mellitus Assessment/Plan: Novolog sliding scale Monitor BGMs Renal: CHARLES - Assessment/Plan: Renal function now stable continue to hold HCTZ F.E.N. Fluids: tolerating PO Electrolytes: monitor lytes Nutrition: diabetic diet Prophylaxis: DVT Prophy: Heparin on hold at midnight for angiogram GI: Protonix 40mg daily Dispositon: Requires inpatient hospitalization. Full Code. Visit type - Emergency Visit Emergency Visit: Yes ED Registration Date: 01/14/17 Care time: The patient presented to the Emergency Department on the above date and was hospitalized for further evaluation of their emergent condition. - New Patient This patient is new to me today: No - Critical Care Critical Care patient: No - Discharge Referral Referred to [facility] Med P.C.: No
--- NOTE | 2017-01-17 12:37 | PN ---
Progress Note, Physician History of Present Illness: doing well no new events tolerating abx - Current Medication List Current Medications: Active Medications Aspirin (Asa -) 81 mg PO DAILY [facility] Last Admin: 01/17/17 11:04 Dose: 81 mg Atorvastatin Calcium (Lipitor -) 40 mg PO HS [facility] Last Admin: 01/16/17 21:11 Dose: 40 mg Clopidogrel Bisulfate (Plavix -) 75 mg PO DAILY [facility] Last Admin: 01/17/17 11:04 Dose: 75 mg Collagenase (Santyl -) 1 applic TP DAILY [facility] Last Admin: 01/17/17 11:06 Dose: 1 applic Heparin Sodium (Porcine) (Heparin -) 5,000 unit SQ TID [facility] Last Admin: 01/17/17 06:23 Dose: 5,000 unit Piperacillin Sod/Tazobactam (Sod 3.375 gm/ Dextrose) 50 mls @ 100 mls/hr IVPB Q8H-IV [facility] PRN Reason: Protocol Last Admin: 01/17/17 11:04 Dose: 100 mls/hr Insulin Aspart (Novolog Vial Sliding Scale -) 1 vial SQ ACHS [facility] PRN Reason: Protocol Last Admin: 01/17/17 11:06 Dose: 4 units Metoprolol Succinate (Toprol Xl -) 50 mg PO DAILY [facility] Last Admin: 01/17/17 11:04 Dose: 50 mg Oxycodone HCl (Roxicodone -) 5 mg PO Q6H PRN PRN Reason: PAIN Last Admin: 01/15/17 13:40 Dose: 5 mg - Objective Vital Signs: Vital Signs Temperature 97.8 F 01/17/17 05:30 Pulse Rate 83 01/17/17 05:30 Respiratory Rate 18 01/17/17 05:30 Blood Pressure 136/78 01/17/17 05:30 O2 Sat by Pulse Oximetry (%) 100 01/16/17 21:00 Constitutional: Yes: No Distress, Calm Cardiovascular: Yes: Regular Rate and Rhythm Respiratory: Yes: Regular, CTA Bilaterally Gastrointestinal: Yes: Normal Bowel Sounds, Soft Musculoskeletal: Yes: WNL Extremities: Yes: Other Neurological: Yes: Alert, Oriented Psychiatric: Yes: Alert, Oriented Labs: CBC, BMP 01/17/17 06:30 01/17/17 06:30 INR, PTT INR 1.12 (0.82-1.09) 01/14/17 20:55 Assessment/Plan Problem List - Problem (1) Osteomyelitis Code(s): M86.9 - OSTEOMYELITIS, UNSPECIFIED (2) Diabetic foot Code(s): E11.8 - TYPE 2 DIABETES MELLITUS WITH UNSPECIFIED COMPLICATIONS (3) Diabetes Code(s): E11.9 - TYPE 2 DIABETES MELLITUS WITHOUT COMPLICATIONS (4) Hypertension Code(s): I10 - ESSENTIAL (PRIMARY) HYPERTENSION (5) HLD (hyperlipidemia) Code(s): E78.5 - HYPERLIPIDEMIA, UNSPECIFIED this patient has been receiving hyperbaric for couple of weeks plan continue abx continue to monitor await for final plan rest as per primary podiatry to see the patient
--- NOTE | 2017-01-17 14:23 | PN ---
Progress Note (short form) - Note Progress Note: No new complaints Doppler shows severe distal flow deficit to left foot. Old angio shows plantar artery runoff via a disease PT. Revascularization of this vessel may improve flow to foot and allow healing of a toe amputation. I have discussed proceeding with angiogram tomorrow and patient agrees to proceed. Problem List - Problems (1) Osteomyelitis Code(s): M86.9 - OSTEOMYELITIS, UNSPECIFIED Qualifiers: Osteomyelitis type: chronic, with draining sinus Osteomyelitis location : foot Laterality: left Qualified Code(s): M86.472 - Chronic osteomyelitis with draining sinus, left ankle and foot (2) Ischemic foot Code(s): I99.8 - OTHER DISORDER OF CIRCULATORY SYSTEM
--- NOTE | 2017-01-17 15:13 | CON.PSY ---
Psychiatry Consult Chief Complaint: Patient has been displaying aggressive behaviour toward staff. No psych History. Patient says I am a Patient5 here, I will yell if I dont like somethings. Symptoms: reports: Inability to Control Temper - Previous Psychiatric Treatment Outpatient: None Inpatient: None - Previous Substance Abuse Treatment Outpatient: None Inpatient: None - Current Medications Current Medications: Active Medications Aspirin (Asa -) 81 mg PO DAILY [facility] Last Admin: 01/17/17 11:04 Dose: 81 mg Atorvastatin Calcium (Lipitor -) 40 mg PO HS [facility] Last Admin: 01/16/17 21:11 Dose: 40 mg Clopidogrel Bisulfate (Plavix -) 75 mg PO DAILY [facility] Last Admin: 01/17/17 11:04 Dose: 75 mg Collagenase (Santyl -) 1 applic TP DAILY [facility] Last Admin: 01/17/17 11:06 Dose: 1 applic Heparin Sodium (Porcine) (Heparin -) 5,000 unit SQ TID [facility] Last Admin: 01/17/17 06:23 Dose: 5,000 unit Piperacillin Sod/Tazobactam (Sod 3.375 gm/ Dextrose) 50 mls @ 100 mls/hr IVPB Q8H-IV [facility] PRN Reason: Protocol Last Admin: 01/17/17 11:04 Dose: 100 mls/hr Insulin Aspart (Novolog Vial Sliding Scale -) 1 vial SQ ACHS [facility] PRN Reason: Protocol Last Admin: 01/17/17 11:06 Dose: 4 units Metoprolol Succinate (Toprol Xl -) 50 mg PO DAILY [facility] Last Admin: 01/17/17 11:04 Dose: 50 mg Oxycodone HCl (Roxicodone -) 5 mg PO Q6H PRN PRN Reason: PAIN Last Admin: 01/15/17 13:40 Dose: 5 mg - Allergies Allergies: Allergies Allergy/AdvReac Type Severity Reaction Status Date / Time No Known Allergies Allergy Verified 01/14/17 20:02 - Current Living Status Usual Living Arrangement: With Spouse - Current Mental Status Evaluation Appearance: Well Groomed Attitude: Guarded - Affect Affect: Full Range Appropriateness: Appropriate to Content - Mood Mood: Euthymic - Speech/Language Expressive: Coherent - Psychomotor Activity Psychomotor Activity: Normal - Thought Process Thought Process: Intact - Thought Content Hallucinations: Absent Delusions: Absent - Self Perception Self Perception: No Impairment - Cognition Attention: Alert Orientation: Time Memory, Immediate Recall: Intact Memory, Short Term: 3/3 Memory, Remote with Promptin/3 - Concentration Serial Sevens Intact: No Simple Calculations Intact: No - Abstraction Judgement: Minimally Impaired - Insight Insight: Intact - Impulse Control Impulse Control: Minimally Impaired - Suicidal Ideation Suicidal Ideation: No - Homicidal Ideation Homicidal Ideation: No Assessment/Plan 1)No Psych Meds, Pateint refuses any Psych help. Does nt think he needs any. 2) Discharge when Medically stable.
[2017-01-17] MEDS: ATORVASTATIN CA 40 MG TABLET (FP) PO SCH (21:15)
[2017-01-17] MEDS: oxyCODONE HCL 5 MG TABLET PO PRN (21:18)
[2017-01-18] MEDS ORDERED: PIPERACILLIN/TAZOBACTAM 3.375 GM VIAL IVPB ONE ×3 (00:50→18:16)
[2017-01-18] MEDS ORDERED: DEXTROSE 5%-WATER - 50 ML IVPB ONE ×3 (00:51→18:16)
[2017-01-18] MEDS: PIPERACILLIN/TAZOB 3.375 GM 3.375 GM in DEXTROSE 5%-WATER - 50 ML IVPB SCH ×3 (01:09→19:06)
[2017-01-18] MEDS: INSULIN SLIDING SCALE (NOVOLOG) 1 VIAL SQ SCH ×4 (06:28→21:15)
[2017-01-18] MEDS: oxyCODONE HCL 5 MG TABLET PO PRN (08:05)
[2017-01-18 08:28] LABS: BASOPHIL 0.9 % (0-2.0); EOSINOPHIL 1.8 % (0-4.5); MCHC 32.4 g/dl (32.0-35.9); MEAN CELL VOLUME 80.4 fl (80-96); MEAN PLT VOLUME 8.2 fl (7.5-11.1); NEUTROPHILS 65.2 % (42.8-82.8); PLATELET COUNT 411 K/MM3 (134-434); RDW 14.2 % (11.9-15.9); WHITE BLOOD COUNT 8.5 K/mm3 (4.0-10.0)
[2017-01-18 08:57] LABS: ALBUMIN 3.2 g/dl (3.4-5.0); ANION GAP 11 (8-16); CALCIUM 8.8 mg/dL (8.5-10.1); CO2 22 mmol/L (21-32); GLUCOSE,RANDOM 132 mg/dL (74-106); SGOT/AST 9 U/L (15-37); SGPT/ALT 15 U/L (12-78)
[2017-01-18 08:58] LABS: ALK PHOS 76 U/L (45-117); BILIRUBIN,TOTAL 0.6 mg/dL (0.2-1.0); CREATININE 1.2 mg/dL (0.7-1.3); TOT PROT 7.8 g/dl (6.4-8.2)
[2017-01-18] MEDS: ASPIRIN 81 MG CHEWABLE TABLETS PO SCH (09:16)
[2017-01-18] MEDS: CLOPIDOGREL BISULFATE 75 MG TABLET (FP) PO SCH ×2 (09:16→19:04)
[2017-01-18] MEDS: METOPROLOL SUCCINATE 50 MG TAB.SR.24H (FP) PO SCH (09:16)
--- NOTE | 2017-01-18 14:02 | PN ---
Physical Exam: SUBJECTIVE: Patient seen and examined at the bedside. States pain is controlled with the Oxycodone. Denies any other discomfort. OBJECTIVE: Vital Signs Period Temp Pulse Resp BP Sys/Herron Pulse Ox Last 24 Hr 97.2 F-98.3 F 80-94 20-20 122-153/69-95 100 GENERAL: Awake, alert, and fully oriented, in no acute distress. HEAD: Normal with no signs of trauma. EYES: Pupils equal, round and reactive to light, extraocular movements intact, sclera anicteric, conjunctiva clear. No lid lag. EARS, NOSE, THROAT: Ears normal, nares patent, oropharynx clear without exudates. Moist mucous membranes. NECK: Normal range of motion, supple without lymphadenopathy, JVD, or masses. LUNGS: Breath sounds equal, clear to auscultation bilaterally. No wheezes, and no crackles. No accessory muscle use. HEART: Regular rate and rhythm ABDOMEN: Soft, nontender, not distended, normoactive bowel sounds, no guarding, no rebound, no masses. No hepatomegaly or splenomegaly. MUSCULOSKELETAL: Normal range of motion at all joints. No bony deformities or tenderness. No CVA tenderness. LOWER EXTREMITIES: +3 pitting edema of right leg>foot, +3 pitting edema of left leg >foot. +diabetic discolored ulceration on left second toe, amputation of right foot great toe. NEUROLOGICAL: Normal speech. Gait not observed. PSYCHIATRIC: Cooperative. Good eye contact. Appropriate mood and affect. Laboratory Results - last 24 hr 01/17/17 01/17/17 01/18/17 17:01 20:50 05:20 WBC RBC Hgb Hct MCV MCH MCHC RDW Plt Count MPV Neutrophils % Lymphocytes % Monocytes % Eosinophils % Basophils % Sodium Potassium Chloride Carbon Dioxide Anion Gap BUN Creatinine Creat Clearance w eGFR POC Glucometer 168 179 127 Random Glucose Calcium Total Bilirubin AST ALT Alkaline Phosphatase Total Protein Albumin 01/18/17 01/18/17 01/18/17 07:45 07:45 11:48 WBC 8.5 RBC 4.08 Hgb 10.6 L Hct 32.8 L MCV 80.4 MCH 26.0 MCHC 32.4 RDW 14.2 Plt Count 411 MPV 8.2 Neutrophils % 65.2 Lymphocytes % 24.1 D Monocytes % 8.0 Eosinophils % 1.8 Basophils % 0.9 Sodium 136 Potassium 4.4 Chloride 103 Carbon Dioxide 22 Anion Gap 11 BUN 16 Creatinine 1.2 Creat Clearance w eGFR > 60 POC Glucometer 135 Random Glucose 132 H Calcium 8.8 Total Bilirubin 0.6 AST 9 L ALT 15 Alkaline Phosphatase 76 Total Protein 7.8 Albumin 3.2 L Active Medications Generic Name Dose Route Start Last Admin Trade Name Mkq PRN Reason Stop Dose Admin Aspirin 81 mg 01/15/17 10:00 01/18/17 09:16 Asa - PO Not Given DAILY GERARDO Atorvastatin Calcium 40 mg 01/15/17 22:00 01/17/17 21:15 Lipitor - PO 40 mg HS GERARDO Administration Clopidogrel Bisulfate 75 mg 01/15/17 10:00 01/18/17 09:16 Plavix - PO Not Given DAILY GERARDO Collagenase 1 applic 01/15/17 10:00 01/17/17 11:06 Santyl - TP 1 applic DAILY GERARDO Administration Piperacillin Sod/Tazobactam 50 mls @ 100 mls/hr 01/15/17 21:00 01/18/17 09:16 Sod 3.375 gm/ Dextrose IVPB 100 mls/hr Q8H-IV GERARDO Administration Protocol Insulin Aspart 1 vial 01/16/17 11:00 01/18/17 12:31 Novolog Vial Sliding Scale - SQ Not Given ACHS GERARDO Protocol Metoprolol Succinate 50 mg 01/15/17 10:00 01/18/17 09:16 Toprol Xl - PO 50 mg DAILY GERARDO Administration ASSESSMENT/PLAN: Patient is a 61 year old male with a significant medical history of hypertension , hyperlipidemia, diabetes and right great toe amputation. 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 Patient reports having diabetic ulcer's in the past, with amputation of his right great toe. Patient denies fever, chills or shortness of breath. Imagin01/15/2017: Vascular lower ext. ultrasound pending ID: Left second diabetic toe ulceration and cellulitis, +slough - acute on chronic Assessment/Plan: Left foot 2nd toe with discoloration, anterior toe diabetic ulcer, no palpable pulses to left foot, but foot is warm to touch on Santyl daily, Started on Zosyn (01/15 - ) by ID WBC within normal limits, remains afebrile Multibacterial positive from his wound cx Blood and urine cultures negative to date For angiogram in today Cardiology: Hypertension - chronic Assessment/Plan: On Metoprolol 50mg daily, HCTZ on hold 2/2 to renal fx Monitor BP Hyperlipidemiav - chronic Assessment/Plan: On Lipitor Endocrine: Diabetes Mellitus - chronic Assessment/Plan: Novolog sliding scale Monitor BGMs Renal: CHARLES - Assessment/Plan: Renal function now stable continue to hold HCTZ F.E.N. Fluids: tolerating PO Electrolytes: monitor lytes Nutrition: diabetic diet Prophylaxis: DVT Prophy: Heparin on hold, restart after angiogram GI: Protonix 40mg daily Dispositon: Requires inpatient hospitalization. Full Code. Visit type - Emergency Visit Emergency Visit: Yes ED Registration Date: 01/14/17 Care time: The patient presented to the Emergency Department on the above date and was hospitalized for further evaluation of their emergent condition. - New Patient This patient is new to me today: No - Critical Care Critical Care patient: No - Discharge Referral Referred to [facility] Med [facility].C.: No
[2017-01-18] MEDS ORDERED: HEPARIN NA (PORCINE) 5,000 UNITS/ML 1ML VIAL ONE ×2 (14:10→16:25)
[2017-01-18] MEDS ORDERED: LIDOCAINE HCL 1%, 10 MG/ML (20ML VIAL) ONE (14:10)
--- NOTE | 2017-01-18 15:22 | PN ---
Progress Note, Physician History of Present Illness: doing well no new events tolerating abx - Current Medication List Current Medications: Active Medications Aspirin (Asa -) 81 mg PO DAILY [facility] Last Admin: 01/18/17 09:16 Dose: Not Given Atorvastatin Calcium (Lipitor -) 40 mg PO HS [facility] Last Admin: 01/17/17 21:15 Dose: 40 mg Clopidogrel Bisulfate (Plavix -) 75 mg PO DAILY [facility] Last Admin: 01/18/17 09:16 Dose: Not Given Collagenase (Santyl -) 1 applic TP DAILY [facility] Last Admin: 01/17/17 11:06 Dose: 1 applic Piperacillin Sod/Tazobactam (Sod 3.375 gm/ Dextrose) 50 mls @ 100 mls/hr IVPB Q8H-IV [facility] PRN Reason: Protocol Last Admin: 01/18/17 09:16 Dose: 100 mls/hr Insulin Aspart (Novolog Vial Sliding Scale -) 1 vial SQ ACHS [facility] PRN Reason: Protocol Last Admin: 01/18/17 12:31 Dose: Not Given Metoprolol Succinate (Toprol Xl -) 50 mg PO DAILY [facility] Last Admin: 01/18/17 09:16 Dose: 50 mg - Objective Vital Signs: Vital Signs Temperature 98.6 F 01/18/17 14:40 Pulse Rate 85 01/18/17 14:40 Respiratory Rate 20 01/18/17 09:00 Blood Pressure 133/88 01/18/17 14:40 O2 Sat by Pulse Oximetry (%) 100 01/17/17 21:00 Constitutional: Yes: No Distress, Calm Cardiovascular: Yes: Regular Rate and Rhythm Respiratory: Yes: Regular, CTA Bilaterally Gastrointestinal: Yes: Normal Bowel Sounds, Soft Musculoskeletal: Yes: WNL Extremities: Yes: Other Neurological: Yes: Alert, Oriented Psychiatric: Yes: Alert, Oriented Labs: CBC, BMP 01/18/17 07:45 01/18/17 07:45 INR, PTT INR 1.12 (0.82-1.09) 01/14/17 20:55 Assessment/Plan Problem List - Problem (1) Osteomyelitis Code(s): M86.9 - OSTEOMYELITIS, UNSPECIFIED (2) Diabetic foot Code(s): E11.8 - TYPE 2 DIABETES MELLITUS WITH UNSPECIFIED COMPLICATIONS (3) Diabetes Code(s): E11.9 - TYPE 2 DIABETES MELLITUS WITHOUT COMPLICATIONS (4) Hypertension Code(s): I10 - ESSENTIAL (PRIMARY) HYPERTENSION (5) HLD (hyperlipidemia) Code(s): E78.5 - HYPERLIPIDEMIA, UNSPECIFIED this patient has been receiving hyperbaric for couple of weeks plan continue abx continue as per primary
[2017-01-18] MEDS ORDERED: MIDAZOLAM HCL 2 MG/2 ML SINGLE DOSE VIAL ONE ×2 (15:52)
[2017-01-18] MEDS ORDERED: LIDOCAINE HCL 1%, 10 MG/ML (50 mL VIAL) IJ ONE ×3 (16:08)
[2017-01-18] MEDS ORDERED: ONDANSETRON 4 MG/2 ML VIAL IVPUSH PRN ×2 (17:55→18:30)
[2017-01-18] MEDS ORDERED: oxyCODONE HCL 5 MG TABLET PO PRN ×2 (17:55→18:30)
[2017-01-18] MEDS ORDERED: LACTATED RINGERS SOLUTION 1,000 ML IV SCH (18:00)
--- NOTE | 2017-01-18 18:05 | OP ---
Operative Note - Note: Operative Date: 01/18/17 Pre-Operative Diagnosis: Gangrene left 2nd toe Operation: revascularization left posterior tibial artery with atherectomy and angioplasty Findings: Patent left femoral and popliteal arteries. Severe stensois and segmental occlusion of BUSINESS OBJECTS ARCHITECT with reconstitution of distal BUSINESS OBJECTS ARCHITECT and runoff to plantar vessels. Occlusion of peroneal and anterior tibial arteries. Post-Operative Diagnosis: Same as Pre-op Surgeon: Ty Florez Anesthesiologist/WILDLIFE REFUGE SPECIALIST: Yakelin Krishnamurthy Anesthesia: Fractional
[2017-01-18] MEDS: ceFAZolin SODIUM 1 GM VIAL IVPB ONE ×2 (18:30)
[2017-01-18] MEDS ORDERED: CLOPIDOGREL BISULFATE 75 MG TABLET (FP) ONE (18:39)
[2017-01-18] MEDS: COLLAGENASE CLOSTRIDIUM HIST. 30 GRAMS TUBE TP SCH (19:06)
[2017-01-18] MEDS: ATORVASTATIN CA 40 MG TABLET (FP) PO SCH (21:15)
[2017-01-18] MEDS: LACTATED RINGERS SOLUTION 1,000 ML IV SCH (23:02)
[2017-01-19] MEDS ORDERED: PIPERACILLIN/TAZOBACTAM 3.375 GM VIAL IVPB ONE ×3 (01:17→18:07)
[2017-01-19] MEDS ORDERED: DEXTROSE 5%-WATER - 50 ML IVPB ONE ×3 (01:18→18:07)
[2017-01-19] MEDS: PIPERACILLIN/TAZOB 3.375 GM 3.375 GM in DEXTROSE 5%-WATER - 50 ML IVPB SCH ×3 (01:23→18:49)
[2017-01-19] MEDS ORDERED: PIPERACILLIN/TAZOB 3.375 GM 3.375 GM in DEXTROSE 5%-WATER 100 ML IVPB ONE (02:00)
[2017-01-19] MEDS: INSULIN SLIDING SCALE (NOVOLOG) 1 VIAL SQ SCH ×4 (06:18→21:19)
[2017-01-19 07:45] LABS: BASOPHIL 0.7 % (0-2.0); EOSINOPHIL 1.5 % (0-4.5); MCH 26.4 pg (25.7-33.7); MCHC 32.8 g/dl (32.0-35.9); MEAN CELL VOLUME 80.6 fl (80-96); MEAN PLT VOLUME 7.9 fl (7.5-11.1); NEUTROPHILS 69.5 % (42.8-82.8); PLATELET COUNT 333 K/MM3 (134-434); RDW 14.4 % (11.9-15.9); WHITE BLOOD COUNT 8.7 K/mm3 (4.0-10.0)
[2017-01-19 08:10] LABS: ALBUMIN 2.7 g/dl (3.4-5.0); ANION GAP 5 (8-16); CALCIUM 8.6 mg/dL (8.5-10.1); CO2 26 mmol/L (21-32); GLUCOSE,RANDOM 137 mg/dL (74-106)
[2017-01-19 08:16] LABS: ALK PHOS 69 U/L (45-117); BILIRUBIN,TOTAL 0.5 mg/dL (0.2-1.0); CREATININE 1.1 mg/dL (0.7-1.3); SGOT/AST 10 U/L (15-37); SGPT/ALT 14 U/L (12-78); TOT PROT 6.6 g/dl (6.4-8.2)
--- NOTE | 2017-01-19 08:28 | OP ---
DATE OF OPERATION: 01/18/2017 SURGEON: Ty Rosenberg MD PROCEDURE: Revascularization of left posterior tibial artery with atherectomy and angioplasty. PREOPERATIVE DIAGNOSIS: Gangrene of left 2nd toe. POSTOPERATIVE DIAGNOSIS: Gangrene of left 2nd toe. ANESTHESIA: Fractional. ANESTHESIOLOGIST: Dr. Krishnamurthy ANGIOGRAPHIC FINDINGS: The left femoral popliteal arteries were patent. There was severe calcified calcific disease of the tibial arteries with occlusion of the anterior tibia distal to its origin peroneal throughout its length and posterior tibial with severe stenosis and segmental occlusion down to the ankle. There was reconstitution of a distal posterior tibial artery at the ankle with runoff to the plantar arteries in the foot. OPERATIVE PROCEDURE: Following routine patient identification with side and site verification, intravenous sedation was established. The left groin was prepped with ChloraPrep. Real time duplex imaging was used to identify the left common femoral artery proximal to the bifurcation. Xylocaine 1% was infiltrated in the skin over the artery, and the artery was cannulated with a micropuncture needle. A wire was passed distally into the superficial femoral artery, and the needle was exchanged. An Amplatz wire was then passed through the catheter, and the catheter was exchanged for a 5-[place] sheath. Angiography was then performed with the above noted findings. The short sheath was removed, and a 6-[place]er x 55 cm sheath was advanced over the wire to the level of the mid popliteal artery. The patient was systemically heparinized. A V-18 wire was then used to catheterize the posterior tibial artery, and a Quick-Cross catheter was advanced over the wire for support. The wire and catheter were then advanced distally using road-mapping technique through the occlusions and into the plantar artery. The wire was removed, and confirmatory angiogram obtained through the catheter. A ViperWire was then advanced through the catheter into the plantar artery, and the catheter was removed. Rotational atherectomy with the Diamondback 1.25-mm crown was used throughout the posterior tibial artery at low, medium, and high speeds. The artery was then treated with balloons 2.0 mm, 2.5 mm on the distal vessel and 3.0 mm on the proximal artery. Completion imaging revealed a patent posterior tibial artery with no residual stenosis and brisk flow into the plantar arteries of the foot. The sheath was then removed over the Amplatz wire, and the arteriotomy closed with the Perclose device. Sterile dressing was applied, and the patient was taken to the recovery area in stable condition. TY ROSENBERG M.D. [id number]
[2017-01-19] MEDS: ASPIRIN 81 MG CHEWABLE TABLETS PO SCH (09:56)
[2017-01-19] MEDS: CLOPIDOGREL BISULFATE 75 MG TABLET (FP) PO SCH (09:56)
[2017-01-19] MEDS: METOPROLOL SUCCINATE 50 MG TAB.SR.24H (FP) PO SCH (09:56)
[2017-01-19] MEDS: COLLAGENASE CLOSTRIDIUM HIST. 30 GRAMS TUBE TP SCH (09:57)
--- NOTE | 2017-01-19 12:47 | PN ---
Progress Note (short form) - Note Progress Note: s/p left tibial revascularization. No c/o Foot warm. Patient agrees to proceed with toe amputation. OR Wednesday. Problem List - Problems (1) Osteomyelitis Code(s): M86.9 - OSTEOMYELITIS, UNSPECIFIED Qualifiers: Osteomyelitis type: chronic, with draining sinus Osteomyelitis location : foot Laterality: left Qualified Code(s): M86.472 - Chronic osteomyelitis with draining sinus, left ankle and foot (2) Ischemic foot Code(s): I99.8 - OTHER DISORDER OF CIRCULATORY SYSTEM
--- NOTE | 2017-01-19 14:02 | PN ---
Progress Note, Physician History of Present Illness: doing well no new events patient got his angio and stent placement plan is for amputation tomorrow - Current Medication List Current Medications: Active Medications Aspirin (Asa -) 81 mg PO DAILY [facility] Last Admin: 01/19/17 09:56 Dose: 81 mg Atorvastatin Calcium (Lipitor -) 40 mg PO HS [facility] Last Admin: 01/18/17 21:15 Dose: 40 mg Clopidogrel Bisulfate (Plavix -) 75 mg PO DAILY [facility] Last Admin: 01/19/17 09:56 Dose: 75 mg Collagenase (Santyl -) 1 applic TP DAILY [facility] Last Admin: 01/19/17 09:57 Dose: 1 applic Fentanyl (Sublimaze Injection -) 50 mcg IVPUSH [id number] PRN PRN Reason: PAIN Stop: 01/21/17 17:56 Lactated Ringer's (Lactated Ringers Solution) 1,000 mls @ 125 mls/hr IV ASDIR [facility] Last Admin: 01/18/17 23:02 Dose: Not Given Piperacillin Sod/Tazobactam (Sod 3.375 gm/ Dextrose) 50 mls @ 100 mls/hr IVPB Q8H-IV [facility] PRN Reason: Protocol Last Admin: 01/19/17 09:56 Dose: 100 mls/hr Insulin Aspart (Novolog Vial Sliding Scale -) 1 vial SQ ACHS [facility] PRN Reason: Protocol Last Admin: 01/19/17 11:38 Dose: 2 units Metoprolol Succinate (Toprol Xl -) 50 mg PO DAILY [facility] Last Admin: 01/19/17 09:56 Dose: 50 mg Oxycodone HCl (Roxicodone -) 10 mg PO Q4H PRN PRN Reason: SEVERE PAIN Stop: 01/19/17 17:54 Last Admin: 01/19/17 09:58 Dose: 10 mg - Objective Vital Signs: Vital Signs Temperature 97.4 F L 01/19/17 09:00 Pulse Rate 91 H 01/19/17 09:00 Respiratory Rate 20 01/19/17 09:00 Blood Pressure 134/76 01/19/17 09:00 O2 Sat by Pulse Oximetry (%) 100 01/18/17 19:51 Constitutional: Yes: No Distress, Calm Cardiovascular: Yes: Regular Rate and Rhythm Respiratory: Yes: Regular, CTA Bilaterally Gastrointestinal: Yes: Normal Bowel Sounds, Soft Musculoskeletal: Yes: Other Extremities: Yes: Other Neurological: Yes: Alert, Oriented Psychiatric: Yes: Alert, Oriented Labs: CBC, BMP 01/19/17 06:00 01/19/17 06:00 INR, PTT INR 1.12 (0.82-1.09) 01/14/17 20:55 Assessment/Plan Problem List - Problem (1) Osteomyelitis Code(s): M86.9 - OSTEOMYELITIS, UNSPECIFIED (2) Diabetic foot Code(s): E11.8 - TYPE 2 DIABETES MELLITUS WITH UNSPECIFIED COMPLICATIONS (3) Diabetes Code(s): E11.9 - TYPE 2 DIABETES MELLITUS WITHOUT COMPLICATIONS (4) Hypertension Code(s): I10 - ESSENTIAL (PRIMARY) HYPERTENSION (5) HLD (hyperlipidemia) Code(s): E78.5 - HYPERLIPIDEMIA, UNSPECIFIED this patient has been receiving hyperbaric for couple of weeks plan continue abx continue as per primary patient for amputation tomorrow please send margins to see if they are clear rest as per primary
--- NOTE | 2017-01-19 16:16 | PN ---
Physical Exam: SUBJECTIVE: Patient seen and examined. Denies any discomfort except for intermittent left foot pain relieved with Oxycodone. OBJECTIVE: No further behavioral disturbances reported NPO at midnight for planned toe amputation in a.m. Vital Signs Period Temp Pulse Resp BP Sys/Herron Pulse Ox Last 24 Hr 97.4 F-98.5 F 75-95 10-20 122-176/73-88 95-100 GENERAL: Awake, alert, and fully oriented, in no acute distress. HEAD: Normal with no signs of trauma. EYES: Pupils equal, round and reactive to light, extraocular movements intact, sclera anicteric, conjunctiva clear. No lid lag. EARS, NOSE, THROAT: Ears normal, nares patent, oropharynx clear without exudates. Moist mucous membranes. NECK: Normal range of motion, supple without lymphadenopathy, JVD, or masses. LUNGS: Breath sounds equal, clear to auscultation bilaterally. No wheezes, and no crackles. No accessory muscle use. HEART: Regular rate and rhythm ABDOMEN: Soft, nontender, not distended, normoactive bowel sounds, no guarding, no rebound, no masses. No hepatomegaly or splenomegaly. MUSCULOSKELETAL: Normal range of motion at all joints. No bony deformities or tenderness. No CVA tenderness. LOWER EXTREMITIES: +3 pitting edema of right leg>foot, +3 pitting edema of left leg >foot. +diabetic discolored ulceration on gangrenous left second toe, amputation of right foot great toe. NEUROLOGICAL: Normal speech. Gait not observed. PSYCHIATRIC: Cooperative. Good eye contact. Appropriate mood and affect. Laboratory Results - last 24 hr 01/18/17 01/18/17 01/19/17 18:18 21:13 06:00 WBC 8.7 RBC 3.79 L Hgb 10.0 L Hct 30.5 L MCV 80.6 MCH 26.4 MCHC 32.8 RDW 14.4 Plt Count 333 MPV 7.9 Neutrophils % 69.5 Lymphocytes % 19.7 Monocytes % 8.6 Eosinophils % 1.5 Basophils % 0.7 Sodium Potassium Chloride Carbon Dioxide Anion Gap BUN Creatinine Creat Clearance w eGFR POC Glucometer 128 269 Random Glucose Calcium Total Bilirubin AST ALT Alkaline Phosphatase Total Protein Albumin 01/19/17 01/19/17 01/19/17 06:00 06:17 11:34 WBC RBC Hgb Hct MCV MCH MCHC RDW Plt Count MPV Neutrophils % Lymphocytes % Monocytes % Eosinophils % Basophils % Sodium 137 Potassium 4.1 Chloride 106 Carbon Dioxide 26 Anion Gap 5 L BUN 13 Creatinine 1.1 Creat Clearance w eGFR > 60 POC Glucometer 144 194 Random Glucose 137 H Calcium 8.6 Total Bilirubin 0.5 AST 10 L ALT 14 Alkaline Phosphatase 69 Total Protein 6.6 Albumin 2.7 L Active Medications Generic Name Dose Route Start Last Admin Trade Name Freq PRN Reason Stop Dose Admin Aspirin 81 mg 01/19/17 10:00 01/19/17 09:56 Asa - PO 81 mg DAILY [facility] Administration Atorvastatin Calcium 40 mg 01/18/17 22:00 01/18/17 21:15 Lipitor - PO 40 mg HS [facility] Administration Clopidogrel Bisulfate 75 mg 01/19/17 10:00 01/19/17 09:56 Plavix - PO 75 mg DAILY [facility] Administration Collagenase 1 applic 01/19/17 10:00 01/19/17 09:57 Santyl - TP 1 applic DAILY [facility] Administration Fentanyl 50 mcg 01/18/17 18:30 Sublimaze Injection - IVPUSH 01/21/17 17:56 [id number] PRN PAIN Lactated Ringer's 1,000 mls @ 125 mls/hr 01/18/17 18:30 01/18/17 23:02 Lactated Ringers Solution IV Not Given ASDIR [facility] Piperacillin Sod/Tazobactam 50 mls @ 100 mls/hr 01/19/17 02:00 01/19/17 09:56 Sod 3.375 gm/ Dextrose IVPB 100 mls/hr Q8H-IV [facility] Administration Protocol Insulin Aspart 1 vial 01/18/17 22:00 01/19/17 11:38 Novolog Vial Sliding Scale - SQ 2 units ACHS [facility] Administration Protocol Metoprolol Succinate 50 mg 01/19/17 10:00 01/19/17 09:56 Toprol Xl - PO 50 mg DAILY [facility] Administration Oxycodone HCl 10 mg 01/18/17 18:30 01/19/17 09:58 Roxicodone - PO 01/19/17 17:54 10 mg Q4H PRN Administration SEVERE PAIN ASSESSMENT/PLAN: Patient is a 61 year old male with a significant medical history of hypertension , hyperlipidemia, diabetes and right great toe amputation. 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 Patient reports having diabetic ulcer's in the past, with amputation of his right great toe. Patient denies fever, chills or shortness of breath. Imagin01/15/2017: Vascular lower ext. ultrasound pending ID: Left second diabetic toe ulceration and cellulitis, +slough - acute on chronic Assessment/Plan: Left foot 2nd toe with discoloration, anterior toe diabetic ulcer, no palpable pulses to left foot, but foot is warm to touch On Zosyn (01/15 - ) as per ID WBC within normal limits, remains afebrile Multibacterial positive from his wound cx Blood and urine cultures negative to date s/p left tibial revascularization on 01/18, for left foot 2nd toe amputation tomorrow NPO at midnight Cardiology: Hypertension - chronic Assessment/Plan: On Metoprolol 50mg daily, HCTZ on hold 2/2 to renal fx Monitor BP Hyperlipidemiav - chronic Assessment/Plan: On Lipitor Endocrine: Diabetes Mellitus - chronic Assessment/Plan: Novolog sliding scale Monitor BGMs Renal: CHARLES - Assessment/Plan: Renal function now stable continue to hold HCTZ F.E.N. Fluids: tolerating PO Electrolytes: monitor lytes Nutrition: NPO for OR tomorrow, otherwise on diabetic diet Prophylaxis: DVT Prophy: Hold heparin at midnight tonight, restart after OR tomorrow GI: Protonix 40mg daily Dispositon: Requires inpatient hospitalization. Full Code. Visit type - Emergency Visit Emergency Visit: Yes ED Registration Date: 01/14/17 Care time: The patient presented to the Emergency Department on the above date and was hospitalized for further evaluation of their emergent condition. - New Patient This patient is new to me today: No - Critical Care Critical Care patient: No - Discharge Referral Referred to [facility] Med [facility] No
[2017-01-19] MEDS: LACTATED RINGERS SOLUTION 1,000 ML IV SCH (18:50)
[2017-01-19] MEDS: oxyCODONE HCL 5 MG TABLET PO PRN (20:17)
[2017-01-19] MEDS ORDERED: INSULIN (NOVOLOG) ASPART 100 UNITS/ML 10ML VIAL ONE (21:14)
[2017-01-19] MEDS: ATORVASTATIN CA 40 MG TABLET (FP) PO SCH (21:19)
[2017-01-19] MEDS ORDERED: HEPARIN NA (PORCINE) 5,000 UNITS/ML 1ML VIAL SQ SCH (22:00)
[2017-01-20] MEDS ORDERED: PIPERACILLIN/TAZOBACTAM 3.375 GM VIAL IVPB ONE ×3 (01:12→18:38)
[2017-01-20] MEDS ORDERED: DEXTROSE 5%-WATER - 50 ML IVPB ONE (01:12)
[2017-01-20] MEDS: PIPERACILLIN/TAZOB 3.375 GM 3.375 GM in DEXTROSE 5%-WATER - 50 ML IVPB SCH ×3 (01:14→18:44)
[2017-01-20] MEDS: INSULIN SLIDING SCALE (NOVOLOG) 1 VIAL SQ SCH ×3 (06:18→22:01)
[2017-01-20] MEDS: oxyCODONE HCL 5 MG TABLET PO PRN (06:25)
[2017-01-20 08:20] LABS: BASOPHIL 0.9 % (0-2.0); EOSINOPHIL 2.1 % (0-4.5); MCH 26.2 pg (25.7-33.7); MCHC 32.5 g/dl (32.0-35.9); MEAN CELL VOLUME 80.6 fl (80-96); MEAN PLT VOLUME 7.9 fl (7.5-11.1); PLATELET COUNT 344 K/MM3 (134-434); RDW 14.4 % (11.9-15.9); WHITE BLOOD COUNT 7.6 K/mm3 (4.0-10.0)
[2017-01-20 08:37] LABS: ALBUMIN 2.8 g/dl (3.4-5.0); ANION GAP 9 (8-16); BILIRUBIN,TOTAL 0.7 mg/dL (0.2-1.0); CALCIUM 8.6 mg/dL (8.5-10.1); CO2 24 mmol/L (21-32); GLUCOSE,RANDOM 140 mg/dL (74-106); SGOT/AST 9 U/L (15-37); SGPT/ALT 14 U/L (12-78)
[2017-01-20 08:39] LABS: ALK PHOS 69 U/L (45-117); TOT PROT 6.6 g/dl (6.4-8.2)
[2017-01-20] MEDS: METOPROLOL SUCCINATE 50 MG TAB.SR.24H (FP) PO SCH (09:45)
[2017-01-20] MEDS: CLOPIDOGREL BISULFATE 75 MG TABLET (FP) PO SCH (09:46)
[2017-01-20] MEDS: ASPIRIN 81 MG CHEWABLE TABLETS PO SCH (09:46)
[2017-01-20] MEDS: COLLAGENASE CLOSTRIDIUM HIST. 30 GRAMS TUBE TP SCH (10:00)
--- NOTE | 2017-01-20 10:34 | PN ---
Progress Note (short form) - Note Progress Note: Subjective: The patient was seen at the bedside, he is NPO for amputation today Current Medications Generic Name Dose Route Start Last Admin Trade Name Tyler PRN Reason Stop Dose Admin Aspirin 81 mg 01/19/17 10:00 01/20/17 09:46 Asa - PO 81 mg DAILY [facility] Administration Atorvastatin Calcium 40 mg 01/18/17 22:00 01/19/17 21:19 Lipitor - PO 40 mg HS [facility] Administration Clopidogrel Bisulfate 75 mg 01/19/17 10:00 01/20/17 09:46 Plavix - PO 75 mg DAILY [facility] Administration Collagenase 1 applic 01/19/17 10:00 01/19/17 09:57 Santyl - TP 1 applic DAILY [facility] Administration Fentanyl 50 mcg 01/18/17 18:30 Sublimaze Injection - IVPUSH 01/21/17 17:56 [id number] PRN PAIN Lactated Ringer's 1,000 mls @ 125 mls/hr 01/18/17 18:30 01/19/17 18:50 Lactated Ringers Solution IV Not Given ASDIR [facility] Piperacillin Sod/Tazobactam 50 mls @ 100 mls/hr 01/19/17 02:00 01/20/17 09:46 Sod 3.375 gm/ Dextrose IVPB 100 mls/hr Q8H-IV [facility] Administration Protocol Insulin Aspart 1 vial 01/18/17 22:00 01/20/17 06:18 Novolog Vial Sliding Scale - SQ Not Given ACHS [facility] Protocol Metoprolol Succinate 50 mg 01/19/17 10:00 01/20/17 09:45 Toprol Xl - PO 50 mg DAILY [facility] Administration Oxycodone HCl 5 mg 01/19/17 20:10 01/20/17 06:25 Roxicodone - PO 5 mg Q4H PRN Administration PAIN Objective: Vital Signs Period Temp Pulse Resp BP Sys/Herron Pulse Ox Last 24 Hr 98.2 F-98.7 F 77-85 20-20 122-151/73-92 Physical Exam: Patient refused CBCD WBC 7.6 K/mm3 (4.0-10.0) 01/20/17 07:20 RBC 3.68 M/mm3 (4.00-5.60) L 01/20/17 07:20 Hgb 9.6 GM/dL (11.7-16.9) L 01/20/17 07:20 Hct 29.7 % (35.4-49) L 01/20/17 07:20 MCV 80.6 fl (80-96) 01/20/17 07:20 MCHC 32.5 g/dl (32.0-35.9) 01/20/17 07:20 RDW 14.4 % (11.9-15.9) 01/20/17 07:20 Plt Count 344 K/MM3 (134-434) 01/20/17 07:20 MPV 7.9 fl (7.5-11.1) 01/20/17 07:20 CMP Sodium 138 mmol/L (136-145) 01/20/17 07:20 Potassium 4.1 mmol/L (3.5-5.1) 01/20/17 07:20 Chloride 105 mmol/L (98-107) 01/20/17 07:20 Carbon Dioxide 24 mmol/L (21-32) 01/20/17 07:20 Anion Gap 9 (8-16) 01/20/17 07:20 BUN 13 mg/dL (7-18) 01/20/17 07:20 Creatinine 1.0 mg/dL (0.7-1.3) 01/20/17 07:20 Creat Clearance w eGFR > 60 (>60) 01/20/17 07:20 Random Glucose 140 mg/dL (74-106) H 01/20/17 07:20 Calcium 8.6 mg/dL (8.5-10.1) 01/20/17 07:20 Total Bilirubin 0.7 mg/dL (0.2-1.0) D 01/20/17 07:20 AST 9 U/L (15-37) L 01/20/17 07:20 ALT 14 U/L (12-78) 01/20/17 07:20 Alkaline Phosphatase 69 U/L (45-117) 01/20/17 07:20 Total Protein 6.6 g/dl (6.4-8.2) 01/20/17 07:20 Albumin 2.8 g/dl (3.4-5.0) L 01/20/17 07:20 Microbiology 01/14/17 20:55 Blood - Peripheral Venous Blood Culture - Final NO GROWTH AFTER 5 DAYS INCUBATION 01/14/17 20:55 Blood - Peripheral Venous Blood Culture - Final NO GROWTH AFTER 5 DAYS INCUBATION 01/14/17 21:05 Toe - Left Second Gram Stain - Final 01/14/17 21:05 Toe - Left Second Wound Culture - Final Staphylococcus Aureus Acinetobacter Baumannii/Haemol Enterobacter Cloacae 01/14/17 20:48 Urine - Urine Clean Catch Urine Culture - Final NO GROWTH OBTAINED Assessment: This is a 61 year old male with PMHx of DM, right great toe amputation, 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 Plan: 1) Vascular: Severe distal flow deficit to left foot - S/p revascularization left posterior tibial artery with atherectomy and angioplasty on 01/18 - Continue Plavix - Continue ASA - For second digit left foot amputation today - Appreciate vascular surgery consult 2) ID: Left food second toe osteomyelitis - For amputation today - Continue Zosyn - Awaiting culture - Appreciate ID consult 3) Cardiology: HTN - Continue Toprol XL HLD - Continue Lipitor 4) Endocrine: DM - BGM ACHS - ISS ACHS 5) : CHARLES - Resolved 6) F/E/N: - NPO for surgery today - Monitor electrolytes 7) Prophylaxis: - Hold all chemical DVT prophylaxis for surgery today - OOB ambulating 8) Dispo: - Requires continued inpatient care CODE STATUS: FULL CODE Visit type - Emergency Visit Emergency Visit: Yes ED Registration Date: 01/14/17 Care time: The patient presented to the Emergency Department on the above date and was hospitalized for further evaluation of their emergent condition. - New Patient This patient is new to me today: Yes Date on this admission: 01/20/17 - Critical Care Critical Care patient: No
--- NOTE | 2017-01-20 14:42 | PN ---
Progress Note, Physician History of Present Illness: doing well no new events going for surgery today - Current Medication List Current Medications: Active Medications Aspirin (Asa -) 81 mg PO DAILY [facility] Last Admin: 01/20/17 09:46 Dose: 81 mg Atorvastatin Calcium (Lipitor -) 40 mg PO HS [facility] Last Admin: 01/19/17 21:19 Dose: 40 mg Clopidogrel Bisulfate (Plavix -) 75 mg PO DAILY [facility] Last Admin: 01/20/17 09:46 Dose: 75 mg Collagenase (Santyl -) 1 applic TP DAILY [facility] Last Admin: 01/20/17 10:00 Dose: Not Given Fentanyl (Sublimaze Injection -) 50 mcg IVPUSH [id number] PRN PRN Reason: PAIN Stop: 01/21/17 17:56 Lactated Ringer's (Lactated Ringers Solution) 1,000 mls @ 125 mls/hr IV ASDIR [facility] Last Admin: 01/19/17 18:50 Dose: Not Given Piperacillin Sod/Tazobactam (Sod 3.375 gm/ Dextrose) 50 mls @ 100 mls/hr IVPB Q8H-IV [facility] PRN Reason: Protocol Last Admin: 01/20/17 09:46 Dose: 100 mls/hr Insulin Aspart (Novolog Vial Sliding Scale -) 1 vial SQ ACHS [facility] PRN Reason: Protocol Last Admin: 01/20/17 11:06 Dose: Not Given Metoprolol Succinate (Toprol Xl -) 50 mg PO DAILY [facility] Last Admin: 01/20/17 09:45 Dose: 50 mg Oxycodone HCl (Roxicodone -) 5 mg PO Q4H PRN PRN Reason: PAIN Last Admin: 01/20/17 06:25 Dose: 5 mg - Objective Vital Signs: Vital Signs Temperature 98.4 F 01/20/17 05:57 Pulse Rate 80 01/20/17 05:57 Respiratory Rate 20 01/20/17 05:57 Blood Pressure 151/85 01/20/17 05:57 O2 Sat by Pulse Oximetry (%) 95 01/19/17 09:00 Constitutional: Yes: No Distress, Calm Cardiovascular: Yes: Regular Rate and Rhythm Respiratory: Yes: Regular, CTA Bilaterally Gastrointestinal: Yes: Normal Bowel Sounds, Soft Musculoskeletal: Yes: Other Extremities: Yes: Other Neurological: Yes: Alert, Oriented Psychiatric: Yes: Alert Labs: CBC, BMP 01/20/17 07:20 01/20/17 07:20 INR, PTT INR 1.12 (0.82-1.09) 01/14/17 20:55 Assessment/Plan Problem List - Problem (1) Osteomyelitis Code(s): M86.9 - OSTEOMYELITIS, UNSPECIFIED (2) Diabetic foot Code(s): E11.8 - TYPE 2 DIABETES MELLITUS WITH UNSPECIFIED COMPLICATIONS (3) Diabetes Code(s): E11.9 - TYPE 2 DIABETES MELLITUS WITHOUT COMPLICATIONS (4) Hypertension Code(s): I10 - ESSENTIAL (PRIMARY) HYPERTENSION (5) HLD (hyperlipidemia) Code(s): E78.5 - HYPERLIPIDEMIA, UNSPECIFIED this patient has been receiving hyperbaric for couple of weeks plan continue abx continue as per primary for surgery today will see what surgery shows
[2017-01-20] MEDS ORDERED: MIDAZOLAM HCL 2 MG/2 ML SINGLE DOSE VIAL ONE (15:38)
[2017-01-20] MEDS ORDERED: LIDOCAINE HCL 1%, 10 MG/ML (20ML VIAL) IJ ONE (16:18)
--- NOTE | 2017-01-20 16:46 | OP ---
Operative Note - Note: Operative Date: 01/20/17 Pre-Operative Diagnosis: Gangrene left 2nd toe Operation: Amputation left 2nd toe Findings: Gangrene mid and distal phalanx Post-Operative Diagnosis: Same as Pre-op Surgeon: Ty Florez Anesthesiologist/ROLL OVER PRESS OPERATOR: Natalia Harris Anesthesia: Fractional Operative Report Dictated: Yes
[2017-01-20] MEDS ORDERED: PIPERACILLIN/TAZOB 3.375 GM 3.375 GM in DEXTROSE 5%-WATER 100 ML IVPB ONE (16:59)
[2017-01-20] MEDS: LACTATED RINGERS SOLUTION 1,000 ML IV SCH (18:44)
[2017-01-20] MEDS ORDERED: INSULIN (NOVOLOG) ASPART 100 UNITS/ML 10ML VIAL ONE (21:53)
[2017-01-20] MEDS: ATORVASTATIN CA 40 MG TABLET (FP) PO SCH (22:01)
[2017-01-21] MEDS ORDERED: DEXTROSE 5%-WATER - 50 ML IVPB ONE ×3 (02:10→17:36)
[2017-01-21] MEDS ORDERED: PIPERACILLIN/TAZOBACTAM 3.375 GM VIAL IVPB ONE ×3 (02:10→17:36)
[2017-01-21] MEDS: PIPERACILLIN/TAZOB 3.375 GM 3.375 GM in DEXTROSE 5%-WATER - 50 ML IVPB SCH ×3 (02:14→17:39)
[2017-01-21] MEDS: oxyCODONE HCL 5 MG TABLET PO PRN ×3 (02:37→20:52)
[2017-01-21] MEDS: INSULIN SLIDING SCALE (NOVOLOG) 1 VIAL SQ SCH ×4 (06:38→23:00)
--- NOTE | 2017-01-21 10:39 | OP ---
DATE OF OPERATION: 01/20/2017 SURGEON: Edwin Rosenberg MD PROCEDURE: Amputation of left second toe. PREOPERATIVE DIAGNOSIS: Gangrene, left second toe. POSTOPERATIVE DIAGNOSIS: Gangrene, left second toe. ANESTHESIA: Fractional. ANESTHESIOLOGIST: Natalia Harris MD OPERATIVE FINDINGS: There was a necrotic wound on the dorsum of the left second toe extending down to and involving the bone of the middle and distal phalanx. OPERATIVE PROCEDURE: Following routine patient identification with side and site verification, intravenous sedation was established. Timeout was performed. The left foot was prepped with Betadine solution. Xylocaine 1% was infiltrated around the second metatarsal to affect a nerve block. Incision was then made proximal to the gangrenous wound on the dorsum of the toe in the proximal phalanx and carried down to the bone sharply. The posterior incision was carried around proximally to the interphalangeal joint. The bone was then transected with a bone cutter, and the specimen was removed. The portion of the proximal phalanx was further debrided back with a rongeur and smoothed with a rasp. Additional soft tissue debridement was performed sharply, and ends of the flexor tendons were excised. The wound was irrigated with saline. The skin edges were then approximated with interrupted sutures of 3-0 nylon. A sterile dressing consisting of Xeroform gauze, fluffs, and Kerlix was applied, and the patient was taken to the recovery room in stable condition. EDWIN ROSENBERG M.D. [id number]
[2017-01-21] MEDS: ASPIRIN 81 MG CHEWABLE TABLETS PO SCH (11:16)
[2017-01-21] MEDS: CLOPIDOGREL BISULFATE 75 MG TABLET (FP) PO SCH (11:16)
[2017-01-21] MEDS: METOPROLOL SUCCINATE 50 MG TAB.SR.24H (FP) PO SCH (11:16)
[2017-01-21] MEDS ORDERED: INSULIN (NOVOLOG) ASPART 100 UNITS/ML 10ML VIAL ONE ×2 (11:26→23:40)
--- NOTE | 2017-01-21 15:00 | PN ---
Progress Note, Physician History of Present Illness: patient doing well no issues post op dsg in place - Current Medication List Current Medications: Active Medications Ascorbic Acid (Vitamin C -) 250 mg PO DAILY [facility] Aspirin (Asa -) 81 mg PO DAILY [facility] Last Admin: 01/21/17 11:16 Dose: 81 mg Atorvastatin Calcium (Lipitor -) 40 mg PO HS [facility] Last Admin: 01/20/17 22:01 Dose: 40 mg Clopidogrel Bisulfate (Plavix -) 75 mg PO DAILY [facility] Last Admin: 01/21/17 11:16 Dose: 75 mg Piperacillin Sod/Tazobactam (Sod 3.375 gm/ Dextrose) 50 mls @ 100 mls/hr IVPB Q8H-IV [facility] PRN Reason: Protocol Last Admin: 01/21/17 11:15 Dose: 100 mls/hr Lactated Ringer's (Lactated Ringers Solution) 1,000 mls @ 125 mls/hr IV ASDIR [facility] Last Admin: 01/20/17 18:44 Dose: Not Given Insulin Aspart (Novolog Vial Sliding Scale -) 1 vial SQ ACHS [facility] PRN Reason: Protocol Last Admin: 01/21/17 11:27 Dose: 2 units Metoprolol Succinate (Toprol Xl -) 50 mg PO DAILY [facility] Last Admin: 01/21/17 11:16 Dose: 50 mg Multivitamins/Minerals/Vitamin C (Tab-A-Vit -) 1 tab PO DAILY [facility] Oxycodone HCl (Roxicodone -) 5 mg PO Q4H PRN PRN Reason: PAIN Last Admin: 01/21/17 08:39 Dose: 5 mg - Objective Vital Signs: Vital Signs Temperature 98.2 F 01/21/17 14:43 Pulse Rate 78 01/21/17 14:43 Respiratory Rate 20 01/21/17 09:00 Blood Pressure 163/67 01/21/17 14:43 O2 Sat by Pulse Oximetry (%) 99 01/20/17 21:00 Constitutional: Yes: No Distress, Calm Cardiovascular: Yes: Regular Rate and Rhythm Respiratory: Yes: Regular, CTA Bilaterally Gastrointestinal: Yes: Normal Bowel Sounds, Soft Musculoskeletal: Yes: Other Extremities: Yes: Other Wound/Incision: Yes: Dressing Dry and Intact Neurological: Yes: Alert, Oriented Psychiatric: Yes: Alert Labs: CBC, BMP 01/20/17 07:20 01/20/17 07:20 INR, PTT INR 1.12 (0.82-1.09) 01/14/17 20:55 Assessment/Plan Problem List - Problem (1) Osteomyelitis Code(s): M86.9 - OSTEOMYELITIS, UNSPECIFIED (2) Diabetic foot Code(s): E11.8 - TYPE 2 DIABETES MELLITUS WITH UNSPECIFIED COMPLICATIONS (3) Diabetes Code(s): E11.9 - TYPE 2 DIABETES MELLITUS WITHOUT COMPLICATIONS (4) Hypertension Code(s): I10 - ESSENTIAL (PRIMARY) HYPERTENSION (5) HLD (hyperlipidemia) Code(s): E78.5 - HYPERLIPIDEMIA, UNSPECIFIED this patient has been receiving hyperbaric for couple of weeks plan will continue abx for now please check if any bone was send if margins clean no abx rest as per surgery
--- NOTE | 2017-01-21 15:05 | PN ---
Progress Note (short form) - Note Progress Note: Subjective: The patient was seen at the bedside, he has no complaints at this time. Current Medications Generic Name Dose Route Start Last Admin Trade Name Freq PRN Reason Stop Dose Admin Ascorbic Acid 250 mg 01/22/17 10:00 Vitamin C - PO DAILY GERARDO Aspirin 81 mg 01/21/17 10:00 01/21/17 11:16 Asa - PO 81 mg DAILY GERARDO Administration Atorvastatin Calcium 40 mg 01/20/17 22:00 01/20/17 22:01 Lipitor - PO 40 mg HS GERARDO Administration Clopidogrel Bisulfate 75 mg 01/21/17 10:00 01/21/17 11:16 Plavix - PO 75 mg DAILY GERARDO Administration Heparin Sodium (Porcine) 5,000 unit 01/21/17 22:00 Heparin - SQ TID GERARDO Piperacillin Sod/Tazobactam 50 mls @ 100 mls/hr 01/20/17 18:00 01/21/17 11:15 Sod 3.375 gm/ Dextrose IVPB 100 mls/hr Q8H-IV GERARDO Administration Protocol Lactated Ringer's 1,000 mls @ 125 mls/hr 01/20/17 17:30 01/20/17 18:44 Lactated Ringers Solution IV Not Given ASDIR GERARDO Insulin Aspart 1 vial 01/20/17 22:00 01/21/17 11:27 Novolog Vial Sliding Scale - SQ 2 units ACHS GERARDO Administration Protocol Metoprolol Succinate 50 mg 01/21/17 10:00 01/21/17 11:16 Toprol Xl - PO 50 mg DAILY GERARDO Administration Multivitamins/Minerals/Vitamin C 1 tab 01/22/17 10:00 Tab-A-Vit - PO DAILY GERARDO Oxycodone HCl 5 mg 01/20/17 16:59 01/21/17 08:39 Roxicodone - PO 5 mg Q4H PRN Administration PAIN Objective: Vital Signs Period Temp Pulse Resp BP Sys/Herron Pulse Ox Last 24 Hr 97.2 F-98.9 F 68-90 12-20 125-163/67-91 98-100 Physical Exam: Left foot with dressing, c/d/i CBCD WBC 7.6 K/mm3 (4.0-10.0) 01/20/17 07:20 RBC 3.68 M/mm3 (4.00-5.60) L 01/20/17 07:20 Hgb 9.6 GM/dL (11.7-16.9) L 01/20/17 07:20 Hct 29.7 % (35.4-49) L 01/20/17 07:20 MCV 80.6 fl (80-96) 01/20/17 07:20 MCHC 32.5 g/dl (32.0-35.9) 01/20/17 07:20 RDW 14.4 % (11.9-15.9) 01/20/17 07:20 Plt Count 344 K/MM3 (134-434) 01/20/17 07:20 MPV 7.9 fl (7.5-11.1) 01/20/17 07:20 CMP Sodium 138 mmol/L (136-145) 01/20/17 07:20 Potassium 4.1 mmol/L (3.5-5.1) 01/20/17 07:20 Chloride 105 mmol/L (98-107) 01/20/17 07:20 Carbon Dioxide 24 mmol/L (21-32) 01/20/17 07:20 Anion Gap 9 (8-16) 01/20/17 07:20 BUN 13 mg/dL (7-18) 01/20/17 07:20 Creatinine 1.0 mg/dL (0.7-1.3) 01/20/17 07:20 Creat Clearance w eGFR > 60 (>60) 01/20/17 07:20 Random Glucose 140 mg/dL (74-106) H 01/20/17 07:20 Calcium 8.6 mg/dL (8.5-10.1) 01/20/17 07:20 Total Bilirubin 0.7 mg/dL (0.2-1.0) D 01/20/17 07:20 AST 9 U/L (15-37) L 01/20/17 07:20 ALT 14 U/L (12-78) 01/20/17 07:20 Alkaline Phosphatase 69 U/L (45-117) 01/20/17 07:20 Total Protein 6.6 g/dl (6.4-8.2) 01/20/17 07:20 Albumin 2.8 g/dl (3.4-5.0) L 01/20/17 07:20 Microbiology 01/14/17 20:55 Blood - Peripheral Venous Blood Culture - Final NO GROWTH AFTER 5 DAYS INCUBATION 01/14/17 20:55 Blood - Peripheral Venous Blood Culture - Final NO GROWTH AFTER 5 DAYS INCUBATION 01/14/17 21:05 Toe - Left Second Gram Stain - Final 01/14/17 21:05 Toe - Left Second Wound Culture - Final Staphylococcus Aureus Acinetobacter Baumannii/Haemol Enterobacter Cloacae 01/14/17 20:48 Urine - Urine Clean Catch Urine Culture - Final NO GROWTH OBTAINED Assessment: This is a 61 year old male with PMHx of DM, right great toe amputation, 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 Plan: 1) Vascular: Severe distal flow deficit to left foot - S/p revascularization left posterior tibial artery with atherectomy and angioplasty on 01/18 - Continue Plavix - Continue ASA - Appreciate vascular surgery consult 2) ID: Left food second toe osteomyelitis, gangrene - Amputation on 01/20/17 - Continue Zosyn - Awaiting culture - Appreciate ID consult 3) Cardiology: HTN - Continue Toprol XL HLD - Continue Lipitor 4) Endocrine: DM - BGM ACHS - ISS ACHS 5) : CHARLES - Resolved 6) F/E/N: - Diabetic, sodium controlled diet - Monitor electrolytes 7) Prophylaxis: - Heparin 5,000u sq tid - OOB ambulating 8) Dispo: - Requires continued inpatient care CODE STATUS: FULL CODE Visit type - Emergency Visit Emergency Visit: Yes ED Registration Date: 01/14/17 Care time: The patient presented to the Emergency Department on the above date and was hospitalized for further evaluation of their emergent condition. - New Patient This patient is new to me today: No - Critical Care Critical Care patient: No
[2017-01-21] MEDS: LACTATED RINGERS SOLUTION 1,000 ML IV SCH (17:39)
[2017-01-21] MEDS: ATORVASTATIN CA 40 MG TABLET (FP) PO SCH (21:38)
[2017-01-21] MEDS: HEPARIN NA (PORCINE) 5,000 UNITS/ML 1ML VIAL SQ SCH (21:38)
[2017-01-22] MEDS ORDERED: DEXTROSE 5%-WATER - 50 ML IVPB ONE ×2 (01:10→09:38)
[2017-01-22] MEDS ORDERED: PIPERACILLIN/TAZOBACTAM 3.375 GM VIAL IVPB ONE ×3 (01:10→16:52)
[2017-01-22] MEDS: PIPERACILLIN/TAZOB 3.375 GM 3.375 GM in DEXTROSE 5%-WATER - 50 ML IVPB SCH ×3 (01:26→16:57)
[2017-01-22] MEDS: HEPARIN NA (PORCINE) 5,000 UNITS/ML 1ML VIAL SQ SCH ×3 (06:32→21:58)
[2017-01-22] MEDS: INSULIN SLIDING SCALE (NOVOLOG) 1 VIAL SQ SCH ×4 (06:32→21:56)
[2017-01-22] MEDS ORDERED: PT OWN MED DRAWER 7, Y5N ONE (09:38)
[2017-01-22] MEDS: METOPROLOL SUCCINATE 50 MG TAB.SR.24H (FP) PO SCH (09:45)
[2017-01-22] MEDS: ASPIRIN 81 MG CHEWABLE TABLETS PO SCH (09:45)
[2017-01-22] MEDS: MULTIVITAMINS (DAILY MVI) TABLET (FP) PO SCH (09:45)
[2017-01-22] MEDS: CLOPIDOGREL BISULFATE 75 MG TABLET (FP) PO SCH (09:45)
[2017-01-22] MEDS: ASCORBIC ACID 250 MG TABLET (FP) PO SCH (09:46)
[2017-01-22] MEDS ORDERED: INSULIN (NOVOLOG) ASPART 100 UNITS/ML 10ML VIAL ONE ×3 (12:59→21:51)
--- NOTE | 2017-01-22 14:11 | PN ---
Progress Note (short form) - Note Progress Note: Subjective: The patient was seen at the bedside, he has no complaints at this time. Current Medications Generic Name Dose Route Start Last Admin Trade Name Tyler PRN Reason Stop Dose Admin Ascorbic Acid 250 mg 01/22/17 10:00 01/22/17 09:46 Vitamin C - PO 250 mg DAILY GERARDO Administration Aspirin 81 mg 01/21/17 10:00 01/22/17 09:45 Asa - PO 81 mg DAILY GERARDO Administration Atorvastatin Calcium 40 mg 01/20/17 22:00 01/21/17 21:38 Lipitor - PO 40 mg HS GERARDO Administration Clopidogrel Bisulfate 75 mg 01/21/17 10:00 01/22/17 09:45 Plavix - PO 75 mg DAILY GERARDO Administration Heparin Sodium (Porcine) 5,000 unit 01/21/17 22:00 01/22/17 13:07 Heparin - SQ 5,000 unit TID GERARDO Administration Piperacillin Sod/Tazobactam 50 mls @ 100 mls/hr 01/20/17 18:00 01/22/17 09:45 Sod 3.375 gm/ Dextrose IVPB 100 mls/hr Q8H-IV GERARDO Administration Protocol Lactated Ringer's 1,000 mls @ 125 mls/hr 01/20/17 17:30 01/21/17 17:39 Lactated Ringers Solution IV Not Given ASDIR GERARDO Insulin Aspart 1 vial 01/20/17 22:00 01/22/17 13:06 Novolog Vial Sliding Scale - SQ 4 units ACHS GERARDO Administration Protocol Metoprolol Succinate 50 mg 01/21/17 10:00 01/22/17 09:45 Toprol Xl - PO 50 mg DAILY GERARDO Administration Multivitamins/Minerals/Vitamin C 1 tab 01/22/17 10:00 01/22/17 09:45 Tab-A-Vit - PO 1 tab DAILY GERARDO Administration Oxycodone HCl 5 mg 01/20/17 16:59 01/21/17 20:52 Roxicodone - PO 5 mg Q4H PRN Administration PAIN Objective: Vital Signs Period Temp Pulse Resp BP Sys/Herron Pulse Ox Last 24 Hr 97.6 F-98.4 F 78-86 20-20 148-163/67-97 99 Physical Exam: Left foot with dressing, c/d/i CBCD WBC 7.6 K/mm3 (4.0-10.0) 01/20/17 07:20 RBC 3.68 M/mm3 (4.00-5.60) L 01/20/17 07:20 Hgb 9.6 GM/dL (11.7-16.9) L 01/20/17 07:20 Hct 29.7 % (35.4-49) L 01/20/17 07:20 MCV 80.6 fl (80-96) 01/20/17 07:20 MCHC 32.5 g/dl (32.0-35.9) 01/20/17 07:20 RDW 14.4 % (11.9-15.9) 01/20/17 07:20 Plt Count 344 K/MM3 (134-434) 01/20/17 07:20 MPV 7.9 fl (7.5-11.1) 01/20/17 07:20 CMP Sodium 138 mmol/L (136-145) 01/20/17 07:20 Potassium 4.1 mmol/L (3.5-5.1) 01/20/17 07:20 Chloride 105 mmol/L (98-107) 01/20/17 07:20 Carbon Dioxide 24 mmol/L (21-32) 01/20/17 07:20 Anion Gap 9 (8-16) 01/20/17 07:20 BUN 13 mg/dL (7-18) 01/20/17 07:20 Creatinine 1.0 mg/dL (0.7-1.3) 01/20/17 07:20 Creat Clearance w eGFR > 60 (>60) 01/20/17 07:20 Random Glucose 140 mg/dL (74-106) H 01/20/17 07:20 Calcium 8.6 mg/dL (8.5-10.1) 01/20/17 07:20 Total Bilirubin 0.7 mg/dL (0.2-1.0) D 01/20/17 07:20 AST 9 U/L (15-37) L 01/20/17 07:20 ALT 14 U/L (12-78) 01/20/17 07:20 Alkaline Phosphatase 69 U/L (45-117) 01/20/17 07:20 Total Protein 6.6 g/dl (6.4-8.2) 01/20/17 07:20 Albumin 2.8 g/dl (3.4-5.0) L 01/20/17 07:20 Microbiology 01/14/17 20:55 Blood - Peripheral Venous Blood Culture - Final NO GROWTH AFTER 5 DAYS INCUBATION 01/14/17 20:55 Blood - Peripheral Venous Blood Culture - Final NO GROWTH AFTER 5 DAYS INCUBATION 01/14/17 21:05 Toe - Left Second Gram Stain - Final 01/14/17 21:05 Toe - Left Second Wound Culture - Final Staphylococcus Aureus Acinetobacter Baumannii/Haemol Enterobacter Cloacae 01/14/17 20:48 Urine - Urine Clean Catch Urine Culture - Final NO GROWTH OBTAINED Assessment: This is a 61 year old male with PMHx of DM, right great toe amputation, who 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 Plan: 1) Vascular: Severe distal flow deficit to left foot - S/p revascularization left posterior tibial artery with atherectomy and angioplasty on 01/18 - Continue Plavix - Continue ASA - Appreciate vascular surgery consult 2) ID: Left food second toe osteomyelitis, gangrene - Amputation on 01/20/17 - Left message with pathology for surgical pathology report - Continue Zosyn - Appreciate ID consult 3) Cardiology: HTN - Continue Toprol XL HLD - Continue Lipitor 4) Endocrine: DM - BGM ACHS - ISS ACHS 5) : CHARLES - Resolved 6) F/E/N: - Diabetic, sodium controlled diet - Monitor electrolytes 7) Prophylaxis: - Heparin 5,000u sq tid - OOB ambulating 8) Dispo: - Requires continued inpatient care CODE STATUS: FULL CODE Visit type - Emergency Visit Emergency Visit: Yes ED Registration Date: 01/14/17 Care time: The patient presented to the Emergency Department on the above date and was hospitalized for further evaluation of their emergent condition. - New Patient This patient is new to me today: No - Critical Care Critical Care patient: No
--- NOTE | 2017-01-22 14:52 | PN ---
Progress Note, Physician History of Present Illness: patient doing well no issues post op dsg in place - Current Medication List Current Medications: Active Medications Ascorbic Acid (Vitamin C -) 250 mg PO DAILY [facility] Last Admin: 01/22/17 09:46 Dose: 250 mg Aspirin (Asa -) 81 mg PO DAILY [facility] Last Admin: 01/22/17 09:45 Dose: 81 mg Atorvastatin Calcium (Lipitor -) 40 mg PO HS [facility] Last Admin: 01/21/17 21:38 Dose: 40 mg Clopidogrel Bisulfate (Plavix -) 75 mg PO DAILY [facility] Last Admin: 01/22/17 09:45 Dose: 75 mg Heparin Sodium (Porcine) (Heparin -) 5,000 unit SQ TID [facility] Last Admin: 01/22/17 13:07 Dose: 5,000 unit Piperacillin Sod/Tazobactam (Sod 3.375 gm/ Dextrose) 50 mls @ 100 mls/hr IVPB Q8H-IV GERARDO PRN Reason: Protocol Last Admin: 01/22/17 09:45 Dose: 100 mls/hr Lactated Ringer's (Lactated Ringers Solution) 1,000 mls @ 125 mls/hr IV ASDIR [facility] Last Admin: 01/21/17 17:39 Dose: Not Given Insulin Aspart (Novolog Vial Sliding Scale -) 1 vial SQ ACHS [facility] PRN Reason: Protocol Last Admin: 01/22/17 13:06 Dose: 4 units Metoprolol Succinate (Toprol Xl -) 50 mg PO DAILY [facility] Last Admin: 01/22/17 09:45 Dose: 50 mg Multivitamins/Minerals/Vitamin C (Tab-A-Vit -) 1 tab PO DAILY [facility] Last Admin: 01/22/17 09:45 Dose: 1 tab Oxycodone HCl (Roxicodone -) 5 mg PO Q4H PRN PRN Reason: PAIN Last Admin: 01/21/17 20:52 Dose: 5 mg - Objective Vital Signs: Vital Signs Temperature 97.6 F 01/22/17 08:03 Pulse Rate 86 01/22/17 08:03 Respiratory Rate 20 01/22/17 08:03 Blood Pressure 148/97 01/22/17 08:03 O2 Sat by Pulse Oximetry (%) 99 01/21/17 21:00 Constitutional: Yes: No Distress, Calm Cardiovascular: Yes: Regular Rate and Rhythm Respiratory: Yes: Regular, CTA Bilaterally Gastrointestinal: Yes: Normal Bowel Sounds, Soft Musculoskeletal: Yes: WNL Extremities: Yes: Other Neurological: Yes: Alert, Oriented Psychiatric: Yes: Alert Labs: CBC, BMP 01/20/17 07:20 01/20/17 07:20 INR, PTT INR 1.12 (0.82-1.09) 01/14/17 20:55 Assessment/Plan Problem List - Problem (1) Osteomyelitis Code(s): M86.9 - OSTEOMYELITIS, UNSPECIFIED (2) Diabetic foot Code(s): E11.8 - TYPE 2 DIABETES MELLITUS WITH UNSPECIFIED COMPLICATIONS (3) Diabetes Code(s): E11.9 - TYPE 2 DIABETES MELLITUS WITHOUT COMPLICATIONS (4) Hypertension Code(s): I10 - ESSENTIAL (PRIMARY) HYPERTENSION (5) HLD (hyperlipidemia) Code(s): E78.5 - HYPERLIPIDEMIA, UNSPECIFIED this patient has been receiving hyperbaric for couple of weeks plan ct abx for now as per primary see if we can report if patient has complete removal of the bone we might stop abx
[2017-01-22] MEDS: oxyCODONE HCL 5 MG TABLET PO PRN (16:57)
--- NOTE | 2017-01-22 18:49 | PN ---
Progress Note (short form) - Note Progress Note: No C/o Amp site clean and dry, minimal drainage. Stable. Continue ABX Limited weight bearing Problem List - Problems (1) Osteomyelitis Code(s): M86.9 - OSTEOMYELITIS, UNSPECIFIED Qualifiers: Osteomyelitis type: chronic, with draining sinus Osteomyelitis location : foot Laterality: left Qualified Code(s): M86.472 - Chronic osteomyelitis with draining sinus, left ankle and foot (2) Ischemic foot Code(s): I99.8 - OTHER DISORDER OF CIRCULATORY SYSTEM
[2017-01-22] MEDS: LACTATED RINGERS SOLUTION 1,000 ML IV SCH (21:58)
[2017-01-22] MEDS: ATORVASTATIN CA 40 MG TABLET (FP) PO SCH (21:58)
[2017-01-23] MEDS ORDERED: DEXTROSE 5%-WATER - 50 ML IVPB ONE ×3 (02:37→17:46)
[2017-01-23] MEDS ORDERED: PIPERACILLIN/TAZOBACTAM 3.375 GM VIAL IVPB ONE ×3 (02:37→17:46)
[2017-01-23] MEDS: PIPERACILLIN/TAZOB 3.375 GM 3.375 GM in DEXTROSE 5%-WATER - 50 ML IVPB SCH ×4 (02:50→17:55)
[2017-01-23] MEDS: oxyCODONE HCL 5 MG TABLET PO PRN ×2 (03:08→18:40)
[2017-01-23] MEDS: HEPARIN NA (PORCINE) 5,000 UNITS/ML 1ML VIAL SQ SCH ×3 (06:38→21:40)
[2017-01-23] MEDS ORDERED: PT OWN MED DRAWER 7, Y5N ONE ×2 (06:54→10:13)
[2017-01-23] MEDS: INSULIN SLIDING SCALE (NOVOLOG) 1 VIAL SQ SCH ×5 (07:00→23:13)
[2017-01-23] MEDS: ASCORBIC ACID 250 MG TABLET (FP) PO SCH (10:25)
[2017-01-23] MEDS: METOPROLOL SUCCINATE 50 MG TAB.SR.24H (FP) PO SCH (10:25)
[2017-01-23] MEDS: CLOPIDOGREL BISULFATE 75 MG TABLET (FP) PO SCH (10:25)
[2017-01-23] MEDS: MULTIVITAMINS (DAILY MVI) TABLET (FP) PO SCH (10:25)
[2017-01-23] MEDS: ASPIRIN 81 MG CHEWABLE TABLETS PO SCH (10:25)
--- NOTE | 2017-01-23 10:47 | PN ---
Progress Note (short form) - Note Progress Note: No C/o Amp site clean and dry, minimal drainage. Stable. Would consider change to PO antibiotic for 1 week then D/C. Limited weight bearing Problem List - Problems (1) Osteomyelitis Code(s): M86.9 - OSTEOMYELITIS, UNSPECIFIED Qualifiers: Osteomyelitis type: chronic, with draining sinus Osteomyelitis location : foot Laterality: left Qualified Code(s): M86.472 - Chronic osteomyelitis with draining sinus, left ankle and foot (2) Ischemic foot Code(s): I99.8 - OTHER DISORDER OF CIRCULATORY SYSTEM
--- NOTE | 2017-01-23 11:11 | PN ---
Progress Note, Physician History of Present Illness: Pt states he feels well. Pain controlled. - Current Medication List Current Medications: Active Medications Ascorbic Acid (Vitamin C -) 250 mg PO DAILY [facility] Last Admin: 01/23/17 10:25 Dose: 250 mg Aspirin (Asa -) 81 mg PO DAILY [facility] Last Admin: 01/23/17 10:25 Dose: 81 mg Atorvastatin Calcium (Lipitor -) 40 mg PO HS [facility] Last Admin: 01/22/17 21:58 Dose: 40 mg Clopidogrel Bisulfate (Plavix -) 75 mg PO DAILY [facility] Last Admin: 01/23/17 10:25 Dose: 75 mg Heparin Sodium (Porcine) (Heparin -) 5,000 unit SQ TID [facility] Last Admin: 01/23/17 06:38 Dose: 5,000 unit Piperacillin Sod/Tazobactam (Sod 3.375 gm/ Dextrose) 50 mls @ 100 mls/hr IVPB Q8H-IV GERARDO PRN Reason: Protocol Last Admin: 01/23/17 10:26 Dose: 100 mls/hr Lactated Ringer's (Lactated Ringers Solution) 1,000 mls @ 125 mls/hr IV ASDIR [facility] Last Admin: 01/22/17 21:58 Dose: Not Given Insulin Aspart (Novolog Vial Sliding Scale -) 1 vial SQ ACHS [facility] PRN Reason: Protocol Last Admin: 01/23/17 07:00 Dose: Not Given Metoprolol Succinate (Toprol Xl -) 50 mg PO DAILY [facility] Last Admin: 01/23/17 10:25 Dose: 50 mg Multivitamins/Minerals/Vitamin C (Tab-A-Vit -) 1 tab PO DAILY [facility] Last Admin: 01/23/17 10:25 Dose: 1 tab Oxycodone HCl (Roxicodone -) 5 mg PO Q4H PRN PRN Reason: PAIN Last Admin: 01/23/17 03:08 Dose: 5 mg - Objective Vital Signs: Vital Signs Temperature 98 F 01/23/17 09:00 Pulse Rate 80 01/23/17 09:00 Respiratory Rate 18 01/23/17 09:00 Blood Pressure 133/77 01/23/17 09:00 O2 Sat by Pulse Oximetry (%) 97 01/22/17 21:00 Constitutional: Yes: No Distress HENT: Yes: WNL Neck: Yes: WNL Cardiovascular: Yes: Regular Rate and Rhythm Respiratory: Yes: CTA Bilaterally Gastrointestinal: Yes: Normal Bowel Sounds, Soft Genitourinary: Yes: WNL Musculoskeletal: Yes: WNL Extremities: Yes: Other (Left toe amputated. Mild serosanguinous discharge, no erythema) Labs: CBC, BMP 01/20/17 07:20 01/20/17 07:20 INR, PTT INR 1.12 (0.82-1.09) 01/14/17 20:55 Problem List - Problems (1) Osteomyelitis Code(s): M86.9 - OSTEOMYELITIS, UNSPECIFIED Qualifiers: Osteomyelitis type: chronic, with draining sinus Osteomyelitis location : foot Laterality: left Qualified Code(s): M86.472 - Chronic osteomyelitis with draining sinus, left ankle and foot (2) Cellulitis Code(s): L03.90 - CELLULITIS, UNSPECIFIED (3) Diabetic foot Code(s): E11.8 - TYPE 2 DIABETES MELLITUS WITH UNSPECIFIED COMPLICATIONS Assessment/Plan for now continue IV antibiotics If entire infected toe was removed will switch to p.o. cont dressing changes pt stable
--- NOTE | 2017-01-23 16:19 | PN ---
Progress Note (short form) - Note Progress Note: Subjective: The patient was seen at the bedside, he has no complaints at this time. Current Medications Generic Name Dose Route Start Last Admin Trade Name Tyler PRN Reason Stop Dose Admin Ascorbic Acid 250 mg 01/22/17 10:00 01/23/17 10:25 Vitamin C - PO 250 mg DAILY GERARDO Administration Aspirin 81 mg 01/21/17 10:00 01/23/17 10:25 Asa - PO 81 mg DAILY GERARDO Administration Atorvastatin Calcium 40 mg 01/20/17 22:00 01/22/17 21:58 Lipitor - PO 40 mg HS GERARDO Administration Clopidogrel Bisulfate 75 mg 01/21/17 10:00 01/23/17 10:25 Plavix - PO 75 mg DAILY GERARDO Administration Heparin Sodium (Porcine) 5,000 unit 01/21/17 22:00 01/23/17 14:23 Heparin - SQ 5,000 unit TID GERARDO Administration Piperacillin Sod/Tazobactam 50 mls @ 100 mls/hr 01/20/17 18:00 01/23/17 10:26 Sod 3.375 gm/ Dextrose IVPB 100 mls/hr Q8H-IV GERARDO Administration Protocol Lactated Ringer's 1,000 mls @ 125 mls/hr 01/20/17 17:30 01/22/17 21:58 Lactated Ringers Solution IV Not Given ASDIR GERARDO Insulin Aspart 1 vial 01/20/17 22:00 01/23/17 13:15 Novolog Vial Sliding Scale - SQ 6 units ACHS GERARDO Administration Protocol Metoprolol Succinate 50 mg 01/21/17 10:00 01/23/17 10:25 Toprol Xl - PO 50 mg DAILY [facility]ER[facility]O Administration Multivitamins/Minerals/Vitamin C 1 tab 01/22/17 10:00 01/23/17 10:25 Tab-A-Vit - PO 1 tab DAILY [facility] Administration Oxycodone HCl 5 mg 01/20/17 16:59 01/23/17 03:08 Roxicodone - PO 5 mg Q4H PRN Administration PAIN Objective: Vital Signs Period Temp Pulse Resp BP Sys/Herron Pulse Ox Last 24 Hr 97.9 F-98.3 F 75-83 18-20 133-153/77-88 97-100 Physical Exam: Patient refused CBCD WBC 7.6 K/mm3 (4.0-10.0) 01/20/17 07:20 RBC 3.68 M/mm3 (4.00-5.60) L 01/20/17 07:20 Hgb 9.6 GM/dL (11.7-16.9) L 01/20/17 07:20 Hct 29.7 % (35.4-49) L 01/20/17 07:20 MCV 80.6 fl (80-96) 01/20/17 07:20 MCHC 32.5 g/dl (32.0-35.9) 01/20/17 07:20 RDW 14.4 % (11.9-15.9) 01/20/17 07:20 Plt Count 344 K/MM3 (134-434) 01/20/17 07:20 MPV 7.9 fl (7.5-11.1) 01/20/17 07:20 CMP Sodium 138 mmol/L (136-145) 01/20/17 07:20 Potassium 4.1 mmol/L (3.5-5.1) 01/20/17 07:20 Chloride 105 mmol/L (98-107) 01/20/17 07:20 Carbon Dioxide 24 mmol/L (21-32) 01/20/17 07:20 Anion Gap 9 (8-16) 01/20/17 07:20 BUN 13 mg/dL (7-18) 01/20/17 07:20 Creatinine 1.0 mg/dL (0.7-1.3) 01/20/17 07:20 Creat Clearance w eGFR > 60 (>60) 01/20/17 07:20 Random Glucose 140 mg/dL (74-106) H 01/20/17 07:20 Calcium 8.6 mg/dL (8.5-10.1) 01/20/17 07:20 Total Bilirubin 0.7 mg/dL (0.2-1.0) D 01/20/17 07:20 AST 9 U/L (15-37) L 01/20/17 07:20 ALT 14 U/L (12-78) 01/20/17 07:20 Alkaline Phosphatase 69 U/L (45-117) 01/20/17 07:20 Total Protein 6.6 g/dl (6.4-8.2) 01/20/17 07:20 Albumin 2.8 g/dl (3.4-5.0) L 01/20/17 07:20 Microbiology 01/14/17 20:55 Blood - Peripheral Venous Blood Culture - Final NO GROWTH AFTER 5 DAYS INCUBATION 01/14/17 20:55 Blood - Peripheral Venous Blood Culture - Final NO GROWTH AFTER 5 DAYS INCUBATION 01/14/17 21:05 Toe - Left Second Gram Stain - Final 01/14/17 21:05 Toe - Left Second Wound Culture - Final Staphylococcus Aureus Acinetobacter Baumannii/Haemol Enterobacter Cloacae 01/14/17 20:48 Urine - Urine Clean Catch Urine Culture - Final NO GROWTH OBTAINED Assessment: This is a 61 year old male with PMHx of DM, right great toe amputation, 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 Plan: 1) Vascular: Severe distal flow deficit to left foot - S/p revascularization left posterior tibial artery with atherectomy and angioplasty on 01/18 - Continue Plavix - Continue ASA - Appreciate vascular surgery consult 2) ID: Left food second toe osteomyelitis, gangrene - Amputation on 01/20/17 - Left message with pathology for surgical pathology report - Spoke to Dr. Florez who states can be discharged on po abx - Continue Zosyn - Spoke to ID who states would like to wait for surgical pathology - Appreciate ID consult 3) Cardiology: HTN - Continue Toprol XL HLD - Continue Lipitor 4) Endocrine: DM - BGM ACHS - ISS ACHS 5) : CHARLES - Resolved 6) F/E/N: - Diabetic, sodium controlled diet - Monitor electrolytes 7) Prophylaxis: - Heparin 5,000u sq tid - OOB ambulating 8) Dispo: - Requires continued inpatient care CODE STATUS: FULL CODE Visit type - Emergency Visit Emergency Visit: Yes ED Registration Date: 01/14/17 Care time: The patient presented to the Emergency Department on the above date and was hospitalized for further evaluation of their emergent condition. - New Patient This patient is new to me today: No - Critical Care Critical Care patient: No
[2017-01-23] MEDS: LACTATED RINGERS SOLUTION 1,000 ML IV SCH (17:44)
[2017-01-23] MEDS ORDERED: INSULIN (NOVOLOG) ASPART 100 UNITS/ML 10ML VIAL ONE (21:35)
[2017-01-23] MEDS: ATORVASTATIN CA 40 MG TABLET (FP) PO SCH (21:40)
[2017-01-24] MEDS ORDERED: DEXTROSE 5%-WATER - 50 ML IVPB ONE ×3 (01:02→18:22)
[2017-01-24] MEDS ORDERED: PIPERACILLIN/TAZOBACTAM 3.375 GM VIAL IVPB ONE ×3 (01:02→18:22)
[2017-01-24] MEDS: PIPERACILLIN/TAZOB 3.375 GM 3.375 GM in DEXTROSE 5%-WATER - 50 ML IVPB SCH ×3 (01:05→18:34)
[2017-01-24] MEDS: INSULIN SLIDING SCALE (NOVOLOG) 1 VIAL SQ SCH ×4 (06:04→21:48)
[2017-01-24] MEDS: HEPARIN NA (PORCINE) 5,000 UNITS/ML 1ML VIAL SQ SCH ×3 (06:04→21:48)
[2017-01-24] MEDS: oxyCODONE HCL 5 MG TABLET PO PRN ×2 (06:05→22:09)
[2017-01-24] MEDS ORDERED: INSULIN (NOVOLOG) ASPART 100 UNITS/ML 10ML VIAL ONE ×2 (06:12→11:45)
[2017-01-24] MEDS ORDERED: PT OWN MED DRAWER 7, Y5N ONE (10:32)
[2017-01-24] MEDS: METOPROLOL SUCCINATE 50 MG TAB.SR.24H (FP) PO SCH (10:37)
[2017-01-24] MEDS: ASPIRIN 81 MG CHEWABLE TABLETS PO SCH (10:37)
[2017-01-24] MEDS: ASCORBIC ACID 250 MG TABLET (FP) PO SCH (10:37)
[2017-01-24] MEDS: CLOPIDOGREL BISULFATE 75 MG TABLET (FP) PO SCH (10:37)
[2017-01-24] MEDS: MULTIVITAMINS (DAILY MVI) TABLET (FP) PO SCH (10:37)
--- NOTE | 2017-01-24 11:11 | PN ---
Progress Note, Physician History of Present Illness: States he feels well. Denies having any specific complaints. - Current Medication List Current Medications: Active Medications Ascorbic Acid (Vitamin C -) 250 mg PO DAILY [facility] Last Admin: 01/24/17 10:37 Dose: 250 mg Aspirin (Asa -) 81 mg PO DAILY [facility] Last Admin: 01/24/17 10:37 Dose: 81 mg Atorvastatin Calcium (Lipitor -) 40 mg PO HS [facility] Last Admin: 01/23/17 21:40 Dose: 40 mg Clopidogrel Bisulfate (Plavix -) 75 mg PO DAILY [facility] Last Admin: 01/24/17 10:37 Dose: 75 mg Heparin Sodium (Porcine) (Heparin -) 5,000 unit SQ TID [facility] Last Admin: 01/24/17 06:04 Dose: 5,000 unit Piperacillin Sod/Tazobactam (Sod 3.375 gm/ Dextrose) 50 mls @ 100 mls/hr IVPB Q8H-IV [facility] PRN Reason: Protocol Last Admin: 01/24/17 10:37 Dose: 100 mls/hr Lactated Ringer's (Lactated Ringers Solution) 1,000 mls @ 125 mls/hr IV ASDIR [facility] Last Admin: 01/23/17 17:44 Dose: Not Given Insulin Aspart (Novolog Vial Sliding Scale -) 1 vial SQ ACHS [facility] PRN Reason: Protocol Last Admin: 01/24/17 06:04 Dose: Not Given Metoprolol Succinate (Toprol Xl -) 50 mg PO DAILY [facility] Last Admin: 01/24/17 10:37 Dose: 50 mg Multivitamins/Minerals/Vitamin C (Tab-A-Vit -) 1 tab PO DAILY [facility] Last Admin: 01/24/17 10:37 Dose: 1 tab Oxycodone HCl (Roxicodone -) 5 mg PO Q4H PRN PRN Reason: PAIN Last Admin: 01/24/17 06:05 Dose: 5 mg - Objective Vital Signs: Vital Signs Temperature 98.7 F 01/24/17 09:00 Pulse Rate 86 01/24/17 09:00 Respiratory Rate 20 01/24/17 09:00 Blood Pressure 133/60 01/24/17 09:00 O2 Sat by Pulse Oximetry (%) 100 01/23/17 21:00 Constitutional: Yes: Well Nourished. No: No Distress, Calm, Anxious, Ashen, Cachectic, Diaphoresis, Mild Distress, Moderate Distress, Severe Distress, Obese , Pallor, Poor Hygeine, Thin, Other Eyes: Yes: WNL HENT: Yes: WNL Neck: Yes: WNL Cardiovascular: Yes: Regular Rate and Rhythm Respiratory: Yes: CTA Bilaterally Gastrointestinal: Yes: Normal Bowel Sounds, Soft Genitourinary: Yes: WNL Musculoskeletal: Yes: WNL Extremities: Yes: Amputation (Toe amputation, no tenderness or erythema) Wound/Incision: Yes: Clean/Dry Neurological: Yes: Alert, Oriented Psychiatric: Yes: Alert Labs: CBC, BMP 01/20/17 07:20 01/20/17 07:20 INR, PTT INR 1.12 (0.82-1.09) 01/14/17 20:55 Problem List - Problems (1) Osteomyelitis Code(s): M86.9 - OSTEOMYELITIS, UNSPECIFIED Qualifiers: Osteomyelitis type: chronic, with draining sinus Osteomyelitis location : foot Laterality: left Qualified Code(s): M86.472 - Chronic osteomyelitis with draining sinus, left ankle and foot (2) Cellulitis Code(s): L03.90 - CELLULITIS, UNSPECIFIED (3) Diabetic foot Code(s): E11.8 - TYPE 2 DIABETES MELLITUS WITH UNSPECIFIED COMPLICATIONS Assessment/Plan Pt remains stable, s/p amputation awaiting bone biopsy results continue Zosyn for now will be re-evaluated tomorrow
--- NOTE | 2017-01-24 11:16 | PN ---
Progress Note (short form) - Note Progress Note: Subjective: The patient was seen at the bedside, did not want to be seen today Current Medications Generic Name Dose Route Start Last Admin Trade Name Mkq PRN Reason Stop Dose Admin Ascorbic Acid 250 mg 01/22/17 10:00 01/24/17 10:37 Vitamin C - PO 250 mg DAILY GERARDO Administration Aspirin 81 mg 01/21/17 10:00 01/24/17 10:37 Asa - PO 81 mg DAILY GERARDO Administration Atorvastatin Calcium 40 mg 01/20/17 22:00 01/23/17 21:40 Lipitor - PO 40 mg HS GERARDO Administration Clopidogrel Bisulfate 75 mg 01/21/17 10:00 01/24/17 10:37 Plavix - PO 75 mg DAILY GERARDO Administration Heparin Sodium (Porcine) 5,000 unit 01/21/17 22:00 01/24/17 06:04 Heparin - SQ 5,000 unit TID GERARDO Administration Piperacillin Sod/Tazobactam 50 mls @ 100 mls/hr 01/20/17 18:00 01/24/17 10:37 Sod 3.375 gm/ Dextrose IVPB 100 mls/hr Q8H-IV GERARDO Administration Protocol Lactated Ringer's 1,000 mls @ 125 mls/hr 01/20/17 17:30 01/23/17 17:44 Lactated Ringers Solution IV Not Given ASDIR GERARDO Insulin Aspart 1 vial 01/20/17 22:00 01/24/17 06:04 Novolog Vial Sliding Scale - SQ Not Given ACHS [facility] Protocol Metoprolol Succinate 50 mg 01/21/17 10:00 01/24/17 10:37 Toprol Xl - PO 50 mg DAILY GERARDO Administration Multivitamins/Minerals/Vitamin C 1 tab 01/22/17 10:00 01/24/17 10:37 Tab-A-Vit - PO 1 tab DAILY GERARDO Administration Oxycodone HCl 5 mg 01/23/17 18:32 01/24/17 06:05 Roxicodone - PO 5 mg Q4H PRN Administration PAIN Objective: Vital Signs Period Temp Pulse Resp BP Sys/Herron Pulse Ox Last 24 Hr 98.2 F-98.7 F 75-86 20-20 133-148/60-95 100 Physical Exam: Patient refused CBCD WBC 7.6 K/mm3 (4.0-10.0) 01/20/17 07:20 RBC 3.68 M/mm3 (4.00-5.60) L 01/20/17 07:20 Hgb 9.6 GM/dL (11.7-16.9) L 01/20/17 07:20 Hct 29.7 % (35.4-49) L 01/20/17 07:20 MCV 80.6 fl (80-96) 01/20/17 07:20 MCHC 32.5 g/dl (32.0-35.9) 01/20/17 07:20 RDW 14.4 % (11.9-15.9) 01/20/17 07:20 Plt Count 344 K/MM3 (134-434) 01/20/17 07:20 MPV 7.9 fl (7.5-11.1) 01/20/17 07:20 CMP Sodium 138 mmol/L (136-145) 01/20/17 07:20 Potassium 4.1 mmol/L (3.5-5.1) 01/20/17 07:20 Chloride 105 mmol/L (98-107) 01/20/17 07:20 Carbon Dioxide 24 mmol/L (21-32) 01/20/17 07:20 Anion Gap 9 (8-16) 01/20/17 07:20 BUN 13 mg/dL (7-18) 01/20/17 07:20 Creatinine 1.0 mg/dL (0.7-1.3) 01/20/17 07:20 Creat Clearance w eGFR > 60 (>60) 01/20/17 07:20 Random Glucose 140 mg/dL (74-106) H 01/20/17 07:20 Calcium 8.6 mg/dL (8.5-10.1) 01/20/17 07:20 Total Bilirubin 0.7 mg/dL (0.2-1.0) D 01/20/17 07:20 AST 9 U/L (15-37) L 01/20/17 07:20 ALT 14 U/L (12-78) 01/20/17 07:20 Alkaline Phosphatase 69 U/L (45-117) 01/20/17 07:20 Total Protein 6.6 g/dl (6.4-8.2) 01/20/17 07:20 Albumin 2.8 g/dl (3.4-5.0) L 01/20/17 07:20 Microbiology 01/14/17 20:55 Blood - Peripheral Venous Blood Culture - Final NO GROWTH AFTER 5 DAYS INCUBATION 01/14/17 20:55 Blood - Peripheral Venous Blood Culture - Final NO GROWTH AFTER 5 DAYS INCUBATION 01/14/17 21:05 Toe - Left Second Gram Stain - Final 01/14/17 21:05 Toe - Left Second Wound Culture - Final Staphylococcus Aureus Acinetobacter Baumannii/Haemol Enterobacter Cloacae 01/14/17 20:48 Urine - Urine Clean Catch Urine Culture - Final NO GROWTH OBTAINED Assessment: This is a 61 year old male with PMHx of DM, right great toe amputation, 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 Plan: 1) Vascular: Severe distal flow deficit to left foot - S/p revascularization left posterior tibial artery with atherectomy and angioplasty on 01/18 - Continue Plavix - Continue ASA - Appreciate vascular surgery consult 2) ID: Left food second toe osteomyelitis, gangrene - Amputation on 01/20/17 - Left message with pathology for surgical pathology report - Spoke to Dr. Florez who states can be discharged on po abx and that infected area removed - Continue Zosyn - Spoke to ID who states would like to wait for surgical pathology - Appreciate ID consult 3) Cardiology: HTN - Continue Toprol XL HLD - Continue Lipitor 4) Endocrine: DM - BGM ACHS - ISS ACHS 5) : CHARLES - Resolved 6) F/E/N: - Diabetic, sodium controlled diet - Monitor electrolytes 7) Prophylaxis: - Heparin 5,000u sq tid - OOB ambulating 8) Dispo: - Requires continued inpatient care CODE STATUS: FULL CODE Visit type - Emergency Visit Emergency Visit: Yes ED Registration Date: 01/14/17 Care time: The patient presented to the Emergency Department on the above date and was hospitalized for further evaluation of their emergent condition. - New Patient This patient is new to me today: No - Critical Care Critical Care patient: No
[2017-01-24] MEDS: LACTATED RINGERS SOLUTION 1,000 ML IV SCH (18:14)
[2017-01-24] MEDS: ATORVASTATIN CA 40 MG TABLET (FP) PO SCH (21:48)
[2017-01-25] MEDS: PIPERACILLIN/TAZOB 3.375 GM 3.375 GM in DEXTROSE 5%-WATER - 50 ML IVPB SCH ×2 (02:04→12:15)
[2017-01-25] MEDS: HEPARIN NA (PORCINE) 5,000 UNITS/ML 1ML VIAL SQ SCH ×2 (06:25→15:24)
[2017-01-25] MEDS: oxyCODONE HCL 5 MG TABLET PO PRN (07:08)
[2017-01-25] MEDS: INSULIN SLIDING SCALE (NOVOLOG) 1 VIAL SQ SCH ×2 (07:34→11:12)
[2017-01-25] MEDS ORDERED: INSULIN (NOVOLOG) ASPART 100 UNITS/ML 10ML VIAL ONE (10:37)
[2017-01-25] MEDS: ASPIRIN 81 MG CHEWABLE TABLETS PO SCH (11:05)
[2017-01-25] MEDS: MULTIVITAMINS (DAILY MVI) TABLET (FP) PO SCH (11:06)
[2017-01-25] MEDS: CLOPIDOGREL BISULFATE 75 MG TABLET (FP) PO SCH (11:06)
[2017-01-25] MEDS: METOPROLOL SUCCINATE 50 MG TAB.SR.24H (FP) PO SCH (11:06)
[2017-01-25] MEDS: ASCORBIC ACID 250 MG TABLET (FP) PO SCH (12:14)
[2017-01-25] MEDS ORDERED: DEXTROSE 5%-WATER - 50 ML IVPB ONE (12:15)
[2017-01-25] MEDS ORDERED: PIPERACILLIN/TAZOBACTAM 3.375 GM VIAL IVPB ONE (12:15)
--- NOTE | 2017-01-25 13:50 | PN ---
Progress Note, Physician History of Present Illness: doing well no complaints - Current Medication List Current Medications: Active Medications Ascorbic Acid (Vitamin C -) 250 mg PO DAILY [facility] Last Admin: 01/25/17 12:14 Dose: 250 mg Aspirin (Asa -) 81 mg PO DAILY [facility] Last Admin: 01/25/17 11:05 Dose: 81 mg Atorvastatin Calcium (Lipitor -) 40 mg PO HS [facility] Last Admin: 01/24/17 21:48 Dose: 40 mg Clopidogrel Bisulfate (Plavix -) 75 mg PO DAILY [facility] Last Admin: 01/25/17 11:06 Dose: 75 mg Heparin Sodium (Porcine) (Heparin -) 5,000 unit SQ TID [facility] Last Admin: 01/25/17 06:25 Dose: 5,000 unit Piperacillin Sod/Tazobactam (Sod 3.375 gm/ Dextrose) 50 mls @ 100 mls/hr IVPB Q8H-IV GERARDO PRN Reason: Protocol Last Admin: 01/25/17 12:15 Dose: 100 mls/hr Lactated Ringer's (Lactated Ringers Solution) 1,000 mls @ 125 mls/hr IV ASDIR [facility] Last Admin: 01/24/17 18:14 Dose: Not Given Insulin Aspart (Novolog Vial Sliding Scale -) 1 vial SQ ACHS [facility] PRN Reason: Protocol Last Admin: 01/25/17 11:12 Dose: 4 units Metoprolol Succinate (Toprol Xl -) 50 mg PO DAILY [facility] Last Admin: 01/25/17 11:06 Dose: 50 mg Multivitamins/Minerals/Vitamin C (Tab-A-Vit -) 1 tab PO DAILY [facility] Last Admin: 01/25/17 11:06 Dose: 1 tab Oxycodone HCl (Roxicodone -) 5 mg PO Q4H PRN PRN Reason: PAIN Last Admin: 01/25/17 07:08 Dose: 5 mg - Objective Vital Signs: Vital Signs Temperature 98.2 F 01/25/17 06:00 Pulse Rate 80 01/25/17 06:00 Respiratory Rate 16 01/25/17 06:00 Blood Pressure 151/85 01/25/17 06:00 O2 Sat by Pulse Oximetry (%) 100 01/24/17 21:00 Constitutional: Yes: No Distress, Calm Neck: Yes: Supple Cardiovascular: Yes: Regular Rate and Rhythm Respiratory: Yes: Regular, CTA Bilaterally Gastrointestinal: Yes: Normal Bowel Sounds, Soft Musculoskeletal: Yes: WNL Extremities: Yes: Other Integumentary: Yes: Other Wound/Incision: Yes: Dressing Dry and Intact Neurological: Yes: Alert, Oriented Psychiatric: Yes: Alert, Oriented Labs: CBC, BMP 01/20/17 07:20 01/20/17 07:20 INR, PTT INR 1.12 (0.82-1.09) 01/14/17 20:55 Assessment/Plan Problem List - Problem (1) Osteomyelitis Code(s): M86.9 - OSTEOMYELITIS, UNSPECIFIED (2) Diabetic foot Code(s): E11.8 - TYPE 2 DIABETES MELLITUS WITH UNSPECIFIED COMPLICATIONS (3) Diabetes Code(s): E11.9 - TYPE 2 DIABETES MELLITUS WITHOUT COMPLICATIONS (4) Hypertension Code(s): I10 - ESSENTIAL (PRIMARY) HYPERTENSION (5) HLD (hyperlipidemia) Code(s): E78.5 - HYPERLIPIDEMIA, UNSPECIFIED this patient has been receiving hyperbaric for couple of weeks plan await for surgical pathology please find out if the cx were send or not if send and if negative patient can go home without abx if not send the switch patient on oral augmentin 875 mg twice a day for 2 weeks and levaquin 750mg daily for 2 weeks
[2017-01-25 13:53] VITALS: BP 122/59; PULSE 77; TEMP 98.1
--- NOTE | 2017-01-25 14:28 | DS ---
Physical Exam: SUBJECTIVE: Patient seen and examined. States he feels well, denies pain or discomfort. OBJECTIVE: Pathology report obtained from pathology department Report reviewed with Dr. Omalley who amended his note for this patient to receive a total of 3 weeks of PO antibiotics of Augmentin 875mg BID and Levaquin 750mg daily (January 25 through February 14) Wound care instructions in d/c plan. Appointment with wound care clinic on Wednesday made by LANDY. Vital Signs Period Temp Pulse Resp BP Sys/Herron Pulse Ox Last 24 Hr 97.4 F-98.2 F 77-81 16-20 122-151/59-89 100 PHYSICAL EXAM GENERAL: Awake, alert, and fully oriented, in no acute distress. HEAD: Normal with no signs of trauma. EYES: Pupils equal, round and reactive to light, extraocular movements intact, sclera anicteric, conjunctiva clear. No lid lag. EARS, NOSE, THROAT: Ears normal, nares patent, oropharynx clear without exudates. Moist mucous membranes. NECK: Normal range of motion, supple without lymphadenopathy, JVD, or masses. LUNGS: Breath sounds equal, clear to auscultation bilaterally. No wheezes, and no crackles. No accessory muscle use. HEART: Regular rate and rhythm ABDOMEN: Soft, nontender, not distended, normoactive bowel sounds, no guarding, no rebound, no masses. No hepatomegaly or splenomegaly. MUSCULOSKELETAL: Normal range of motion at all joints. No bony deformities or tenderness. No CVA tenderness. LOWER EXTREMITIES: +2pitting edema of right leg>foot, +2 pitting edema of left leg >foot. S/p amputation of the left foot 2nd toe on 01/20 - for d/c today with a total of 3 weeks of antibiotics NEUROLOGICAL: Normal speech. Gait not observed. PSYCHIATRIC: Cooperative. Good eye contact. Appropriate mood and affect. LABS Laboratory Results - last 24 hr 01/24/17 01/24/17 01/25/17 16:18 21:47 06:25 POC Glucometer 136 189 117 01/25/17 11:09 POC Glucometer 218 HOSPITAL COURSE: Date of Admission:01/14/17 Date of Discharge: 01/25/17 ASSESSMENT/PLAN: Patient is a 61 year old male with a significant medical history of hypertension , hyperlipidemia, diabetes and right great toe amputation. 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 Patient reports having diabetic ulcer's in the past, with amputation of his right great toe. Patient denies fever, chills or shortness of breath. Pathology report dated 01/21/2017: Second toe, left foot amputation: ulcerated and necrotic skin and underlying soft tissue with acute necrotizing and chronic inflammation and foci of gangrenous necrosis. Underlying bone with acute and chronic osteomyelitis Necrotizing inflammation focally extends to the skin an soft tissue at the resection margin Bone at the resection margin is evidence of chronic osteomylitis ID: Left second diabetic toe ulceration and cellulitis, +slough - s/p left foot 2nd toe amputation on 01/20 Assessment/Plan: s/p left tibial revascularization on 01/18, with left foot 2nd toe amputation on 01/20 WBC within normal limits, vitals stable To complete 3 weeks of Augmentin 875mg BID and Levaquin 750mg daily as per ID recommendations On Plavix and ASA Wound care at outpatient clinic Cardiology: Hypertension - chronic Assessment/Plan: resume cardiac meds as an outpatient Hyperlipidemiav - chronic Assessment/Plan: On Lipitor Endocrine: Diabetes Mellitus - chronic Assessment/Plan: Resume home meds Renal: CHARLES - Assessment/Plan: Renal function now stable Dispositon: Discharge home to complete a total of 3 weeks of PO antibiotics ( augmentin 875mg BID, Levaquin 750mg daily). Full code. Minutes to complete discharge: 60 Discharge Summary Reason For Visit: OSTEOMYELITIS Current Active Problems Osteomyelitis (Acute) Condition: Stable - Instructions Diet, Activity, Other Instructions: Mr. Manning: Based on your pathology report, you will need two antibiotics for a total of 3 weeks as follows: Augmentin 875mg twice per day for 3 weeks (From January 25 through ) Levaquin 750mg daily for 3 weeks (From January 25 through ) Please note that we have also ordered an Acidophilis twice daily so that it helps your stomach tolerate both these antibiotics. You can also take the Acidophilis over the counter. Please follow wound care at the outpatient clinic at [place]. A follow up appointment has been made for you. WOUND CARE: Dry bandage to foot incision every 2 days. Keep weight off front of foot when walking. Please call with any questions you may have. Jeannie Vargas [place] [phone] Referrals: Zac Encarnacion [Primary Care Provider] - Ty Florez MD [Staff Physician] - 2 Weeks Disposition: HOME - Home Medications Comprehensive Discharge Medication List: Ambulatory Orders Insulin (Levemir) [Levemir Flexpen -] 6 units SQ BID 01/23/14 Aspirin [ASA -] 81 mg PO DAILY 10/22/16 Atorvastatin Ca [Lipitor] 40 mg PO HS 10/22/16 Hydrochlorothiazide [Hctz -] 25 mg PO DAILY 10/22/16 Losartan Potassium 50 mg PO DAILY 10/22/16 Metformin HCl [Glucophage] 1,000 mg PO BID 10/22/16 Clopidogrel Bisulfate [Plavix -] 75 mg PO DAILY #30 tablet 10/29/16 Collagenase Clostridium Hist. [Santyl -] 1 applic TP DAILY #1 tube 10/29/16 Metoprolol Succinate [Toprol XL -] 50 mg PO DAILY #30 tab 10/29/16 This patient is new to me today: No Emergency Visit: Yes ED Registration Date: 01/14/17 Care time: The patient presented to the Emergency Department on the above date and was hospitalized for further evaluation of their emergent condition. Critical Care patient: No - Discharge Referral Referred to [facility] Med P.C.: No
--- NOTE | 2017-01-25 15:06 | PATH ---
Surgical Pathology Report Patient Name: DEEPAK SHAH [facility]. Rec. #: [id number] /Age/Gender: 1955 (Age: 61) / M Account: [id number] Location: [address] [place] [address]/[facility] Taken: 01/21/2017 Received: 01/21/2017 Reported: 01/25/2017 Physicians: Ty Florez M.D. Specimen(s) Received 2ND TOE LEFT FOOT Clinical History Gangrene left foot second toe Final Diagnosis SECOND TOE, LEFT FOOT, AMPUTATION: ULCERATED AND NECROTIC SKIN AND UNDERLYING SOFT TISSUE WITH ACUTE NECROTIZING AND CHRONIC INFLAMMATION AND FOCI OF GANGRENOUS NECROSIS. UNDERLYING BONE WITH ACUTE AND CHRONIC OSTEOMYELITIS. NECROTIZING INFLAMMATION FOCALLY EXTENDS TO THE SKIN AND SOFT TISSUE AT THE RESECTION MARGIN. BONE AT THE RESECTION MARGIN WITH EVIDENCE OF CHRONIC OSTEOMYELITIS. Electronically Signed Damien Ospina M.D. Gross Description Received in formalin labeled "left foot second toe" is a 4.0 x 2.4 x 2.2 cm toe amputation specimen. The epidermal surface displays a 3.5 x 2.0 cm nicholson-black, ulcerated lesion focally at less than 0.1 cm from the skin and soft tissue margin. The lesion appears to involve the underlying bone. [employer] sections are submitted in 3 cassettes as follows: 1-lesion with underlying bone, following decalcification; 2-bone margin, following decalcification; 3-skin and soft tissue margin. 01/22/2017 saudi01/22/2017
== END 2017-01-25 17:20 | disposition home or self-care (01) | DRG 173 ==
LOC: JER 19:53 → JERBED 23:06 → UNDOADMIN 23:10 → JERBED 23:10 → J6S 01-15 00:55 → JERBED 01-15 00:55 → J6S 01-19 16:56
PROVIDERS: ADMIT Internal Medicine; ATTEND Nurse Practitioner Family
PROC: 047S3ZZ Dilation of Left Posterior Tibial Artery, Percutaneous Approach (ICD-10-PCS; 2017-01-18)
PROC: 3E033GC Introduction of Other Therapeutic Substance into Peripheral Vein, Percutaneous Approach (ICD-10-PCS; 2017-01-18)
PROC: 04CS3ZZ Extirpation of Matter from Left Posterior Tibial Artery, Percutaneous Approach (ICD-10-PCS; principal; 2017-01-18 15:00)
PROC: 0Y6S0Z1 Detachment at Left 2nd Toe, High, Open Approach (ICD-10-PCS; 2017-01-20)
DX: E11.52 Type 2 diabetes mellitus with diabetic peripheral angiopathy with gangrene (principal); I70.292 Other atherosclerosis of native arteries of extremities, left leg; E11.69 Type 2 diabetes mellitus with other specified complication; M86.472 Chronic osteomyelitis with draining sinus, left ankle and foot; I10 Essential (primary) hypertension; E78.5 Hyperlipidemia, unspecified; N17.9 Acute kidney failure, unspecified; I99.8 Other disorder of circulatory system; E11.621 Type 2 diabetes mellitus with foot ulcer; L03.032 Cellulitis of left toe; I77.1 Stricture of artery; L97.529 Non-pressure chronic ulcer of other part of left foot with unspecified severity; Z87.891 Personal history of nicotine dependence; Z89.411 Acquired absence of right great toe; Z79.4 Long term (current) use of insulin
CPT/HCPCS: 36415; 76000-TC; 80048; 80053; 81003; 81015; 83036; 83605; 85025; 85610; 85651; 86140; 87040; 87070; 87086; 87186; 87205; 88305-TC; 88311-TC; 93005; 93010; 93923; 94760; 99283-25; G0277; J1644

== ENCOUNTER 2017-03-02 17:43 | Emergency (ER) | payer SELFPAY ==
[2017-03-02 18:08] VITALS: BP 158/94; PULSE 101; TEMP 97.6; BMI 34.2
--- NOTE | 2017-03-02 19:48 | PDOC ---
History of Present Illness - General Chief Complaint: Wound Stated Complaint: WOUND INFECTION Time Seen by Provider: 03/02/17 18:56 History Source: Patient Exam Limitations: No Limitations - History of Present Illness Initial Comments: 03/02/17 19:44 Patient is a 61-year-old male with history of hypertension, diabetes, high cholesterol, left second toe amputation. Patient here for evaluation of abrasion to toe has history of diabetes with multiple amputations and was told if he had any injury or abrasion to toe will need to be checked out to prevent infection. Patient reports wearing new shoes and sustained an abrasion to the left first toe. Allergies: No known allergies Medications: See medication list Family History: Non-contributory Social History: Denies smoking, alcohol use, or IVDU Review of Systems GENERAL/CONSTITUTIONAL: No fever or chills. No weakness. No weight change. HEAD, EYES, EARS, NOSE AND THROAT: No change in vision. No ear pain or discharge. No sore throat. CARDIOVASCULAR: No chest pain or shortness of breath. RESPIRATORY: No cough, wheezing, or hemoptysis. GASTROINTESTINAL: No nausea, vomiting, diarrhea or constipation. No rectal bleeding. GENITOURINARY: No dysuria, frequency, or change in urination. MUSCULOSKELETAL: No joint or muscle swelling or pain. No neck or back pain. SKIN : Abrasion to dorsum of left first toe Physical Exam: GENERAL: The patient is awake, alert, and fully oriented, in no acute distress. LUNGS: Breath sounds equal, clear to auscultation bilaterally. No wheezes, and no crackles. HEART: Regular rate and rhythm, normal S1 and S2 without murmur, rub or gallop. ABDOMEN: Soft, nontender, normoactive bowel sounds. No guarding, no rebound. No masses. No bruising or abrasions MUSCULOSKELETAL: Normal range of motion, no edema. No clubbing or cyanosis. No cords, erythema, or tenderness. No CVA Tenderness with fist. SKIN: Warm, Dry, normal turgor, no rashes or lesions noted. Dry, healing abrasion to dorsum of left great toe, no surrounding erythema edema, no streaking, no evidence of cellulitis. Past History - Past Medical History Allergies/Adverse Reactions: Allergies Allergy/AdvReac Type Severity Reaction Status Date / Time No Known Allergies Allergy Verified 03/02/17 18:03 Home Medications: Ambulatory Orders Insulin (Levemir) [Levemir Flexpen -] 6 units SQ BID 01/23/14 Aspirin [ASA -] 81 mg PO DAILY 10/22/16 Atorvastatin Ca [Lipitor] 40 mg PO HS 10/22/16 Hydrochlorothiazide [Hctz -] 25 mg PO DAILY 10/22/16 Losartan Potassium 50 mg PO DAILY 10/22/16 Metformin HCl [Glucophage] 1,000 mg PO BID 10/22/16 Clopidogrel Bisulfate [Plavix -] 75 mg PO DAILY #30 tablet 10/29/16 Collagenase Clostridium Hist. [Santyl -] 1 applic TP DAILY #1 tube 10/29/16 Metoprolol Succinate [Toprol XL -] 50 mg PO DAILY #30 tab 10/29/16 Amox-Tr/K Cl [Augmentin - 875Mg Tablet] 1 tab PO BID #42 tablet 01/25/17 Ascorbic Acid [Vitamin C -] 250 mg PO DAILY #30 tablet 01/25/17 L. Acidophilus/Pectin, Filley [Acidophilus Probiotic Capsule] 1 each PO BID #42 capsule 01/25/17 Levofloxacin [Levaquin] 750 mg PO DAILY #21 tab 01/25/17 Multivitamins [Multivit ([facility] Formulary)] 1 tab PO DAILY #30 tab 01/25/17 Anemia: No Asthma: No Cancer: No Cardiac Disorders: Yes CVA: No COPD: No CHF: No Dementia: No Diabetes: Yes GI Disorders: No Disorders: No HTN: Yes Hypercholesterolemia: Yes Liver Disease: No Seizures: No Thyroid Disease: No - Surgical History Abdominal Surgery: No Appendectomy: No Cardiac Surgery: No Cholecystectomy: No Lung Surgery: No Neurologic Surgery: No Orthopedic Surgery: No - Immunization History Immunization Up to Date: Yes - Suicide/Smoking/Psychosocial Hx Smoking History: Never smoked Have you smoked in the past 12 months: No Information on smoking cessation initiated: No Hx Alcohol Use: No Drug/Substance Use Hx: No Substance Use Type: None Hx Substance Use Treatment: No *Physical Exam - Vital Signs Last Vital Signs Temp Pulse Resp BP Pulse Ox 97.6 F 101 H 16 158/94 97 03/02/17 18:03 03/02/17 18:03 03/02/17 18:03 03/02/17 18:03 03/02/17 18:03 Medical Decision Making - Medical Decision Making 03/02/17 19:48 A/P: Patient here for evaluation of abrasion to left toe was told that if he had any injury or openings to his feet he needed to be evaluated right away to monitor for infection. There is no clinical evidence of infection or cellulitis patient has placed himself in surgical shoe which was appropriate. Area is dry , healing, patient has an appointment on feel it is reasonable at this time to defer use of antibiotics because of no infection patient to keep surgical shoe on, area covered to prevent friction. Follow-up on . *DC/Admit/Observation/Transfer Diagnosis at time of Disposition: Abrasion of toe, left Qualifiers: Encounter type: initial encounter Qualified Code(s): S90.415A - Abrasion, left lesser toe(s), initial encounter - Discharge Dispostion Disposition: HOME Condition at time of disposition: Good Admit: No - Referrals Referrals: Zac Encarnacion [Primary Care Provider] - - Patient Instructions Additional Instructions: Please monitor area for any increased redness, swelling, or signs of infection. Please keep area covered until follow-up, follow-up on with podiatry
== END 2017-03-02 20:03 | disposition home or self-care (01) ==
LOC: JERFT 17:43
DX: S90.412A Abrasion, left great toe, initial encounter (principal); I10 Essential (primary) hypertension; E11.9 Type 2 diabetes mellitus without complications; Z79.4 Long term (current) use of insulin; Z79.84 Long term (current) use of oral hypoglycemic drugs; Z89.422 Acquired absence of other left toe(s); X58.XXXA Exposure to other specified factors, initial encounter; Y93.89 Activity, other specified; Y92.89 Other specified places as the place of occurrence of the external cause; Y99.8 Other external cause status
CPT/HCPCS: 99281-25

== ENCOUNTER 2022-04-13 20:48 | Emergency (ER) | payer OTHER ==
[2022-04-13 21:10] VITALS: BP 129/78; PULSE 77; RESP 19; TEMP 98.8; BMI 34.2
[2022-04-13] MEDS ORDERED: DIPHTH,PERTUSS(ACELL),TET 0.5 ML DISP.SYRIN IM ONE ×2 (21:21→21:27)
== END 2022-04-14 01:03 | disposition home or self-care (01) ==
LOC: JER 20:48
PROC: 3E0234Z Introduction of Serum, Toxoid and Vaccine into Muscle, Percutaneous Approach (ICD-10-PCS; principal; 2022-04-13)
DX: S91.114A Laceration without foreign body of right lesser toe(s) without damage to nail, initial encounter (principal); W22.8XXA Striking against or struck by other objects, initial encounter
CPT/HCPCS: 73630-TC-RT-FY; 90471; 90715; 99283-25

== ENCOUNTER 2022-04-17 10:18 | Inpatient (IN) | payer OTHER ==
[2022-04-17 10:41] VITALS: RESP 18
[2022-04-17] MEDS ORDERED: VANCOMYCIN 1 GM in D5W (PRE-DOCKED) 1,000 MG/250 ML IVPB ONE (13:22)
[2022-04-17] MEDS ORDERED: PIPERACILLIN/TAZOB 3.375 GM 3.375 GM in DEXTROSE 5%-WATER - 50 ML IVPB ONE (13:23)
[2022-04-17] MEDS ORDERED: PIPERACILLIN/TAZOB 3.375 GM 3.375 GM/50 ML BAG IVPB ONE (14:04)
[2022-04-17] MEDS ORDERED: VANCOMYCIN/WATER FOR INJ (PEG) 1,000 MG/200 ML BAG IVPB ONE (14:04)
[2022-04-17 14:39] LABS: HEMATOCRIT 35.1 % (35.4-49); HEMOGLOBIN 11.1 GM/dL (11.7-16.9); MCH 27.1 pg (25.7-33.7); MCHC 31.5 g/dl (32.0-35.9); MEAN CELL VOLUME 85.9 fl (80-96); MEAN PLT VOLUME 9.3 fl (7.5-11.1); PLATELET COUNT 199 10^3/uL (134-434); RBC 4.09 M/mm3 (4.00-5.60); RDW 14.7 % (11.9-15.9); WHITE BLOOD COUNT 5.8 K/mm3 (4.0-10.0)
[2022-04-17 14:46] LABS: INR 1.12 (0.83-1.09); PROTHROMBIN TIME (PATIENT) 12.9 SEC (9.7-13.0)
[2022-04-17 14:49] LABS: ACTIVATED PTT 26.1 SECONDS (25.2-36.5)
[2022-04-17 15:01] LABS: ALBUMIN 3.4 g/dl (3.4-5.0); BLOOD UREA NITROGEN 32.4 mg/dL (7-18); CALCIUM 9.1 mg/dL (8.5-10.1)
[2022-04-17 15:05] LABS: CREATININE 2.1 mg/dL (0.55-1.3)
[2022-04-17 15:06] LABS: BILIRUBIN,TOTAL 0.7 mg/dL (0.2-1); TOT PROT 7.6 g/dl (6.4-8.2)
[2022-04-17] MEDS ORDERED: SODIUM CHLORIDE 1,000 ML IV STA (15:22)
[2022-04-17] MEDS: SODIUM CHLORIDE 0.45% 1,000 ML IV SCH (20:14)
[2022-04-17] MEDS ORDERED: INSULIN (NOVOLOG) ASPART 100 UNITS/ML 10ML VIAL ONE (21:39)
[2022-04-17] MEDS ORDERED: INSULIN (LEVEMIR) 100 UNITS/ML UNITS SQ SCH (22:00)
[2022-04-17] MEDS: LACTOBACILLUS ACIDOPHILUS 1 TABLET PO SCH (22:13)
[2022-04-17] MEDS: ATORVASTATIN CA 40 MG TABLET (FP) PO SCH (22:13)
[2022-04-17] MEDS: HEPARIN NA (PORCINE) 5,000 UNITS/ML 1ML VIAL SQ SCH (22:14)
[2022-04-17] MEDS: INSULIN (LEVEMIR) 100 UNITS/ML UNITS SQ SCH (22:14)
[2022-04-17] MEDS: INSULIN SLIDING SCALE (NOVOLOG) 1 VIAL SQ SCH (22:18)
[2022-04-18] MEDS: INSULIN SLIDING SCALE (NOVOLOG) 1 VIAL SQ SCH ×4 (06:02→21:46)
[2022-04-18 08:18] LABS: BASO % 1.1 % (0-2.0); EOS % 3.9 % (0-4.5); HEMATOCRIT 38.2 % (35.4-49); HEMOGLOBIN 12.1 GM/dL (11.7-16.9); LYMPH % 28.2 % (8-40); MCH 27.2 pg (25.7-33.7); MCHC 31.6 g/dl (32.0-35.9); MEAN CELL VOLUME 86.2 fl (80-96); MEAN PLT VOLUME 9.6 fl (7.5-11.1); MONO % 9.7 % (3.8-10.2); NEUT % 57.1 % (42.8-82.8); PLATELET COUNT 224 10^3/uL (134-434); RBC 4.43 M/mm3 (4.00-5.60); RDW 14.6 % (11.9-15.9); WHITE BLOOD COUNT 5.1 K/mm3 (4.0-10.0)
[2022-04-18 08:58] LABS: BLOOD UREA NITROGEN 33.8 mg/dL (7-18)
[2022-04-18] MEDS: HEPARIN NA (PORCINE) 5,000 UNITS/ML 1ML VIAL SQ SCH ×2 (10:41→21:41)
[2022-04-18] MEDS: MULTIVITAMINS (DAILY MVI) TABLET (FP) PO SCH (10:41)
[2022-04-18] MEDS: LACTOBACILLUS ACIDOPHILUS 1 TABLET PO SCH ×2 (10:41→21:40)
[2022-04-18] MEDS: ASPIRIN 81 MG CHEWABLE TABLETS PO SCH (10:42)
[2022-04-18] MEDS: CLOPIDOGREL BISULFATE 75 MG TABLET (FP) PO SCH (10:42)
[2022-04-18] MEDS: ASCORBIC ACID 250 MG TABLET (FP) PO SCH (10:44)
[2022-04-18] MEDS: PIPERACILLIN/TAZOB 3.375 GM 3.375 GM in DEXTROSE 5%-WATER - 50 ML IVPB SCH ×2 (13:11→18:15)
[2022-04-18] MEDS: SODIUM CHLORIDE 0.45% 1,000 ML IV SCH ×2 (18:16→21:37)
[2022-04-18] MEDS: ATORVASTATIN CA 40 MG TABLET (FP) PO SCH (21:40)
[2022-04-18] MEDS: INSULIN (LEVEMIR) 100 UNITS/ML UNITS SQ SCH (21:44)
[2022-04-19] MEDS: PIPERACILLIN/TAZOB 3.375 GM 3.375 GM in DEXTROSE 5%-WATER - 50 ML IVPB SCH ×3 (01:23→18:16)
[2022-04-19] MEDS: INSULIN SLIDING SCALE (NOVOLOG) 1 VIAL SQ SCH ×4 (06:06→22:27)
[2022-04-19 09:34] LABS: EOS % 4.7 % (0-4.5); HEMATOCRIT 36.1 % (35.4-49); HEMOGLOBIN 11.7 GM/dL (11.7-16.9); LYMPH % 25.8 % (8-40); MAGNESIUM 2.2 mg/dL (1.8-2.4); MCH 27.3 pg (25.7-33.7); MCHC 32.3 g/dl (32.0-35.9); MEAN CELL VOLUME 84.4 fl (80-96); MEAN PLT VOLUME 9.2 fl (7.5-11.1); MONO % 11.1 % (3.8-10.2); NEUT % 57.4 % (42.8-82.8); PLATELET COUNT 196 10^3/uL (134-434); RBC 4.28 M/mm3 (4.00-5.60); RDW 14.8 % (11.9-15.9); WHITE BLOOD COUNT 5.4 K/mm3 (4.0-10.0)
[2022-04-19] MEDS: MULTIVITAMINS (DAILY MVI) TABLET (FP) PO SCH (10:33)
[2022-04-19] MEDS: ASPIRIN 81 MG CHEWABLE TABLETS PO SCH (10:33)
[2022-04-19] MEDS: LACTOBACILLUS ACIDOPHILUS 1 TABLET PO SCH ×2 (10:33→22:11)
[2022-04-19] MEDS: CLOPIDOGREL BISULFATE 75 MG TABLET (FP) PO SCH (10:33)
[2022-04-19] MEDS: HEPARIN NA (PORCINE) 5,000 UNITS/ML 1ML VIAL SQ SCH ×2 (10:33→22:12)
[2022-04-19] MEDS: ASCORBIC ACID 250 MG TABLET (FP) PO SCH (10:34)
[2022-04-19 11:14] LABS: ALBUMIN 3.2 g/dl (3.4-5.0); BLOOD UREA NITROGEN 28.7 mg/dL (7-18); CALCIUM 8.7 mg/dL (8.5-10.1)
[2022-04-19 11:18] LABS: CREATININE 1.9 mg/dL (0.55-1.3)
[2022-04-19 11:19] LABS: BILIRUBIN,TOTAL 0.9 mg/dL (0.2-1); TOT PROT 7.1 g/dl (6.4-8.2)
[2022-04-19 13:54] VITALS: BMI 33.8
[2022-04-19] MEDS ORDERED: FUROSEMIDE 40 MG TABLET (FP) PO ONE (13:54)
[2022-04-19] MEDS: ACETAMINOPHEN 325 MG TABLET (FP) PO PRN (20:11)
[2022-04-19] MEDS ORDERED: INSULIN (NOVOLOG) ASPART 100 UNITS/ML 10ML VIAL ONE (22:06)
[2022-04-19] MEDS: ATORVASTATIN CA 40 MG TABLET (FP) PO SCH (22:11)
[2022-04-19] MEDS: INSULIN (LEVEMIR) 100 UNITS/ML UNITS SQ SCH (22:25)
[2022-04-20] MEDS: PIPERACILLIN/TAZOB 3.375 GM 3.375 GM in DEXTROSE 5%-WATER - 50 ML IVPB SCH ×2 (01:57→09:49)
[2022-04-20] MEDS: INSULIN SLIDING SCALE (NOVOLOG) 1 VIAL SQ SCH ×2 (06:26→12:53)
[2022-04-20 06:49] VITALS: PULSE 77
[2022-04-20 09:00] VITALS: BP 143/71; TEMP 97.8
[2022-04-20 09:23] LABS: BASO % 0.3 % (0-2.0); EOS % 4.5 % (0-4.5); HEMATOCRIT 35.7 % (35.4-49); HEMOGLOBIN 11.9 GM/dL (11.7-16.9); LYMPH % 26.2 % (8-40); MCHC 33.3 g/dl (32.0-35.9); MEAN CELL VOLUME 84.1 fl (80-96); MEAN PLT VOLUME 8.8 fl (7.5-11.1); MONO % 10.8 % (3.8-10.2); NEUT % 58.2 % (42.8-82.8); PLATELET COUNT 210 10^3/uL (134-434); RBC 4.25 M/mm3 (4.00-5.60); RDW 14.6 % (11.9-15.9); WHITE BLOOD COUNT 5.2 K/mm3 (4.0-10.0)
[2022-04-20 09:42] LABS: ALBUMIN 3.2 g/dl (3.4-5.0); BLOOD UREA NITROGEN 27.6 mg/dL (7-18); MAGNESIUM 2.1 mg/dL (1.8-2.4)
[2022-04-20 09:45] LABS: CREATININE 1.9 mg/dL (0.55-1.3)
[2022-04-20 09:47] LABS: BILIRUBIN,TOTAL 0.8 mg/dL (0.2-1); TOT PROT 7.2 g/dl (6.4-8.2)
[2022-04-20] MEDS: ACETAMINOPHEN 325 MG TABLET (FP) PO PRN (09:49)
[2022-04-20] MEDS: HEPARIN NA (PORCINE) 5,000 UNITS/ML 1ML VIAL SQ SCH (09:51)
[2022-04-20] MEDS: CLOPIDOGREL BISULFATE 75 MG TABLET (FP) PO SCH (09:51)
[2022-04-20] MEDS: MULTIVITAMINS (DAILY MVI) TABLET (FP) PO SCH (09:51)
[2022-04-20] MEDS: LACTOBACILLUS ACIDOPHILUS 1 TABLET PO SCH (09:51)
[2022-04-20] MEDS: ASPIRIN 81 MG CHEWABLE TABLETS PO SCH (09:51)
[2022-04-20] MEDS: ASCORBIC ACID 250 MG TABLET (FP) PO SCH (10:12)
== END 2022-04-20 15:20 | disposition left against medical advice (07) | DRG 638 ==
LOC: JER 10:18 → JERBED 15:25 → J7W 20:53
PROVIDERS: ADMIT Internal Medicine; ATTEND Nurse Practitioner Family
DX: E11.628 Type 2 diabetes mellitus with other skin complications (principal); I13.0 Hypertensive heart and chronic kidney disease with heart failure and stage 1 through stage 4 chronic kidney disease, or unspecified chronic kidney disease; L03.115 Cellulitis of right lower limb; M86.8X7 Other osteomyelitis, ankle and foot; N17.9 Acute kidney failure, unspecified; E11.40 Type 2 diabetes mellitus with diabetic neuropathy, unspecified; E78.5 Hyperlipidemia, unspecified; E11.51 Type 2 diabetes mellitus with diabetic peripheral angiopathy without gangrene; E11.22 Type 2 diabetes mellitus with diabetic chronic kidney disease; N18.9 Chronic kidney disease, unspecified; I50.9 Heart failure, unspecified; Z89.422 Acquired absence of other left toe(s); Z89.421 Acquired absence of other right toe(s); Z79.4 Long term (current) use of insulin; I25.10 Atherosclerotic heart disease of native coronary artery without angina pectoris; Z53.29 Procedure and treatment not carried out because of patient's decision for other reasons
CPT/HCPCS: 36415; 71045-TC-FY; 73630-TC-RT-FY; 73718-TC-RT; 76775-TC; 80048; 80053; 82962; 83036; 83735; 85025; 85027; 85610; 85651; 85730; 86140; 87040; 87070; 87186; 87205; 93926-TC; 99285-25; C9803-CS; J1644; U0003; U0005

== ENCOUNTER 2023-12-25 17:27 | Inpatient (IN) | payer OTHER ==
[2023-12-25] MEDS ORDERED: DEXTROSE 50%-WATER 25 GM/50 ML DISP.SYRIN ONE (17:47)
[2023-12-25] MEDS: DEXTROSE 50%-WATER 25 GM/50 ML DISP.SYRIN IVPUSH ONE (17:50)
[2023-12-25] MEDS: SODIUM CHLORIDE 0.9% 500 ML INFUS.BAG IV ONE (17:50)
[2023-12-25] MEDS ORDERED: LIDOCAINE HCL 2% JELLY 6 ML TP ONE (18:24)
[2023-12-25] MEDS: LIDOCAINE HCL 2% JELLY 6 ML TP ONE (18:30)
[2023-12-25 19:11] LABS: INR 2.09 (0.83-1.09); PROTHROMBIN TIME (PATIENT) 23.1 SEC (9.7-13.0)
[2023-12-25 19:13] LABS: ACTIVATED PTT 47.9 SECONDS (25.2-36.5)
[2023-12-25 19:13] LABS: BASO % 0.4 % (0-2.0); EOS % 0.4 % (0-4.5); HEMATOCRIT 32.4 % (35.4-49); HEMOGLOBIN 10.2 GM/dL (11.7-16.9); LYMPH % 12.9 % (8-40); MCH 25.6 pg (25.7-33.7); MCHC 31.4 g/dl (32.0-35.9); MEAN CELL VOLUME 81.4 fl (80-96); MEAN PLT VOLUME 10.9 fl (7.5-11.1); MONO % 4.6 % (3.8-10.2); NEUT % 81.7 % (42.8-82.8); PLATELET COUNT 73 10^3/uL (134-434); RBC 3.98 M/mm3 (4.00-5.60)
[2023-12-25 19:21] LABS: VENOUS BASE EXCESS -7.7 mmol/L (-2-2); VENOUS PCO2 38.6 mmHg (38-52); VENOUS PH 7.292 (7.310-7.410)
[2023-12-25 19:23] LABS: CHLORIDE 112 mmol/L (98-107); SODIUM 139 mmol/L (136-145)
[2023-12-25 19:26] LABS: ALBUMIN 2.6 g/dl (3.4-5.0); BLOOD UREA NITROGEN 66.2 mg/dL (7-18); CALCIUM 8.9 mg/dL (8.5-10.1); CO2 20 mmol/L (21-32); GLUCOSE,RANDOM 143 mg/dL (74-106)
[2023-12-25 19:29] LABS: CREATININE 3.7 mg/dL (0.55-1.3); SGOT/AST 62 U/L (15-37); SGPT/ALT 29 U/L (13-61)
[2023-12-25 19:31] LABS: BILIRUBIN,TOTAL 1.1 mg/dL (0.2-1)
[2023-12-25 19:32] LABS: ALK PHOS 156 U/L (45-117)
[2023-12-25 19:35] LABS: ANION GAP 7 mmol/L (4-13); POTASSIUM 6.5 mmol/L (3.5-5.1)
[2023-12-25 19:59] LABS: ANISOCYTOSIS 1+; MACROCYTOSIS 0
[2023-12-25 20:29] LABS: POTASSIUM 5.3 mmol/L (3.5-5.1)
[2023-12-25 20:31] LABS: BLOOD UREA NITROGEN 69.8 mg/dL (7-18); CALCIUM 8.5 mg/dL (8.5-10.1)
[2023-12-25 20:35] LABS: CREATININE 3.4 mg/dL (0.55-1.3)
[2023-12-25] MEDS ORDERED: NOREPINEPHRINE BITARTRATE 4 MG/4 ML ML IV ONE (22:28)
[2023-12-25] MEDS: NOREPINEPHRINE BITARTRATE 4,000 MCG in DEXTROSE 5%-WATER - 496 ML IV SCH (22:42)
[2023-12-25 23:07] LABS: N-TERMINAL BNP 13172.9 pg/ml (5-125)
[2023-12-26 03:00] LABS: EPI CELLS 7 /uL (0-25.1); HYALINE CASTS 2 /uL (0-3.1); URINE APPEARANCE CLOUDY; URINE BACTERIA 2 /uL (0-1359); URINE BILIRUBIN 1+ (NEGATIVE); URINE COLOR DK YELLOW; URINE GLUCOSE (UA) NEGATIVE (NEGATIVE); URINE KETONE NEGATIVE (NEGATIVE); URINE LEUK ESTERASE NEGATIVE (NEGATIVE); URINE NITRITE NEGATIVE (NEGATIVE); URINE PROTEIN 1+ (NEGATIVE); URINE RBC 1020 /uL (0-23.9); URINE UROBILINOGEN 0.2 mg/dL (0.2-1.0); URINE WBC 15 /uL (0-25.8)
[2023-12-26] MEDS: SEVELAMER CARBONATE 800 MG TAB (FP) PO SCH (08:56)
[2023-12-26 08:58] LABS: HEMATOCRIT 34.2 % (35.4-49); HEMOGLOBIN 10.7 GM/dL (11.7-16.9); MCH 25.7 pg (25.7-33.7); MCHC 31.3 g/dl (32.0-35.9); MEAN CELL VOLUME 82.1 fl (80-96); MEAN PLT VOLUME 10.4 fl (7.5-11.1); PLATELET COUNT 69 10^3/uL (134-434); RBC 4.17 M/mm3 (4.00-5.60); RDW 20.7 % (11.9-15.9); WHITE BLOOD COUNT 5.6 K/mm3 (4.0-10.0)
[2023-12-26] MEDS: MULTIVITAMINS (DAILY MVI) TABLET (FP) PO SCH (09:00)
[2023-12-26] MEDS: VITAMIN B COMP W-C 1 EA TABLET (NEPHRO-VITE) PO SCH (09:00)
[2023-12-26] MEDS: CLOPIDOGREL BISULFATE 75 MG TABLET (FP) PO SCH (09:00)
[2023-12-26] MEDS: PANTOPRAZOLE SODIUM 40 MG VIAL IVPUSH SCH (09:01)
[2023-12-26] MEDS: HEPARIN NA (PORCINE) 5,000 UNITS/ML 1ML VIAL SQ SCH (09:01)
[2023-12-26] MEDS: ASPIRIN COATED 81 MG TABLET.EC PO SCH (09:01)
[2023-12-26 09:19] LABS: POTASSIUM 5.6 mmol/L (3.5-5.1)
[2023-12-26 09:24] LABS: CALCIUM 9.1 mg/dL (8.5-10.1)
[2023-12-26 09:25] LABS: BLOOD UREA NITROGEN 70.3 mg/dL (7-18); MAGNESIUM 2.6 mg/dL (1.8-2.4)
[2023-12-26 09:28] LABS: CREATININE 3.6 mg/dL (0.55-1.3); PHOSPHOROUS 5.2 mg/dL (2.5-4.9)
[2023-12-26] MEDS: FUROSEMIDE INJECTION 100 MG in SODIUM CHLORIDE 90 ML IVPB SCH ×2 (09:41→20:57)
[2023-12-26] MEDS: PIPERACILLIN/TAZOB 2.25 GM 2.25 GM in DEXTROSE 5%-WATER - 50 ML IVPB SCH (11:05)
[2023-12-26] MEDS: VANCOMYCIN/WATER FOR INJ (PEG) 1,000 MG/200 ML BAG IVPB ONE (11:47)
[2023-12-26] MEDS: MELATONIN 5 MG TABLETS PO SCH (21:01)
[2023-12-26] MEDS: ATORVASTATIN CA 40 MG TABLET (FP) PO SCH (21:01)
[2023-12-27 08:05] LABS: HEMATOCRIT 33.2 % (35.4-49); HEMOGLOBIN 10.6 GM/dL (11.7-16.9); MCH 25.8 pg (25.7-33.7); MCHC 31.9 g/dl (32.0-35.9); MEAN PLT VOLUME 9.2 fl (7.5-11.1); PLATELET COUNT 60 10^3/uL (134-434); RDW 20.5 % (11.9-15.9); WHITE BLOOD COUNT 6.8 K/mm3 (4.0-10.0)
[2023-12-27 08:21] LABS: POTASSIUM 5.3 mmol/L (3.5-5.1)
[2023-12-27 08:29] LABS: CALCIUM 8.6 mg/dL (8.5-10.1)
[2023-12-27 08:30] LABS: BLOOD UREA NITROGEN 72.4 mg/dL (7-18); MAGNESIUM 2.5 mg/dL (1.8-2.4)
[2023-12-27 08:33] LABS: PHOSPHOROUS 4.8 mg/dL (2.5-4.9)
[2023-12-27] MEDS: DEXTROSE 50%-WATER 25 GM/50 ML DISP.SYRIN IVPUSH PRN (18:28)
[2023-12-27 19:11] LABS: HIV INTERPRETATION NEGATIVE (NEGATIVE)
[2023-12-27 21:18] LABS: ALLENS TEST POSITIVE; ARTERIAL BLD GAS O2 SATURATION 98.2 % (95-98); ARTERIAL BLOOD GAS BASE EXCESS -5.4 mmol/L (-2-2); ARTERIAL BLOOD GAS PO2 114.7 mmHg (80-100); ARTERIAL BLOOD GAS pH 7.395 (7.350-7.450)
[2023-12-27] MEDS: DEXMEDETOMIDINE PREMIX 400 MCG/100 ML BAG IVPB SCH (23:00)
[2023-12-28 07:35] LABS: BASO % 0.9 % (0-2.0); HEMOGLOBIN 11.2 GM/dL (11.7-16.9); LYMPH % 21.5 % (8-40); MCH 25.9 pg (25.7-33.7); MCHC 31.9 g/dl (32.0-35.9); MEAN CELL VOLUME 81.2 fl (80-96); MEAN PLT VOLUME 10.3 fl (7.5-11.1); MONO % 8.3 % (3.8-10.2); NEUT % 68.3 % (42.8-82.8); PLATELET COUNT 64 10^3/uL (134-434); RBC 4.31 M/mm3 (4.00-5.60); RDW 20.8 % (11.9-15.9); WHITE BLOOD COUNT 5.2 K/mm3 (4.0-10.0)
[2023-12-28 09:08] LABS: POTASSIUM 4.8 mmol/L (3.5-5.1)
[2023-12-28 09:11] LABS: CALCIUM 8.9 mg/dL (8.5-10.1)
[2023-12-28 09:12] LABS: ALBUMIN 2.6 g/dl (3.4-5.0); BLOOD UREA NITROGEN 74.5 mg/dL (7-18); MAGNESIUM 2.4 mg/dL (1.8-2.4)
[2023-12-28 09:15] LABS: CREATININE 4.1 mg/dL (0.55-1.3); PHOSPHOROUS 4.8 mg/dL (2.5-4.9)
[2023-12-28 09:16] LABS: BILIRUBIN,TOTAL 1.4 mg/dL (0.2-1)
[2023-12-28 11:22] LABS: VENOUS BASE EXCESS -5.3 mmol/L (-2-2); VENOUS PCO2 33.7 mmHg (38-52); VENOUS PH 7.371 (7.310-7.410)
[2023-12-28] MEDS ORDERED: DEXTROSE 50%-WATER 25 GM/50 ML DISP.SYRIN ONE (11:57)
[2023-12-29 07:21] LABS: POTASSIUM 4.4 mmol/L (3.5-5.1)
[2023-12-29 07:23] LABS: BLOOD UREA NITROGEN 75.5 mg/dL (7-18); CALCIUM 8.8 mg/dL (8.5-10.1); HEMATOCRIT 34.4 % (35.4-49); HEMOGLOBIN 10.9 GM/dL (11.7-16.9); MAGNESIUM 2.3 mg/dL (1.8-2.4); MCH 25.8 pg (25.7-33.7); MCHC 31.6 g/dl (32.0-35.9); MEAN CELL VOLUME 81.6 fl (80-96); MEAN PLT VOLUME 10.1 fl (7.5-11.1); PLATELET COUNT 59 10^3/uL (134-434); RBC 4.21 M/mm3 (4.00-5.60); RDW 21.4 % (11.9-15.9); WHITE BLOOD COUNT 6.9 K/mm3 (4.0-10.0)
[2023-12-29 07:26] LABS: PHOSPHOROUS 4.8 mg/dL (2.5-4.9)
[2023-12-29 07:27] LABS: CREATININE 4.2 mg/dL (0.55-1.3)
[2023-12-29 16:08] VITALS: BMI 26.1
[2023-12-29] MEDS: LACTULOSE 20 GM/30 ML UDC (FOR ORAL USE ONLY) PO SCH (21:18)
[2023-12-30 06:37] LABS: POTASSIUM 3.7 mmol/L (3.5-5.1)
[2023-12-30 06:40] LABS: CALCIUM 8.4 mg/dL (8.5-10.1)
[2023-12-30 06:41] LABS: ALBUMIN 2.2 g/dl (3.4-5.0); BLOOD UREA NITROGEN 74.2 mg/dL (7-18); MAGNESIUM 2.2 mg/dL (1.8-2.4)
[2023-12-30 06:46] LABS: TOT PROT 6.6 g/dl (6.4-8.2)
[2023-12-30] MEDS: SEVELAMER CARBONATE 0.8 GM POWDER PACKET PO SCH (08:35)
[2023-12-30 09:00] LABS: PHOSPHOROUS 4.2 mg/dL (2.5-4.9)
[2023-12-30] MEDS: MULTIVIT-MINERALS ORAL LIQUID PO SCH (09:38)
[2023-12-30 16:02] LABS: POTASSIUM 3.6 mmol/L (3.5-5.1)
[2023-12-30 16:04] LABS: BLOOD UREA NITROGEN 69.3 mg/dL (7-18); CALCIUM 8.5 mg/dL (8.5-10.1)
[2023-12-30 16:08] LABS: CREATININE 3.9 mg/dL (0.55-1.3)
[2023-12-30 16:45] LABS: BASO % 0.3 % (0-2.0); EOS % 0.7 % (0-4.5); HEMATOCRIT 31.3 % (35.4-49); HEMOGLOBIN 10.1 GM/dL (11.7-16.9); LYMPH % 11.7 % (8-40); MCH 25.9 pg (25.7-33.7); MCHC 32.1 g/dl (32.0-35.9); MEAN CELL VOLUME 80.5 fl (80-96); MONO % 7.4 % (3.8-10.2); NEUT % 79.9 % (42.8-82.8); PLATELET COUNT 51 10^3/uL (134-434); RBC 3.89 M/mm3 (4.00-5.60); RDW 21.5 % (11.9-15.9)
[2023-12-30 16:49] LABS: MAGNESIUM 2.3 mg/dL (1.8-2.4)
[2023-12-30 16:53] LABS: PHOSPHOROUS 3.8 mg/dL (2.5-4.9)
[2023-12-30 17:36] LABS: ANISOCYTOSIS 2+; MACROCYTOSIS 1+; OVALOCYTE 1+
[2023-12-31 06:35] LABS: HEMATOCRIT 30.9 % (35.4-49); HEMOGLOBIN 9.9 GM/dL (11.7-16.9); MCH 26.1 pg (25.7-33.7); MCHC 32.2 g/dl (32.0-35.9); MEAN CELL VOLUME 80.9 fl (80-96); MEAN PLT VOLUME 8.6 fl (7.5-11.1); PLATELET COUNT 53 10^3/uL (134-434); RBC 3.82 M/mm3 (4.00-5.60); RDW 20.8 % (11.9-15.9)
[2023-12-31 06:55] LABS: POTASSIUM 3.5 mmol/L (3.5-5.1)
[2023-12-31 06:56] LABS: CALCIUM 8.1 mg/dL (8.5-10.1)
[2023-12-31 06:57] LABS: BLOOD UREA NITROGEN 67.6 mg/dL (7-18)
[2023-12-31 07:00] LABS: CREATININE 3.8 mg/dL (0.55-1.3); PHOSPHOROUS 3.8 mg/dL (2.5-4.9)
[2024-01-01 07:46] LABS: POTASSIUM 3.2 mmol/L (3.5-5.1)
[2024-01-01 07:46] LABS: HEMATOCRIT 31.4 % (35.4-49); HEMOGLOBIN 10.1 GM/dL (11.7-16.9); MCH 26.1 pg (25.7-33.7); MCHC 32.3 g/dl (32.0-35.9); MEAN CELL VOLUME 80.8 fl (80-96); MEAN PLT VOLUME 9.3 fl (7.5-11.1); PLATELET COUNT 53 10^3/uL (134-434); RBC 3.88 M/mm3 (4.00-5.60); RDW 21.9 % (11.9-15.9); WHITE BLOOD COUNT 5.5 K/mm3 (4.0-10.0)
[2024-01-01 07:50] LABS: BLOOD UREA NITROGEN 63.6 mg/dL (7-18)
[2024-01-01 07:52] LABS: CALCIUM 8.1 mg/dL (8.5-10.1); MAGNESIUM 1.9 mg/dL (1.8-2.4)
[2024-01-01 07:53] LABS: PHOSPHOROUS 3.6 mg/dL (2.5-4.9)
[2024-01-01 07:54] LABS: CREATININE 3.3 mg/dL (0.55-1.3)
[2024-01-01] MEDS: KCL 10 MEQ IVPB 10 MEQ/100 ML INFUS.BAG IVPB SCH (10:16)
[2024-01-01] MEDS: FUROSEMIDE INJECTION 100 MG in SODIUM CHLORIDE 90 ML IVPB SCH (11:23)
[2024-01-02 07:27] LABS: BASO % 0.3 % (0-2.0); EOS % 0.9 % (0-4.5); HEMATOCRIT 32.7 % (35.4-49); HEMOGLOBIN 10.6 GM/dL (11.7-16.9); LYMPH % 13.4 % (8-40); MCH 26.5 pg (25.7-33.7); MCHC 32.5 g/dl (32.0-35.9); MEAN CELL VOLUME 81.4 fl (80-96); MEAN PLT VOLUME 9.4 fl (7.5-11.1); MONO % 6.5 % (3.8-10.2); NEUT % 78.9 % (42.8-82.8); PLATELET COUNT 60 10^3/uL (134-434); RBC 4.02 M/mm3 (4.00-5.60); RDW 20.9 % (11.9-15.9); WHITE BLOOD COUNT 5.2 K/mm3 (4.0-10.0)
[2024-01-02 07:45] LABS: POTASSIUM 3.1 mmol/L (3.5-5.1)
[2024-01-02 07:57] LABS: ALBUMIN 2.3 g/dl (3.4-5.0); CALCIUM 8.4 mg/dL (8.5-10.1)
[2024-01-02 07:59] LABS: BLOOD UREA NITROGEN 62.6 mg/dL (7-18)
[2024-01-02 08:03] LABS: CREATININE 3.2 mg/dL (0.55-1.3); PHOSPHOROUS 3.3 mg/dL (2.5-4.9); TOT PROT 7.1 g/dl (6.4-8.2)
[2024-01-02 08:05] LABS: BILIRUBIN,TOTAL 1.7 mg/dL (0.2-1)
[2024-01-02] MEDS: METOLAZONE 2.5 MG TABLET (FP) PO ONE (09:02)
[2024-01-02] MEDS: KCL 20 MEQ PREMIX BAG 20 MEQ/100 ML INFUS.BAG IVPB SCH (09:14)
[2024-01-02] MEDS: FUROSEMIDE 40 MG/4 ML INJECTABLE VIAL IVPUSH SCH (13:03)
[2024-01-02] MEDS: FUROSEMIDE 40 MG/4 ML INJECTABLE VIAL IVPUSH ONE (21:51)
[2024-01-03 07:28] LABS: BASO % 0.7 % (0-2.0); EOS % 1.7 % (0-4.5); HEMATOCRIT 33.7 % (35.4-49); HEMOGLOBIN 10.9 GM/dL (11.7-16.9); LYMPH % 16.5 % (8-40); MCH 26.4 pg (25.7-33.7); MCHC 32.2 g/dl (32.0-35.9); MEAN CELL VOLUME 81.7 fl (80-96); MEAN PLT VOLUME 9.5 fl (7.5-11.1); MONO % 7.7 % (3.8-10.2); NEUT % 73.4 % (42.8-82.8); PLATELET COUNT 72 10^3/uL (134-434); RBC 4.12 M/mm3 (4.00-5.60); RDW 22.1 % (11.9-15.9); WHITE BLOOD COUNT 4.2 K/mm3 (4.0-10.0)
[2024-01-03] MEDS ORDERED: DEXMEDETOMIDINE PREMIX 400 MCG/100 ML BAG IVPB SCH (07:30)
[2024-01-03 08:06] LABS: CALCIUM 8.4 mg/dL (8.5-10.1)
[2024-01-03 08:07] LABS: ALBUMIN 2.1 g/dl (3.4-5.0); BLOOD UREA NITROGEN 62.1 mg/dL (7-18)
[2024-01-03 08:10] LABS: CREATININE 3.1 mg/dL (0.55-1.3); PHOSPHOROUS 3.5 mg/dL (2.5-4.9)
[2024-01-03 08:12] LABS: BILIRUBIN,TOTAL 1.5 mg/dL (0.2-1); TOT PROT 6.8 g/dl (6.4-8.2)
[2024-01-03 10:09] LABS: ANISOCYTOSIS 0; MACROCYTOSIS 0
[2024-01-03] MEDS: PIPERACILLIN/TAZOB 2.25 GM 2.25 GM in DEXTROSE 5%-WATER - 50 ML IVPB SCH ×2 (10:23→21:27)
[2024-01-03] MEDS: POTASSIUM CHLORIDE ORAL LIQUID 20 MEQ/15 ML PO ONE (10:23)
[2024-01-03] MEDS: FUROSEMIDE 40 MG/4 ML INJECTABLE VIAL IVPUSH SCH (13:24)
[2024-01-03] MEDS: MELATONIN 5 MG TABLETS PO SCH (21:27)
[2024-01-03] MEDS: ATORVASTATIN CA 40 MG TABLET (FP) PO SCH (21:27)
[2024-01-04] MEDS: FUROSEMIDE 40 MG/4 ML INJECTABLE VIAL IVPUSH SCH (05:11)
[2024-01-04] MEDS: SEVELAMER CARBONATE 0.8 GM POWDER PACKET PO SCH (11:02)
[2024-01-04] MEDS: VITAMIN B COMP W-C 1 EA TABLET (NEPHRO-VITE) PO SCH (11:02)
[2024-01-04] MEDS: ASPIRIN COATED 81 MG TABLET.EC PO SCH (11:03)
[2024-01-04] MEDS: CLOPIDOGREL BISULFATE 75 MG TABLET (FP) PO SCH (11:03)
[2024-01-04 20:29] LABS: BASO % 1.1 % (0-2.0); EOS % 0.4 % (0-4.5); HEMATOCRIT 35.9 % (35.4-49); HEMOGLOBIN 11.7 GM/dL (11.7-16.9); LYMPH % 16.7 % (8-40); MCH 26.3 pg (25.7-33.7); MCHC 32.5 g/dl (32.0-35.9); MEAN PLT VOLUME 8.9 fl (7.5-11.1); MONO % 10.2 % (3.8-10.2); NEUT % 71.6 % (42.8-82.8); PLATELET COUNT 119 10^3/uL (134-434); RBC 4.43 M/mm3 (4.00-5.60); RDW 22.2 % (11.9-15.9); WHITE BLOOD COUNT 6.6 K/mm3 (4.0-10.0)
[2024-01-04 20:46] LABS: POTASSIUM 3.7 mmol/L (3.5-5.1)
[2024-01-04 20:48] LABS: CALCIUM 8.7 mg/dL (8.5-10.1)
[2024-01-04 20:49] LABS: ALBUMIN 2.3 g/dl (3.4-5.0)
[2024-01-04 20:52] LABS: CREATININE 3.8 mg/dL (0.55-1.3)
[2024-01-04 20:53] LABS: BILIRUBIN,TOTAL 1.3 mg/dL (0.2-1); TOT PROT 7.1 g/dl (6.4-8.2)
[2024-01-04 20:54] LABS: BLOOD UREA NITROGEN 67.8 mg/dL (7-18)
[2024-01-05] MEDS: DEXTROSE 50%-WATER - 25 GM/50 ML VIAL IVPUSH ONE (06:53)
[2024-01-05 07:51] LABS: CHLORIDE 109 mmol/L (98-107); POTASSIUM 3.6 mmol/L (3.5-5.1); SODIUM 144 mmol/L (136-145)
[2024-01-05 07:54] LABS: ALBUMIN 2.2 g/dl (3.4-5.0); ANION GAP 9 mmol/L (4-13); BLOOD UREA NITROGEN 70.8 mg/dL (7-18); CALCIUM 8.8 mg/dL (8.5-10.1); CO2 26 mmol/L (21-32); MAGNESIUM 2.2 mg/dL (1.8-2.4)
[2024-01-05 07:56] LABS: GLUCOSE,RANDOM 48 mg/dL (74-106)
[2024-01-05 07:57] LABS: SGOT/AST 21 U/L (15-37); SGPT/ALT 19 U/L (13-61)
[2024-01-05 07:59] LABS: BILIRUBIN,TOTAL 1.4 mg/dL (0.2-1); TOT PROT 6.9 g/dl (6.4-8.2)
[2024-01-05 08:00] LABS: ALK PHOS 97 U/L (45-117)
[2024-01-05] MEDS: D5-1/2NS+10 MEQ KCL - 10 MEQ/1,000 ML INFUS.BAG IV SCH (15:12)
[2024-01-05] MEDS: DEXTROSE 5%-WATER - 1,000 ML with POTASSIUM CHLORIDE 20 MEQ IV SCH (15:13)
[2024-01-05] MEDS: POTASSIUM CHLORIDE 20 MEQ in DEXTROSE 5%-WATER - 1,000 ML IV SCH (18:12)
[2024-01-06 06:33] LABS: BASO % 1.4 % (0-2.0); EOS % 1.4 % (0-4.5); HEMATOCRIT 35.5 % (35.4-49); HEMOGLOBIN 11.3 GM/dL (11.7-16.9); MCH 26.2 pg (25.7-33.7); MCHC 31.8 g/dl (32.0-35.9); MEAN CELL VOLUME 82.6 fl (80-96); MEAN PLT VOLUME 8.3 fl (7.5-11.1); MONO % 6.8 % (3.8-10.2); NEUT % 71.4 % (42.8-82.8); PLATELET COUNT 112 10^3/uL (134-434); RBC 4.29 M/mm3 (4.00-5.60); RDW 22.9 % (11.9-15.9)
[2024-01-06 06:55] LABS: POTASSIUM 3.5 mmol/L (3.5-5.1)
[2024-01-06 06:57] LABS: CALCIUM 8.8 mg/dL (8.5-10.1)
[2024-01-06 06:58] LABS: BLOOD UREA NITROGEN 70.4 mg/dL (7-18)
[2024-01-06 07:01] LABS: CREATININE 3.9 mg/dL (0.55-1.3)
[2024-01-06 07:02] LABS: BILIRUBIN,TOTAL 1.2 mg/dL (0.2-1); TOT PROT 6.6 g/dl (6.4-8.2)
[2024-01-06] MEDS: POTASSIUM CHLORIDE 20 MEQ in DEXTROSE 5%-WATER - 1,000 ML IV SCH (17:31)
[2024-01-07 09:53] VITALS: RESP 17
[2024-01-07] MEDS ORDERED: TORSEMIDE 20 MG TABLET (FP) PO SCH (10:00)
[2024-01-07] MEDS: TORSEMIDE 20 MG TABLET (FP) PO SCH (14:32)
[2024-01-07 15:07] VITALS: BP 130/101; PULSE 64; TEMP 96.3
== END 2024-01-07 16:33 | DRG 871 ==
LOC: JER 17:27 → JERBED 20:40 → JICU 12-26 00:10 → J4S 01-03 16:49
PROVIDERS: ADMIT Family Medicine; ATTEND Family Medicine
DX: A41.89 Other specified sepsis (principal); I50.21 Acute systolic (congestive) heart failure; R57.0 Cardiogenic shock; R65.21 Severe sepsis with septic shock; I13.0 Hypertensive heart and chronic kidney disease with heart failure and stage 1 through stage 4 chronic kidney disease, or unspecified chronic kidney disease; I48.20 Chronic atrial fibrillation, unspecified; M86.9 Osteomyelitis, unspecified; N17.9 Acute kidney failure, unspecified; E46 Unspecified protein-calorie malnutrition; R64 Cachexia; E78.5 Hyperlipidemia, unspecified; I25.10 Atherosclerotic heart disease of native coronary artery without angina pectoris; E11.69 Type 2 diabetes mellitus with other specified complication; L89.150 Pressure ulcer of sacral region, unstageable; E11.42 Type 2 diabetes mellitus with diabetic polyneuropathy; E11.621 Type 2 diabetes mellitus with foot ulcer; L97.519 Non-pressure chronic ulcer of other part of right foot with unspecified severity; L97.529 Non-pressure chronic ulcer of other part of left foot with unspecified severity; R60.1 Generalized edema; E87.70 Fluid overload, unspecified; E87.5 Hyperkalemia; N18.31 Chronic kidney disease, stage 3a; Z68.23 Body mass index [BMI] 23.0-23.9, adult; K21.9 Gastro-esophageal reflux disease without esophagitis
CPT/HCPCS: 0241U-QW; 36415; 36600; 70450-TC; 71045-TC-FY; 71250-TC; 73630-TC-LT; 73630-TC-RT-FY; 76775-TC; 80048; 80053; 80076; 81003; 82140; 82533; 82803; 82962; 83605; 83735; 83880; 84100; 84439; 84443; 84484; 85025; 85027; 85610; 85730; 86704; 86803; 87040; 87086; 87324; 87340; 87389; 87449; 87493; 87517; 93005; 93010; 93306-TC; 93971; 94010; 99285-25; G0480; J1250; J1644

== ENCOUNTER 2024-01-10 00:22 | Inpatient (IN) | payer OTHER ==
[2024-01-10] MEDS ORDERED: NOREPINEPHRINE BITARTRATE 4 MG/4 ML ML IV ONE (01:08)
[2024-01-10 01:10] LABS: BASO % 1.1 % (0-2.0); EOS % 0.3 % (0-4.5); HEMATOCRIT 40.6 % (35.4-49); HEMOGLOBIN 13.2 GM/dL (11.7-16.9); LYMPH % 13.8 % (8-40); MCH 26.6 pg (25.7-33.7); MCHC 32.5 g/dl (32.0-35.9); MEAN PLT VOLUME 8.5 fl (7.5-11.1); MONO % 7.4 % (3.8-10.2); NEUT % 77.4 % (42.8-82.8); PLATELET COUNT 154 10^3/uL (134-434); RBC 4.95 M/mm3 (4.00-5.60); RDW 23.9 % (11.9-15.9); WHITE BLOOD COUNT 6.8 K/mm3 (4.0-10.0)
[2024-01-10 01:13] LABS: VENOUS BASE EXCESS -2.3 mmol/L (-2-2); VENOUS O2 SATURATION 47.6 % (70-80); VENOUS PCO2 48.8 mmHg (38-52); VENOUS PH 7.314 (7.310-7.410)
[2024-01-10] MEDS ORDERED: MIDAZOLAM IN 0.9 % SOD.CHLORID 100 MG/100 ML PLAST..BAG IVPB SCH (01:15)
[2024-01-10 01:25] LABS: INR 1.57 (0.83-1.09); PROTHROMBIN TIME (PATIENT) 17.5 SEC (9.7-13.0)
[2024-01-10 01:27] LABS: ACTIVATED PTT 41.6 SECONDS (25.2-36.5)
[2024-01-10] MEDS ORDERED: MIDAZOLAM HCL 2 MG/2 ML SINGLE DOSE VIAL ONE ×2 (01:27→03:57)
[2024-01-10 01:30] LABS: POTASSIUM 3.5 mmol/L (3.5-5.1)
[2024-01-10 01:32] LABS: CALCIUM 9.1 mg/dL (8.5-10.1)
[2024-01-10] MEDS: ROCURONIUM BROMIDE 50 MG/5 ML VIAL IV ONE (01:32)
[2024-01-10] MEDS ORDERED: ROCURONIUM BROMIDE 50 MG/5 ML VIAL ONE (01:32)
[2024-01-10] MEDS: MIDAZOLAM HCL 2 MG/2 ML SINGLE DOSE VIAL IVPUSH ONE ×3 (01:32→11:23)
[2024-01-10 01:33] LABS: ALBUMIN 2.3 g/dl (3.4-5.0); BLOOD UREA NITROGEN 78.9 mg/dL (7-18)
[2024-01-10 01:36] LABS: CREATININE 3.5 mg/dL (0.55-1.3)
[2024-01-10 01:37] LABS: BILIRUBIN,TOTAL 1.6 mg/dL (0.2-1); TOT PROT 7.6 g/dl (6.4-8.2)
[2024-01-10] MEDS: SODIUM CHLORIDE 500 ML IV STA (01:44)
[2024-01-10] MEDS: KETAMINE HCL 1,000 MG in SODIUM CHLORIDE 480 ML IV SCH (02:21)
[2024-01-10 02:37] LABS: EPI CELLS >36 /uL (0-25.1); HYALINE CASTS 1 /uL (0-3.1); PH,URINE 5.5 (5.0-8.0); URINE APPEARANCE CLOUDY; URINE BACTERIA 43 /uL (0-1359); URINE BILIRUBIN NEGATIVE (NEGATIVE); URINE COLOR YELLOW; URINE GLUCOSE (UA) NEGATIVE (NEGATIVE); URINE KETONE NEGATIVE (NEGATIVE); URINE LEUK ESTERASE 3+ (NEGATIVE); URINE NITRITE NEGATIVE (NEGATIVE); URINE PROTEIN NEGATIVE (NEGATIVE); URINE RBC 20 /uL (0-23.9); URINE UROBILINOGEN 0.2 mg/dL (0.2-1.0); URINE WBC 203 /uL (0-25.8)
[2024-01-10 03:23] LABS: ANISOCYTOSIS 0; MACROCYTOSIS 0; ROULEAU 1+
[2024-01-10 03:47] LABS: LACTIC ACID 2.5 mmol/L (0.4-2.0)
[2024-01-10] MEDS ORDERED: DEXMEDETOMIDINE PREMIX 400 MCG/100 ML BAG IVPB ONE (04:20)
[2024-01-10] MEDS ORDERED: fentaNYL CITRATE 250 MCG/5 ML VIAL ONE ×2 (04:42→05:57)
[2024-01-10] MEDS: DEXMEDETOMIDINE PREMIX 400 MCG/100 ML BAG IVPB SCH ×2 (04:52→11:30)
[2024-01-10] MEDS: DEXTROSE 5%-0.45% SALINE 1,000 ML IV SCH (04:54)
[2024-01-10] MEDS: DEXTROSE 50%-WATER 25 GM/50 ML DISP.SYRIN IVPUSH ONE (05:30)
[2024-01-10] MEDS: NOREPINEPHRINE BITARTRATE 4,000 MCG in DEXTROSE 5%-WATER - 496 ML IV SCH (05:31)
[2024-01-10 06:23] LABS: ARTERIAL BLD GAS O2 SATURATION 97.7 % (95-98); ARTERIAL BLOOD GAS BASE EXCESS -1.7 mmol/L (-2-2); ARTERIAL BLOOD GAS PO2 102.7 mmHg (80-100); ARTERIAL BLOOD GAS pH 7.395 (7.350-7.450)
[2024-01-10 06:24] LABS: ALLENS TEST POSITIVE
[2024-01-10 06:25] LABS: VENT MODE A/C; VENT RATE 14
[2024-01-10] MEDS: VANCOMYCIN/WATER FOR INJ (PEG) 1,000 MG/200 ML BAG IVPB ONE (07:05)
[2024-01-10 07:53] LABS: HEMATOCRIT 35.7 % (35.4-49); HEMOGLOBIN 11.3 GM/dL (11.7-16.9); MCH 26.5 pg (25.7-33.7); MCHC 31.7 g/dl (32.0-35.9); MEAN CELL VOLUME 83.4 fl (80-96); MEAN PLT VOLUME 8.8 fl (7.5-11.1); PLATELET COUNT 144 10^3/uL (134-434); RBC 4.28 M/mm3 (4.00-5.60); RDW 23.1 % (11.9-15.9); WHITE BLOOD COUNT 8.4 K/mm3 (4.0-10.0)
[2024-01-10] MEDS: KCL 20 MEQ PREMIX BAG 20 MEQ/100 ML INFUS.BAG IVPB ONE (07:53)
[2024-01-10] MEDS: D5-1/2NS+10 MEQ KCL - 10 MEQ/1,000 ML INFUS.BAG IV SCH (07:53)
[2024-01-10 08:05] LABS: POTASSIUM 3.5 mmol/L (3.5-5.1)
[2024-01-10 08:07] LABS: BLOOD UREA NITROGEN 77.4 mg/dL (7-18); CALCIUM 8.6 mg/dL (8.5-10.1); MAGNESIUM 2.3 mg/dL (1.8-2.4)
[2024-01-10 08:11] LABS: CREATININE 3.5 mg/dL (0.55-1.3); PHOSPHOROUS 4.5 mg/dL (2.5-4.9)
[2024-01-10 08:12] LABS: BILIRUBIN,TOTAL 1.8 mg/dL (0.2-1); TOT PROT 6.9 g/dl (6.4-8.2)
[2024-01-10 08:33] LABS: LACTIC ACID 2.7 mmol/L (0.4-2.0)
[2024-01-10] MEDS: PIPERACILLIN/TAZOB 3.375 GM 3.375 GM in DEXTROSE 5%-WATER - 50 ML IVPB ONE (09:15)
[2024-01-10] MEDS: PANTOPRAZOLE SODIUM 40 MG VIAL IVPUSH SCH (09:15)
[2024-01-10] MEDS: HEPARIN NA (PORCINE) 5,000 UNITS/ML 1ML VIAL SQ SCH (13:05)
[2024-01-10] MEDS: NOREPINEPHRINE 0.9 % NACL 8 MG/250 ML BAG IVPB SCH (14:40)
[2024-01-10] MEDS: PIPERACILLIN/TAZOB 2.25 GM 2.25 GM in DEXTROSE 5%-WATER - 50 ML IVPB SCH (17:19)
[2024-01-11 07:45] LABS: HEMATOCRIT 35.5 % (35.4-49); HEMOGLOBIN 11.2 GM/dL (11.7-16.9); MCH 26.4 pg (25.7-33.7); MCHC 31.7 g/dl (32.0-35.9); MEAN CELL VOLUME 83.3 fl (80-96); MEAN PLT VOLUME 8.6 fl (7.5-11.1); PLATELET COUNT 133 10^3/uL (134-434); RBC 4.26 M/mm3 (4.00-5.60); RDW 23.2 % (11.9-15.9); WHITE BLOOD COUNT 11.3 K/mm3 (4.0-10.0)
[2024-01-11 08:21] LABS: POTASSIUM 3.2 mmol/L (3.5-5.1)
[2024-01-11 08:23] LABS: CALCIUM 8.2 mg/dL (8.5-10.1)
[2024-01-11 08:24] LABS: ALBUMIN 1.8 g/dl (3.4-5.0); BLOOD UREA NITROGEN 73.9 mg/dL (7-18); MAGNESIUM 2.1 mg/dL (1.8-2.4)
[2024-01-11 08:27] LABS: CREATININE 3.2 mg/dL (0.55-1.3)
[2024-01-11 08:28] LABS: BILIRUBIN,TOTAL 2.2 mg/dL (0.2-1)
[2024-01-11 08:29] LABS: TOT PROT 6.5 g/dl (6.4-8.2)
[2024-01-11] MEDS: KCL 10 MEQ IVPB 10 MEQ/100 ML INFUS.BAG IVPB SCH (09:47)
[2024-01-11] MEDS: DEXTROSE 50%-WATER 25 GM/50 ML DISP.SYRIN IVPUSH ONE ×2 (12:40→21:56)
[2024-01-11] MEDS ORDERED: DEXTROSE 50%-WATER 25 GM/50 ML DISP.SYRIN ONE (21:27)
[2024-01-12 07:41] LABS: HEMATOCRIT 31.8 % (35.4-49); HEMOGLOBIN 10.3 GM/dL (11.7-16.9); MCH 26.6 pg (25.7-33.7); MCHC 32.5 g/dl (32.0-35.9); MEAN CELL VOLUME 81.9 fl (80-96); MEAN PLT VOLUME 8.9 fl (7.5-11.1); PLATELET COUNT 107 10^3/uL (134-434); RBC 3.88 M/mm3 (4.00-5.60); RDW 22.9 % (11.9-15.9); WHITE BLOOD COUNT 6.8 K/mm3 (4.0-10.0)
[2024-01-12 07:46] LABS: POTASSIUM 3.4 mmol/L (3.5-5.1)
[2024-01-12 07:49] LABS: CALCIUM 8.1 mg/dL (8.5-10.1)
[2024-01-12 07:50] LABS: ALBUMIN 1.8 g/dl (3.4-5.0); BLOOD UREA NITROGEN 70.2 mg/dL (7-18)
[2024-01-12 07:53] LABS: CREATININE 2.9 mg/dL (0.55-1.3)
[2024-01-12 07:55] LABS: BILIRUBIN,TOTAL 2.7 mg/dL (0.2-1); TOT PROT 6.4 g/dl (6.4-8.2)
[2024-01-13] MEDS ORDERED: DOPAMINE 400 MG/D5W - 400,000 MCG/250 ML INFUS.BAG IVPB ONE (06:52)
[2024-01-13 08:02] LABS: POTASSIUM 3.2 mmol/L (3.5-5.1)
[2024-01-13 08:04] LABS: HEMATOCRIT 29.4 % (35.4-49); HEMOGLOBIN 9.5 GM/dL (11.7-16.9); MCH 26.7 pg (25.7-33.7); MCHC 32.2 g/dl (32.0-35.9); MEAN PLT VOLUME 8.9 fl (7.5-11.1); PLATELET COUNT 78 10^3/uL (134-434); RBC 3.54 M/mm3 (4.00-5.60); RDW 23.4 % (11.9-15.9); WHITE BLOOD COUNT 5.8 K/mm3 (4.0-10.0)
[2024-01-13 08:08] LABS: ALBUMIN 1.7 g/dl (3.4-5.0); CALCIUM 7.9 mg/dL (8.5-10.1)
[2024-01-13 08:09] LABS: BLOOD UREA NITROGEN 72.8 mg/dL (7-18)
[2024-01-13 08:11] LABS: CREATININE 2.7 mg/dL (0.55-1.3)
[2024-01-13 08:13] LABS: BILIRUBIN,TOTAL 2.7 mg/dL (0.2-1); TOT PROT 6.1 g/dl (6.4-8.2)
[2024-01-13] MEDS: KCL 10 MEQ IVPB 10 MEQ/100 ML INFUS.BAG IVPB SCH (09:45)
[2024-01-13] MEDS: MIDODRINE HCL 5 MG TABLET PO SCH (15:14)
[2024-01-13] MEDS: DEXTROSE 50%-WATER 25 GM/50 ML DISP.SYRIN IVPUSH ONE (17:36)
[2024-01-13] MEDS ORDERED: DEXTROSE 50%-WATER 25 GM/50 ML DISP.SYRIN ONE (23:54)
[2024-01-14 06:53] LABS: HEMATOCRIT 26.7 % (35.4-49); HEMOGLOBIN 8.6 GM/dL (11.7-16.9); MCH 26.7 pg (25.7-33.7); MCHC 32.2 g/dl (32.0-35.9); MEAN PLT VOLUME 8.8 fl (7.5-11.1); PLATELET COUNT 71 10^3/uL (134-434); RBC 3.22 M/mm3 (4.00-5.60); RDW 23.6 % (11.9-15.9); WHITE BLOOD COUNT 4.7 K/mm3 (4.0-10.0)
[2024-01-14 07:20] LABS: POTASSIUM 3.3 mmol/L (3.5-5.1)
[2024-01-14 07:23] LABS: ALBUMIN 1.7 g/dl (3.4-5.0)
[2024-01-14 07:24] LABS: BLOOD UREA NITROGEN 77.1 mg/dL (7-18); MAGNESIUM 2.2 mg/dL (1.8-2.4)
[2024-01-14 07:26] LABS: CREATININE 2.9 mg/dL (0.55-1.3); PHOSPHOROUS 3.9 mg/dL (2.5-4.9)
[2024-01-14 07:27] LABS: BILIRUBIN,TOTAL 2.4 mg/dL (0.2-1); TOT PROT 6.3 g/dl (6.4-8.2)
[2024-01-14] MEDS: COLLAGENASE CLOSTRIDIUM HIST. 30 GRAMS TUBE TP SCH (11:41)
[2024-01-14] MEDS ORDERED: DEXTROSE 50%-WATER 25 GM/50 ML DISP.SYRIN ONE ×2 (14:00→21:52)
[2024-01-14] MEDS: DEXTROSE 50%-WATER 25 GM/50 ML DISP.SYRIN IVPUSH ONE (14:28)
[2024-01-14] MEDS: KCL 10 MEQ IVPB 10 MEQ/100 ML INFUS.BAG IVPB SCH (15:14)
[2024-01-15] MEDS ORDERED: DEXTROSE 50%-WATER 25 GM/50 ML DISP.SYRIN ONE (11:56)
[2024-01-15] MEDS: DEXTROSE 50%-WATER 25 GM/50 ML DISP.SYRIN IVPUSH ONE (12:11)
[2024-01-15 13:54] LABS: BASO % 1.1 % (0-2.0); EOS % 0.9 % (0-4.5); HEMATOCRIT 31.2 % (35.4-49); LYMPH % 27.4 % (8-40); MCH 26.7 pg (25.7-33.7); MCHC 32.2 g/dl (32.0-35.9); MEAN CELL VOLUME 82.7 fl (80-96); MEAN PLT VOLUME 9.5 fl (7.5-11.1); MONO % 7.3 % (3.8-10.2); NEUT % 63.3 % (42.8-82.8); PLATELET COUNT 91 10^3/uL (134-434); RBC 3.77 M/mm3 (4.00-5.60); RDW 23.5 % (11.9-15.9); WHITE BLOOD COUNT 4.5 K/mm3 (4.0-10.0)
[2024-01-15 14:24] LABS: POTASSIUM 3.6 mmol/L (3.5-5.1)
[2024-01-15 14:25] LABS: CALCIUM 8.1 mg/dL (8.5-10.1)
[2024-01-15 14:26] LABS: BLOOD UREA NITROGEN 74.4 mg/dL (7-18)
[2024-01-15 14:29] LABS: CREATININE 3.2 mg/dL (0.55-1.3)
[2024-01-15 15:03] LABS: ANISOCYTOSIS 2+; MACROCYTOSIS 1+; PLATELET ESTIMATE DECREASED
[2024-01-15] MEDS: LACTATED RINGERS SOLUTION 1000 ML INFUS.BAG IV ONE (15:20)
[2024-01-15] MEDS: DEXTROSE 5%-0.45% SALINE 1,000 ML IV SCH (19:00)
[2024-01-15] MEDS: HEPARIN NA (PORCINE) 5,000 UNITS/ML 1ML VIAL SQ SCH (21:09)
[2024-01-16] MEDS: PIPERACILLIN/TAZOB 2.25 GM 2.25 GM in DEXTROSE 5%-WATER - 50 ML IVPB SCH (01:36)
[2024-01-16] MEDS: DEXTROSE 50%-WATER 25 GM/50 ML DISP.SYRIN IVPUSH PRN (06:05)
[2024-01-16] MEDS ORDERED: DEXTROSE 50%-WATER 25 GM/50 ML DISP.SYRIN ONE (06:07)
[2024-01-16 08:09] LABS: POTASSIUM 3.7 mmol/L (3.5-5.1)
[2024-01-16 08:35] LABS: ALBUMIN 1.8 g/dl (3.4-5.0); BLOOD UREA NITROGEN 75.2 mg/dL (7-18); CALCIUM 8.1 mg/dL (8.5-10.1)
[2024-01-16 08:39] LABS: CREATININE 3.3 mg/dL (0.55-1.3)
[2024-01-16 08:40] LABS: BILIRUBIN,TOTAL 2.5 mg/dL (0.2-1); TOT PROT 6.8 g/dl (6.4-8.2)
[2024-01-16] MEDS: DEXTROSE 5%-0.45% SALINE 1,000 ML IV SCH (09:39)
[2024-01-16] MEDS: PANTOPRAZOLE SODIUM 40 MG VIAL IVPUSH SCH (09:52)
[2024-01-16] MEDS: COLLAGENASE CLOSTRIDIUM HIST. 30 GRAMS TUBE TP SCH (09:52)
[2024-01-16] MEDS: MIDODRINE HCL 5 MG TABLET PO SCH (09:52)
[2024-01-16 14:47] VITALS: BMI 23.5
[2024-01-17 07:16] LABS: BASO % 0.9 % (0-2.0); HEMATOCRIT 30.5 % (35.4-49); LYMPH % 27.6 % (8-40); MCH 26.9 pg (25.7-33.7); MCHC 32.7 g/dl (32.0-35.9); MEAN CELL VOLUME 82.3 fl (80-96); MEAN PLT VOLUME 9.8 fl (7.5-11.1); MONO % 6.7 % (3.8-10.2); NEUT % 63.8 % (42.8-82.8); PLATELET COUNT 97 10^3/uL (134-434); RDW 23.4 % (11.9-15.9); WHITE BLOOD COUNT 4.6 K/mm3 (4.0-10.0)
[2024-01-17 07:42] LABS: POTASSIUM 3.5 mmol/L (3.5-5.1)
[2024-01-17 07:50] LABS: CREATININE 3.3 mg/dL (0.55-1.3)
[2024-01-17] MEDS ORDERED: DEXTROSE 50%-WATER 25 GM/50 ML DISP.SYRIN ONE (17:02)
[2024-01-17] MEDS: DEXTROSE 50%-WATER 25 GM/50 ML DISP.SYRIN IVPUSH ONE (17:24)
[2024-01-17] MEDS: AMINO ACIDS 4.25%/D5W 1,000 ML IV SCH (17:24)
[2024-01-17] MEDS: VANCOMYCIN ORAL SOLUTION 125 MG/2.5 ML PO SCH (17:25)
[2024-01-19 07:29] LABS: HEMATOCRIT 33.3 % (35.4-49); HEMOGLOBIN 10.6 GM/dL (11.7-16.9); MCH 26.6 pg (25.7-33.7); MCHC 31.7 g/dl (32.0-35.9); MEAN CELL VOLUME 84.1 fl (80-96); MEAN PLT VOLUME 9.9 fl (7.5-11.1); PLATELET COUNT 107 10^3/uL (134-434); RBC 3.97 M/mm3 (4.00-5.60); RDW 23.1 % (11.9-15.9); WHITE BLOOD COUNT 5.9 K/mm3 (4.0-10.0)
[2024-01-19 07:50] LABS: POTASSIUM 3.6 mmol/L (3.5-5.1)
[2024-01-19 07:56] LABS: CALCIUM 8.2 mg/dL (8.5-10.1)
[2024-01-19 07:57] LABS: ALBUMIN 1.8 g/dl (3.4-5.0); BLOOD UREA NITROGEN 91.6 mg/dL (7-18); MAGNESIUM 2.1 mg/dL (1.8-2.4)
[2024-01-19 08:00] LABS: CREATININE 3.9 mg/dL (0.55-1.3)
[2024-01-19 08:01] LABS: BILIRUBIN,TOTAL 2.7 mg/dL (0.2-1); TOT PROT 7.2 g/dl (6.4-8.2)
[2024-01-20 07:26] LABS: POTASSIUM 3.4 mmol/L (3.5-5.1)
[2024-01-20 07:29] LABS: BLOOD UREA NITROGEN 102.1 mg/dL (7-18); CALCIUM 8.6 mg/dL (8.5-10.1)
[2024-01-20 07:33] LABS: CREATININE 4.2 mg/dL (0.55-1.3)
[2024-01-20] MEDS: KCL 10 MEQ IVPB 10 MEQ/100 ML INFUS.BAG IVPB SCH (12:09)
[2024-01-22 08:04] LABS: CHLORIDE 100 mmol/L (98-107); POTASSIUM 3.8 mmol/L (3.5-5.1); SODIUM 132 mmol/L (136-145)
[2024-01-22 08:06] LABS: ALBUMIN 1.8 g/dl (3.4-5.0); ANION GAP 16 mmol/L (4-13); CALCIUM 8.6 mg/dL (8.5-10.1); CO2 16 mmol/L (21-32); GLUCOSE,RANDOM 116 mg/dL (74-106)
[2024-01-22 08:09] LABS: SGOT/AST 31 U/L (15-37); SGPT/ALT 18 U/L (13-61)
[2024-01-22 08:10] LABS: BLOOD UREA NITROGEN 122.3 mg/dL (7-18); CREATININE 4.9 mg/dL (0.55-1.3)
[2024-01-22 08:11] LABS: BILIRUBIN,TOTAL 2.8 mg/dL (0.2-1); TOT PROT 7.4 g/dl (6.4-8.2)
[2024-01-22 08:12] LABS: ALK PHOS 72 U/L (45-117)
[2024-01-22] MEDS: ACETAMINOPHEN 1000 MG/100 ML BAG IVPB PRN (12:30)
[2024-01-23] MEDS ORDERED: LACTATED RINGERS SOLUTION 1,000 ML/1,000 ML INFUS.BAG IV SCH (22:45)
[2024-01-23] MEDS: MIDODRINE HCL 5 MG TABLET PO ONE (23:48)
[2024-01-24] MEDS: ACETAMINOPHEN 1000 MG/100 ML BAG IVPB PRN (04:54)
[2024-01-24] MEDS: MIDODRINE HCL 5 MG TABLET PO SCH (08:00)
[2024-01-24 11:39] LABS: BASO % 0.3 % (0-2.0); EOS % 0.1 % (0-4.5); HEMATOCRIT 31.1 % (35.4-49); LYMPH % 6.6 % (8-40); MCH 26.7 pg (25.7-33.7); MCHC 32.1 g/dl (32.0-35.9); MONO % 4.5 % (3.8-10.2); NEUT % 88.5 % (42.8-82.8); PLATELET COUNT 105 10^3/uL (134-434); RBC 3.75 M/mm3 (4.00-5.60); RDW 22.9 % (11.9-15.9)
[2024-01-24 11:57] LABS: CHLORIDE 98 mmol/L (98-107); POTASSIUM 3.6 mmol/L (3.5-5.1); SODIUM 127 mmol/L (136-145)
[2024-01-24 11:59] LABS: ALBUMIN 1.7 g/dl (3.4-5.0); ANION GAP 18 mmol/L (4-13); CALCIUM 8.1 mg/dL (8.5-10.1); CO2 11 mmol/L (21-32)
[2024-01-24 12:00] LABS: GLUCOSE,RANDOM 122 mg/dL (74-106)
[2024-01-24 12:02] LABS: ANISOCYTOSIS 2+; BLOOD UREA NITROGEN 135.6 mg/dL (7-18); CREATININE 5.5 mg/dL (0.55-1.3); MACROCYTOSIS 1+; SGOT/AST 29 U/L (15-37); SGPT/ALT 18 U/L (13-61)
[2024-01-24 12:04] LABS: BILIRUBIN,TOTAL 2.5 mg/dL (0.2-1); TOT PROT 7.6 g/dl (6.4-8.2)
[2024-01-24 12:05] LABS: ALK PHOS 89 U/L (45-117)
[2024-01-24] MEDS: AMINO ACIDS 4.25%/D5W 1,000 ML IV SCH (12:23)
[2024-01-24] MEDS ORDERED: FUROSEMIDE INJECTION 100 MG in DEXTROSE 5%-WATER - 40 ML IVPB SCH (15:15)
[2024-01-24] MEDS: FUROSEMIDE INJECTION 100 MG in DEXTROSE 5%-WATER - 40 ML IVPB SCH (17:17)
[2024-01-24] MEDS ORDERED: MIDODRINE HCL 5 MG TABLET PO ONE (22:34)
[2024-01-25] MEDS: FUROSEMIDE INJECTION 100 MG in DEXTROSE 5%-WATER - 40 ML IVPB SCH (14:01)
[2024-01-25] MEDS: AMINO ACIDS 4.25%/D5W 1,000 ML IV SCH (16:00)
[2024-01-25 16:05] VITALS: RESP 18
[2024-01-26] MEDS: FUROSEMIDE INJECTION 100 MG in DEXTROSE 5%-WATER - 40 ML IVPB SCH (09:58)
[2024-01-26] MEDS ORDERED: DEXTROSE 50%-WATER - 25 GM/50 ML VIAL IVPUSH PRN (13:17)
[2024-01-26] MEDS ORDERED: FENTANYL PATCH WASTE TD PRN (13:18)
[2024-01-26] MEDS: fentaNYL 12mcg/hr PATCH.TD72 TD SCH (13:53)
[2024-01-26 14:20] VITALS: TEMP 97.5
[2024-01-26] MEDS: DEXTROSE 50%-WATER 25 GM/50 ML DISP.SYRIN IVPUSH PRN (14:32)
[2024-01-26] MEDS ORDERED: MORPHINE SULFATE/0.9% NACL/PF 100 MG/100 ML BAG IVPB SCH (16:15)
[2024-01-26] MEDS: morphine SULFATE 4 MG/ML VIAL IVPUSH ONE (16:35)
[2024-01-26] MEDS: SCOPOLAMINE HYDROBROMIDE 1 PATCH PATCH.TD72 TD SCH (16:36)
[2024-01-26 16:47] VITALS: BP 50/13; PULSE 95
[2024-01-26] MEDS: MORPHINE 100 MG/100 ML MG IVPB SCH (20:00)
== END 2024-01-26 21:20 | disposition expired | DRG 871 ==
LOC: JER 00:22 → JERBED 01:34 → JICU 04:17 → J2W 01-14 19:49 → J4S 01-22 00:23
PROVIDERS: ADMIT Internal Medicine Pulmonary Disease; ATTEND Family Medicine
PROC: 05HN33Z Insertion of Infusion Device into Left Internal Jugular Vein, Percutaneous Approach (ICD-10-PCS; principal; 2024-01-10)
PROC: B544ZZA Ultrasonography of Left Jugular Veins, Guidance (ICD-10-PCS; 2024-01-10)
PROC: 5A1945Z Respiratory Ventilation, 24-96 Consecutive Hours (ICD-10-PCS; 2024-01-10)
DX: A41.89 Other specified sepsis (principal); G93.41 Metabolic encephalopathy; I50.23 Acute on chronic systolic (congestive) heart failure; L89.154 Pressure ulcer of sacral region, stage 4; J69.0 Pneumonitis due to inhalation of food and vomit; R65.21 Severe sepsis with septic shock; R53.2 Functional quadriplegia; J96.01 Acute respiratory failure with hypoxia; I48.20 Chronic atrial fibrillation, unspecified; I13.0 Hypertensive heart and chronic kidney disease with heart failure and stage 1 through stage 4 chronic kidney disease, or unspecified chronic kidney disease; E87.20 Acidosis, unspecified; L97.518 Non-pressure chronic ulcer of other part of right foot with other specified severity; L97.528 Non-pressure chronic ulcer of other part of left foot with other specified severity; N17.9 Acute kidney failure, unspecified; R80.9 Proteinuria, unspecified; R57.0 Cardiogenic shock; R33.9 Retention of urine, unspecified; E11.621 Type 2 diabetes mellitus with foot ulcer; R62.7 Adult failure to thrive; Z68.22 Body mass index [BMI] 22.0-22.9, adult; E87.6 Hypokalemia; R56.9 Unspecified convulsions; E78.5 Hyperlipidemia, unspecified; R68.0 Hypothermia, not associated with low environmental temperature; I25.10 Atherosclerotic heart disease of native coronary artery without angina pectoris; K21.9 Gastro-esophageal reflux disease without esophagitis; E11.22 Type 2 diabetes mellitus with diabetic chronic kidney disease; E11.649 Type 2 diabetes mellitus with hypoglycemia without coma; N18.31 Chronic kidney disease, stage 3a; E11.51 Type 2 diabetes mellitus with diabetic peripheral angiopathy without gangrene; N40.0 Benign prostatic hyperplasia without lower urinary tract symptoms; E11.42 Type 2 diabetes mellitus with diabetic polyneuropathy; Z89.422 Acquired absence of other left toe(s); Z89.421 Acquired absence of other right toe(s); Z95.0 Presence of cardiac pacemaker
CPT/HCPCS: 0241U-QW; 36415; 36600; 70450-TC; 71045-TC-FY; 76700-TC; 80048; 80053; 81003; 82803; 82962; 83605; 83735; 84100; 84484; 85025; 85027; 85610; 85730; 86850; 86900; 86901; 87040; 87070; 87081; 87086; 87205; 93005; 93010; 94002; 99285-25; G0480; J0131; J1250; J1644